=== PATIENT | male | born 1960 | race American Indian/Alaskan Native ===

== ENCOUNTER 2020-09-01 00:47 | Inpatient (IN) | payer SELFPAY ==
[2020-09-01] MEDS ORDERED: SODIUM CHLORIDE 0.9% 1000 ML 1,000 ML IV ONE (01:01)
--- NOTE | 2020-09-01 01:07 | Emergency Department Report ---
ED Altered Mental Status HPI - General Chief Complaint: Altered Mental Status Stated Complaint: BODY PAIN Time Seen by Provider: 09/01/20 01:01 Source: patient, EMS Mode of arrival: Stretcher Limitations: Altered Mental Status - History of Present Illness Initial Comments: Patient is 59 years old male with unknown past medical history. Patient brought to the emergency room via EMS from a local residence. EMS stated that patient is living in a house with approximately 20 other people. EMS stated that patient roommate called EMS stating that he is became more altered recently and confused and he heard him moaning tonight. Patient is alert however he is disoriented in time place and person. Patient stated that he is hurting all over. Patient is shaking. Patient admitted using alcohol daily and stated that the last time he drink yesterday. Unable to obtain more history at this point. MD Complaint: altered mental status, confusion -: unknown Context: alcohol abuse - Related Data Allergies Allergy/AdvReac Type Severity Reaction Status Date / Time lisinopril Allergy Angioedema Verified 09/01/20 02:24 ED Review of Systems ROS: Stated complaint: BODY PAIN Other details as noted in HPI Comment: All other systems reviewed and negative Constitutional: denies: chills, fever Cardiovascular: denies: chest pain Gastrointestinal: nausea Musculoskeletal: denies: back pain Neurological: weakness. denies: headache ED Physical Exam - General Limitations: Altered Mental Status General appearance: alert, in no apparent distress, cachectic - Head Head exam: Present: atraumatic, normocephalic, normal inspection - Eye Eye exam: Present: normal appearance - ENT ENT exam: Present: mucous membranes dry - Neck Neck exam: Present: normal inspection, full ROM. Absent: tenderness, menin gismus - Respiratory Respiratory exam: Present: normal lung sounds bilaterally - Cardiovascular Cardiovascular Exam: Present: regular rate, normal rhythm, normal heart sounds - GI/Abdominal GI/Abdominal exam: Present: soft, normal bowel sounds. Absent: distended, tenderness, guarding, rebound, rigid, organomegaly, mass, bruit, pulsatile mass, hernia - Extremities Exam Extremities exam: Present: normal inspection, full ROM, normal capillary refill - Back Exam Back exam: Present: normal inspection, full ROM. Absent: CVA tenderness (R), CVA tenderness (L) - Neurological Exam Neurological exam: Present: alert, altered, CN II-XII intact, reflexes normal. Absent: motor sensory deficit - Psychiatric Psychiatric exam: Present: flat affect - Skin Skin exam: Present: warm, dry, intact ED Course Vital Signs 09/01/20 09/01/20 09/01/20 01:11 01:12 02:38 Temperature 98.7 F Pulse Rate 84 77 Respiratory 18 18 10 L Rate Blood Pressure Blood Pressure 157/99 [Right] O2 Sat by Pulse 100 100 100 Oximetry 09/01/20 09/01/20 03:01 03:18 Temperature Pulse Rate 68 68 Respiratory 12 Rate Blood Pressure 142/96 Blood Pressure [Right] O2 Sat by Pulse 100 Oximetry - Lab Data Result diagrams: 09/01/20 01:20 09/01/20 01:20 Lab Results 09/01/20 09/01/20 09/01/20 Range/Units 01:20 01:20 01:20 WBC 9.0 (4.5-11.0) K/mm3 RBC 3.73 (3.65-5.03) M/mm3 Hgb 13.5 (11.8-15.2) gm/dl Hct 38.1 (35.5-45.6) % MCV 102 H (84-94) fl MCH 36 H (28-32) pg MCHC 35 H (32-34) % RDW 13.0 L (13.2-15.2) % Plt Count 149 (140-440) K/mm3 Lymph % (Auto) 6.7 L (13.4-35.0) % [place] % (Auto) 4.8 (0.0-7.3) % Eos % (Auto) 0.1 (0.0-4.3) % Baso % (Auto) 0.2 (0.0-1.8) % Lymph # (Auto) 0.6 L (1.2-5.4) K/mm3 [place] # (Auto) 0.4 (0.0-0.8) K/mm3 Eos # (Auto) 0.0 (0.0-0.4) K/mm3 Baso # (Auto) 0.0 (0.0-0.1) K/mm3 Seg Neutrophils % 88.2 H (40.0-70.0) % Seg Neutrophils # 7.9 H (1.8-7.7) K/mm3 PT 13.1 (12.2-14.9) Sec. INR 1.01 (0.87-1.13) APTT 34.5 (24.2-36.6) Sec. Sodium 122 L (137-145) mmol/L Potassium 3.9 (3.6-5.0) mmol/L Chloride 80.5 L (98-107) mmol/L Carbon Dioxide 24 (22-30) mmol/L Anion Gap 21 mmol/L BUN 20 (9-20) mg/dL Creatinine 1.1 (0.8-1.3) mg/dL Estimated GFR > 60 ml/min BUN/Creatinine Ratio 18 % Glucose 113 H (75-100) mg/dL Lactic Acid (0.7-2.0) mmol/L Calcium 8.9 (8.4-10.2) mg/dL Total Bilirubin 1.40 H (0.1-1.2) mg/dL Direct Bilirubin 0.7 H (0-0.2) mg/dL Indirect Bilirubin 0.7 mg/dL AST 263 H (5-40) units/L ALT 156 H (7-56) units/L Alkaline Phosphatase 210 H (35-129) units/L Ammonia (25-60) umol/L Troponin T < 0.010 (0.00-0.029) ng/mL Total Protein 6.6 (6.3-8.2) g/dL Albumin 4.0 (3.9-5) g/dL Albumin/Globulin Ratio 1.5 % TSH (0.270-4.200) mlU/mL Plasma/Serum Alcohol (0-0.07) % 09/01/20 09/01/20 09/01/20 Range/Units 01:20 01:20 01:20 WBC (4.5-11.0) K/mm3 RBC (3.65-5.03) M/mm3 Hgb (11.8-15.2) gm/dl Hct (35.5-45.6) % MCV (84-94) fl MCH (28-32) pg MCHC (32-34) % RDW (13.2-15.2) % Plt Count (140-440) K/mm3 Lymph % (Auto) (13.4-35.0) % [place] % (Auto) (0.0-7.3) % Eos % (Auto) (0.0-4.3) % Baso % (Auto) (0.0-1.8) % Lymph # (Auto) (1.2-5.4) K/mm3 [place] # (Auto) (0.0-0.8) K/mm3 Eos # (Auto) (0.0-0.4) K/mm3 Baso # (Auto) (0.0-0.1) K/mm3 Seg Neutrophils % (40.0-70.0) % Seg Neutrophils # (1.8-7.7) K/mm3 PT (12.2-14.9) Sec. INR (0.87-1.13) APTT (24.2-36.6) Sec. Sodium (137-145) mmol/L Potassium (3.6-5.0) mmol/L Chloride (98-107) mmol/L Carbon Dioxide (22-30) mmol/L Anion Gap mmol/L BUN (9-20) mg/dL Creatinine (0.8-1.3) mg/dL Estimated GFR ml/min BUN/Creatinine Ratio % Glucose (75-100) mg/dL Lactic Acid 5.40 H* (0.7-2.0) mmol/L Calcium (8.4-10.2) mg/dL Total Bilirubin (0.1-1.2) mg/dL Direct Bilirubin (0-0.2) mg/dL Indirect Bilirubin mg/dL AST (5-40) units/L ALT (7-56) units/L Alkaline Phosphatase (35-129) units/L Ammonia 18.0 L (25-60) umol/L Troponin T (0.00-0.029) ng/mL Total Protein (6.3-8.2) g/dL Albumin (3.9-5) g/dL Albumin/Globulin Ratio % TSH 2.620 (0.270-4.200) mlU/mL Plasma/Serum Alcohol (0-0.07) % 09/01/20 Range/Units 01:20 WBC (4.5-11.0) K/mm3 RBC (3.65-5.03) M/mm3 Hgb (11.8-15.2) gm/dl Hct (35.5-45.6) % MCV (84-94) fl MCH (28-32) pg MCHC (32-34) % RDW (13.2-15.2) % Plt Count (140-440) K/mm3 Lymph % (Auto) (13.4-35.0) % [place] % (Auto) (0.0-7.3) % Eos % (Auto) (0.0-4.3) % Baso % (Auto) (0.0-1.8) % Lymph # (Auto) (1.2-5.4) K/mm3 [place] # (Auto) (0.0-0.8) K/mm3 Eos # (Auto) (0.0-0.4) K/mm3 Baso # (Auto) (0.0-0.1) K/mm3 Seg Neutrophils % (40.0-70.0) % Seg Neutrophils # (1.8-7.7) K/mm3 PT (12.2-14.9) Sec. INR (0.87-1.13) APTT (24.2-36.6) Sec. Sodium (137-145) mmol/L Potassium (3.6-5.0) mmol/L Chloride (98-107) mmol/L Carbon Dioxide (22-30) mmol/L Anion Gap mmol/L BUN (9-20) mg/dL Creatinine (0.8-1.3) mg/dL Estimated GFR ml/min BUN/Creatinine Ratio % Glucose (75-100) mg/dL Lactic Acid (0.7-2.0) mmol/L Calcium (8.4-10.2) mg/dL Total Bilirubin (0.1-1.2) mg/dL Direct Bilirubin (0-0.2) mg/dL Indirect Bilirubin mg/dL AST (5-40) units/L ALT (7-56) units/L Alkaline Phosphatase (35-129) units/L Ammonia (25-60) umol/L Troponin T (0.00-0.029) ng/mL Total Protein (6.3-8.2) g/dL Albumin (3.9-5) g/dL Albumin/Globulin Ratio % TSH (0.270-4.200) mlU/mL Plasma/Serum Alcohol 0.02 (0-0.07) % - EKG Data -: EKG Interpreted by Md EKG shows normal: sinus rhythm Rate: normal Interpretation: no acute changes - Radiology Data Radiology results: report reviewed - Medical Decision Making Patient is 59 years old male with unknown past medical history. Patient brought to the emergency room via EMS from a local residence. EMS stated that patient is living in a house with approximately 20 other people. EMS stated that patient roommate called EMS stating that he is became more altered recently and confused and he heard him moaning tonight. Patient is alert however he is disoriented in time place and person. Patient stated that he is hurting all over. Patient is shaking. Patient admitted using alcohol daily and stated that the last time he drink yesterday. Unable to obtain more history at this point. Patient received normal saline and Zofran. Labs reviewed and is unremarkable except for slightly elevated liver enzyme, AST is more than ALT indicating most likely alcoholic cause. CT brain is unremarkable. Chest x-ray is negative for acute finding. Patient mention to the nurse that he is suicidal but he does not have a plan. Patient denied any homicidal ideation. No visual or auditory hallucination. CIWA protocol initiated patient CIWA score is 10. Patient received Ativan and banana bag. Patient lactic acid is 5.4. I discussed the patient with Dr. Jacobs, he agreed to admit the patient to medical service for further management. Critical care attestation.: If time is entered above; I have spent that time in minutes in the direct care of this critically ill patient, excluding procedure time. ED Disposition Clinical Impression: Delirium tremens, Altered mental status, Lactic acidosis, Dehydration Disposition: 09 OP ADMIT IP TO THIS HOSP Is pt being admited?: Yes Condition: Stable Referrals: PRIMARY CARE, [Primary Care Provider] - 3-5 Days
--- NOTE | 2020-09-01 01:44 | XRay Report ---
XR chest 1V ap INDICATION / CLINICAL INFORMATION: Altered Mental Status. COMPARISON: None available. FINDINGS: SUPPORT DEVICES: None. HEART /PULMONARY VASCULATURE: No significant abnormality. LUNGS / PLEURA: No significant pulmonary or pleural abnormality. No pneumothorax. ADDITIONAL FINDINGS: No significant additional findings. IMPRESSION: 1. No acute findings. Signer Name: Bogdan Barrett MD Signed: 09/01/2020 1:40 AM Workstation Name: [id number]
--- NOTE | 2020-09-01 02:07 | Cat Scan Report ---
CT HEAD WITHOUT CONTRAST INDICATION / CLINICAL INFORMATION: Altered Mental Status. TECHNIQUE: All CT scans at this location are performed using CT dose reduction for ALARA by means of automated exposure control. COMPARISON: None available. FINDINGS: BRAIN PARENCHYMA: No acute intracranial hemorrhage. No evidence of recent infarct. No mass effect or midline shift. White matter chronic small vessel ischemic changes. VENTRICULAR SYSTEM/EXTRA-AXIAL SPACES: Age-related cerebral atrophy. No extra-axial fluid collection. ORBITS: Normal as visualized. SKELETAL SYSTEM/SOFT TISSUES: Normal bones and soft tissues. PARANASAL SINUSES/MASTOID AIR CELLS: No significant abnormality. ADDITIONAL FINDINGS: None. IMPRESSION: 1. No acute intracranial abnormality. Signer Name: Bogdan Barrett MD Signed: 09/01/2020 2:02 AM Workstation Name: [id number]
[2020-09-01 02:11] LABS: Basophils % (Auto) 0.2 % (0.0-1.8); Eosinophils % (Auto) 0.1 % (0.0-4.3); Hematocrit 38.1 % (35.5-45.6); Hemoglobin 13.5 gm/dl (11.8-15.2); Lymphocytes # (Auto) 0.6 K/mm3 (1.2-5.4); Lymphocytes % (Auto) 6.7 % (13.4-35.0); Mean Corpuscular HGB Conc 35 % (32-34); Mean Corpuscular Volume 102 fl (84-94); Monocytes # (Auto) 0.4 K/mm3 (0.0-0.8); Monocytes % (Auto) 4.8 % (0.0-7.3); Platelet Count 149 K/mm3 (140-440); Red Blood Count 3.73 M/mm3 (3.65-5.03)
[2020-09-01 02:20] LABS: Alanine Aminotransferase 156 units/L (7-56); BUN/Creatinine Ratio 18; Bilirubin,Direct 0.7 mg/dL (0-0.2); Blood Urea Nitrogen 20 mg/dL (9-20); Calcium 8.9 mg/dL (8.4-10.2); Hemolysis Index 7; INR 1.01 (0.87-1.13)
[2020-09-01 02:21] LABS: Partial Thromboplastin Time 34.5 Sec. (24.2-36.6)
[2020-09-01] MEDS ORDERED: ONDANSETRON 4 MG/2 ML INJ ONE (02:26)
[2020-09-01] MEDS ORDERED: ONDANSETRON 4 MG/2 ML INJ IV ONE (02:26)
[2020-09-01] MEDS ORDERED: LORazepam 2 MG/ML VIAL IV PRN ×2 (03:07)
[2020-09-01] MEDS: LORazepam 2 MG/ML VIAL IV PRN ×2 (03:43→11:55)
[2020-09-01] MEDS ORDERED: THIAMINE 100 MG, FOLIC ACID 1 MG, MULTIPLE VITAMIN INJ, ADULT 10 ML in SODIUM CHLORIDE ... IV ONE (03:48)
--- NOTE | 2020-09-01 08:58 | Consultation ---
History of Present Illness - Reason for Consult Consult date: 09/01/20 Reason for consult: MHE Requesting physician: DESI CAVAZOS - History of Present Psychiatric Illness Per ED Provider: Patient is 59 years old male with unknown past medical history. Patient brought to the emergency room via EMS from a local residence. EMS stated that patient is living in a house with approximately 20 other people. EMS stated that patient roommate called EMS stating that he is became more altered recently and confused and he heard him moaning tonight. Patient is alert however he is disoriented in time place and person. Patient stated that he is hurting all over. Patient is shaking. Patient admitted using alcohol daily and stated that the last time he drink yesterday. Unable to obtain more history at this point. PSYCH HPI Patient is a 59-year-old single, currently unemployed -[place] male who resides in a rented apartment with other people with no past psychiatric history and has past medical history of hypertension diabetes who was brought to the ED by EMS after roommate complaining of patient altered mental status and confusion. Per patient, patient reported he is in the hospital because there is something wrong with him but he does not know, patient states he has been feeling different and ill on the inside lately, endorses sometimes he does hear voices in his head. Patient endorses consuming beer on a daily basis, reported he was working until 2 to 3 weeks ago, denies any past psychiatric history but endorses medical history. PAST PSYCHIATRIC HISTORY Diagnoses: None reported Suicide attempts or Self-harm behavior: None reported Prior psychiatric hospitalizations: None reported Substance Abuse history: Alcohol Previous psychiatric medications tried: None reported Outpatient treatment: None reported PAST MEDICAL HISTORY: Hypertension and type Family Psychiatric History: None reported or documented SOCIAL HISTORY Marital Status: Single Living Arrangements: Rent Employment Status: Unemployed Access to guns/weapons: Education: Some college History of Abuse: None Legal History: None REVIEW OF SYSTEMS Constitutional: Negative for weight loss ENT: Negative for stridor Respiratory: Negative for cough or hemoptysis All other systems reviewed and are negative MENTAL STATUS EXAMINATION General Appearance and Behavior: Age appropriate, good hygiene, wearing appropriate clothes, uncooperative polite with questioning. Cooperation: Withdrawn Psychomotor Behavior: Psychomotor agitation Mood: Affect and affective range: Flat Thought Process: Tangential, loose associattion Thought Content: Paranoid and confused Speech: Normal volume, Regular rate and rhythm, Intellectual Functioning: Poor Suicidal Ideation: N/A Homicidal Ideation: N/A Impulse Control: Unimpaired Insight and Judgment: Impaired Memory: memory impaired Attention:Distractible, Orientation: Alert, oriented and confused Diagnoses: Assessment and Plan - Psychiatric problem (1) Delirium due to another medical condition Current Visit: Yes Status: Acute F05 Treatment Plan Sodium is low at 122 Concern for metabolic encephalopathy, history of daily alcohol consumption concern for withdrawal/delirium tremens. Start on THiamine, and Benzzos. hOld of Deparkote, due to liver toxicity MEDICATIONS: Risks, benefits and alternatives of medications discussed with the patient, questions answered and consent obtained from patient. PSYCHOTHERAPY: Supportive psychotherapy provided MEDICAL: Per primary team DELIRIUM PRECAUTIONS: Please re-orient patient frequently, keep lights on during the day, and minimize benzodiazepines and opiates as these medications could worsen patient's confusion. ORGANIZATIONAL EFFECTIVENESS DIRECTOR: DISPOSITION: Do Not Recommend acute inpatient psychiatric hospitalization at this time. Case discussed with Dr. De León who agrees with current disposition FOLLOW-UP: Will follow for medical manner Thank you for the consult. Please contact with any questions and/or concerns. Medications and Allergies Allergies Allergy/AdvReac Type Severity Reaction Status Date / Time lisinopril Allergy Angioedema Verified 09/01/20 02:24 Home Medications Medication Instructions Recorded Confirmed Last Taken Type Unobtainable 09/01/20 09/01/20 Unknown History Active Meds: Active Medications Lorazepam (Lorazepam 2 Mg/Ml Vial) 2 mg IV Q1H PRN PRN Reason: CIWA-Ar 8-15 Last Admin: 09/01/20 03:43 Dose: 2 mg Documented by: Lorazepam (Lorazepam 2 Mg/Ml Vial) 4 mg IV Q1H PRN PRN Reason: CIWA-Ar 16-25 Lorazepam (Lorazepam 2 Mg/Ml Vial) 4 mg IV Q15MIN PRN PRN Reason: CIWA-Ar >25 Mental Status Exam - Vital signs Last Vital Signs Temp 98.7 F 09/01/20 01:11 Pulse 75 09/01/20 08:00 Resp 10 L 09/01/20 08:00 BP 144/93 09/01/20 08:00 Pulse Ox 98 09/01/20 08:00 Results Result Diagrams: 09/01/20 01:20 09/01/20 01:20 Abnormal lab results 09/01/20 09/01/20 09/01/20 Range/Units 01:20 01:20 01:20 MCV 102 H (84-94) fl MCH 36 H (28-32) pg MCHC 35 H (32-34) % RDW 13.0 L (13.2-15.2) % Lymph % (Auto) 6.7 L (13.4-35.0) % Lymph # (Auto) 0.6 L (1.2-5.4) K/mm3 Seg Neutrophils % 88.2 H (40.0-70.0) % Seg Neutrophils # 7.9 H (1.8-7.7) K/mm3 Sodium 122 L (137-145) mmol/L Chloride 80.5 L (98-107) mmol/L Glucose 113 H (75-100) mg/dL Lactic Acid 5.40 H* (0.7-2.0) mmol/L Total Bilirubin 1.40 H (0.1-1.2) mg/dL Direct Bilirubin 0.7 H (0-0.2) mg/dL AST 263 H (5-40) units/L ALT 156 H (7-56) units/L Alkaline Phosphatase 210 H (35-129) units/L Ammonia (25-60) umol/L Salicylates (2.8-20.0) mg/dL Acetaminophen (10.0-30.0) ug/mL 09/01/20 09/01/20 09/01/20 Range/Units 01:20 02:50 02:50 MCV (84-94) fl MCH (28-32) pg MCHC (32-34) % RDW (13.2-15.2) % Lymph % (Auto) (13.4-35.0) % Lymph # (Auto) (1.2-5.4) K/mm3 Seg Neutrophils % (40.0-70.0) % Seg Neutrophils # (1.8-7.7) K/mm3 Sodium (137-145) mmol/L Chloride (98-107) mmol/L Glucose (75-100) mg/dL Lactic Acid (0.7-2.0) mmol/L Total Bilirubin (0.1-1.2) mg/dL Direct Bilirubin (0-0.2) mg/dL AST (5-40) units/L ALT (7-56) units/L Alkaline Phosphatase (35-129) units/L Ammonia 18.0 L (25-60) umol/L Salicylates < 0.3 L (2.8-20.0) mg/dL Acetaminophen 5.0 L (10.0-30.0) ug/mL All other labs normal. Assessment and Plan - Psychiatric problem (1) Delirium due to another medical condition Current Visit: Yes Status: Acute
[2020-09-01] MEDS ORDERED: ONDANSETRON 4 MG/2 ML INJ IV PRN (13:37)
--- NOTE | 2020-09-01 13:39 | History and Physical Report ---
History of Present Illness Date of examination: 09/01/20 Date of admission: 09/01/20 04:29 History of present illness: 59 years old male with a medical history of hypertension, alcohol abuse and neuropathy brought to the emergency room via EMS from a local residence. EMS stated that patient is living in a house with approximately 20 other people. EMS stated that patient roommate called EMS stating that he is became more altered recently and confused and he heard him moaning at night. In the ER, patient was alert however he is disoriented in time place and person. Patient was complaining of generalized body aches and was tremulous. Uses alcohol daily and last drink was about 24 hours prior. His labs showed sodium 122, elevated liver function tests. Alcohol level was less than 0.02. Now admitted for acute metabolic encephalopathy 2/2 hyponatremia, possible EtoH. Past History Past Medical History: hypertension Social history: smoking, alcohol abuse Medications and Allergies Allergies Allergy/AdvReac Type Severity Reaction Status Date / Time lisinopril Allergy Angioedema Verified 09/01/20 02:24 Home Medications Medication Instructions Recorded Confirmed Last Taken Type Unobtainable 09/01/20 09/01/20 Unknown History Active Meds: Active Medications Acetaminophen (Acetaminophen 325 Mg Tab) 650 mg PO Q4H PRN PRN Reason: Pain MILD(1-3)/Fever >100.5/ALMENDAREZ Enoxaparin Sodium (Enoxaparin 40 Mg/0.4 Ml Inj) 40 mg SUB-Q QDAY@2200 GIULIA; Protocol Thiamine HCl 100 mg/ Sodium (Chloride) 51 mls @ 100 mls/hr IV QDAY GIULIA Lorazepam (Lorazepam 2 Mg/Ml Vial) 2 mg IV Q1H PRN PRN Reason: CIWA-Ar 8-15 Last Admin: 09/01/20 11:55 Dose: 2 mg Documented by: Lorazepam (Lorazepam 2 Mg/Ml Vial) 4 mg IV Q1H PRN PRN Reason: CIWA-Ar 16-25 Lorazepam (Lorazepam 2 Mg/Ml Vial) 4 mg IV Q15MIN PRN PRN Reason: CIWA-Ar >25 Ondansetron HCl (Ondansetron 4 Mg/2 Ml Inj) 4 mg IV Q8H PRN PRN Reason: Nausea And Vomiting Sodium Chloride (Sodium Chloride 0.9% 10 Ml Flush Syringe) 10 ml IV BID GIULIA Sodium Chloride (Sodium Chloride 0.9% 10 Ml Flush Syringe) 10 ml IV PRN PRN PRN Reason: LINE FLUSH Review of Systems All systems: negative (Bilateral leg pain) Exam - Constitutional Vitals: Temp Pulse Resp BP Pulse Ox 98.7 F 74 10 L 140/91 99 09/01/20 01:11 09/01/20 11:16 09/01/20 11:16 09/01/20 11:16 09/01/20 11:16 General appearance: Present: no acute distress, well-nourished, other (Malnourished) - EENT Eyes: Present: PERRL ENT: hearing intact, clear oral mucosa - Neck Neck: Present: supple, normal ROM - Respiratory Respiratory effort: normal Respiratory: bilateral: CTA - Cardiovascular Heart Sounds: Present: S1 & S2. Absent: rub, click - Extremities Extremities: pulses symmetrical, No edema Peripheral Pulses: within normal limits - Abdominal General gastrointestinal: Present: soft, non-tender, non-distended, normal bowel sounds Male genitourinary: Present: normal - Integumentary Integumentary: Present: clear, warm, dry - Musculoskeletal Musculoskeletal: gait normal, strength equal bilaterally - Psychiatric Psychiatric: appropriate mood/affect, intact judgment & insight - Neurologic Neurologic: CNII-XII intact, moves all extremities HEART Score - HEART Score Troponin: Troponin T < 0.010 ng/mL (0.00-0.029) 09/01/20 01:20 Results - Labs CBC & Chem 7: 09/01/20 01:20 09/01/20 01:20 Labs: Laboratory Last Values WBC 9.0 K/mm3 (4.5-11.0) 09/01/20 01:20 RBC 3.73 M/mm3 (3.65-5.03) 09/01/20 01:20 Hgb 13.5 gm/dl (11.8-15.2) 09/01/20 01:20 Hct 38.1 % (35.5-45.6) 09/01/20 01:20 MCV 102 fl (84-94) H 09/01/20 01:20 MCH 36 pg (28-32) H 09/01/20 01:20 MCHC 35 % (32-34) H 09/01/20 01:20 RDW 13.0 % (13.2-15.2) L 09/01/20 01:20 Plt Count 149 K/mm3 (140-440) 09/01/20 01:20 Lymph % (Auto) 6.7 % (13.4-35.0) L 09/01/20 01:20 [place] % (Auto) 4.8 % (0.0-7.3) 09/01/20 01:20 Eos % (Auto) 0.1 % (0.0-4.3) 09/01/20 01:20 Baso % (Auto) 0.2 % (0.0-1.8) 09/01/20 01:20 Lymph # (Auto) 0.6 K/mm3 (1.2-5.4) L 09/01/20 01:20 [place] # (Auto) 0.4 K/mm3 (0.0-0.8) 09/01/20 01:20 Eos # (Auto) 0.0 K/mm3 (0.0-0.4) 09/01/20 01:20 Baso # (Auto) 0.0 K/mm3 (0.0-0.1) 09/01/20 01:20 Seg Neutrophils % 88.2 % (40.0-70.0) H 09/01/20 01:20 Seg Neutrophils # 7.9 K/mm3 (1.8-7.7) H 09/01/20 01:20 PT 13.1 Sec. (12.2-14.9) 09/01/20 01:20 INR 1.01 (0.87-1.13) 09/01/20 01:20 APTT 34.5 Sec. (24.2-36.6) 09/01/20 01:20 Sodium 122 mmol/L (137-145) L 09/01/20 01:20 Potassium 3.9 mmol/L (3.6-5.0) 09/01/20 01:20 Chloride 80.5 mmol/L (98-107) L 09/01/20 01:20 Carbon Dioxide 24 mmol/L (22-30) 09/01/20 01:20 Anion Gap 21 mmol/L 09/01/20 01:20 BUN 20 mg/dL (9-20) 09/01/20 01:20 Creatinine 1.1 mg/dL (0.8-1.3) 09/01/20 01:20 Estimated GFR > 60 ml/min 09/01/20 01:20 BUN/Creatinine Ratio 18 % 09/01/20 01:20 Glucose 113 mg/dL (75-100) H 09/01/20 01:20 POC Glucose 90 mg/dL (70-105) 09/01/20 08:41 Lactic Acid 2.00 mmol/L (0.7-2.0) 09/01/20 03:25 Calcium 8.9 mg/dL (8.4-10.2) 09/01/20 01:20 Total Bilirubin 1.40 mg/dL (0.1-1.2) H 09/01/20 01:20 Direct Bilirubin 0.7 mg/dL (0-0.2) H 09/01/20 01:20 Indirect Bilirubin 0.7 mg/dL 09/01/20 01:20 AST 263 units/L (5-40) H 09/01/20 01:20 ALT 156 units/L (7-56) H 09/01/20 01:20 Alkaline Phosphatase 210 units/L (35-129) H 09/01/20 01:20 Ammonia 18.0 umol/L (25-60) L 09/01/20 01:20 Troponin T < 0.010 ng/mL (0.00-0.029) 09/01/20 01:20 Total Protein 6.6 g/dL (6.3-8.2) 09/01/20 01:20 Albumin 4.0 g/dL (3.9-5) 09/01/20 01:20 Albumin/Globulin Ratio 1.5 % 09/01/20 01:20 TSH 2.620 mlU/mL (0.270-4.200) 09/01/20 01:20 Salicylates < 0.3 mg/dL (2.8-20.0) L 09/01/20 02:50 Acetaminophen 5.0 ug/mL (10.0-30.0) L 09/01/20 02:50 Plasma/Serum Alcohol 0.02 % (0-0.07) 09/01/20 01:20 Microbiology: Microbiology 09/01/20 01:20 Peripheral/Venous Blood Culture - Preliminary Culture in Progress 09/01/20 01:43 Peripheral/Venous Blood Culture - Preliminary Culture in Progress Assessment and Plan Assessment and plan: #Acute metabolic encephalopathy Likely from hyponatremia Alcohol level less than 0.02 so I doubt alcohol intoxication responsible for confusion Check COVID-19 #Hyponatremia Secondary to alcohol abuse Sodium 122 Trend sodium today Urine electrolytes and serum osmolality ordered #Hypertension Patient reportedly takes amlodipine at home Monitor blood pressure for now and initiate BP medications when appropriate #Neuropathy Denies any history of diabetes Check hemoglobin A1c Gabapentin nightly #DVT prophylaxis-Lovenox Full code Disposition-likely back to home [patient stated he lives with friends]. Ordered PT/OT
[2020-09-01] MEDS ORDERED: ACETAMINOPHEN 325 MG TAB PO PRN (14:00)
[2020-09-01 14:43] LABS: BUN/Creatinine Ratio 13; Blood Urea Nitrogen 13 mg/dL (9-20); Calcium 7.8 mg/dL (8.4-10.2); Hemolysis Index 6
[2020-09-01] MEDS ORDERED: SODIUM CHLORIDE 0.9% 500 ML 500 ML IV ONE (16:17)
[2020-09-01] MEDS: SODIUM CHLORIDE 1 GM TAB PO SCH ×2 (16:46→21:46)
[2020-09-01 21:25] LABS: BUN/Creatinine Ratio 13; Blood Urea Nitrogen 16 mg/dL (9-20); Calcium 7.8 mg/dL (8.4-10.2); Hemolysis Index 25
[2020-09-01] MEDS: ENOXAPARIN 40 MG/0.4 ML INJ SUB-Q SCH (21:47)
[2020-09-02 02:42] LABS: Basophils % (Auto) 0.4 % (0.0-1.8); Eosinophils # (Auto) 0.1 K/mm3 (0.0-0.4); Eosinophils % (Auto) 0.8 % (0.0-4.3); Hematocrit 34.3 % (35.5-45.6); Hemoglobin 11.8 gm/dl (11.8-15.2); Lymphocytes % (Auto) 14.4 % (13.4-35.0); Mean Corpuscular HGB Conc 35 % (32-34); Mean Corpuscular Volume 106 fl (84-94); Monocytes # (Auto) 0.5 K/mm3 (0.0-0.8); Monocytes % (Auto) 6.9 % (0.0-7.3); Red Blood Count 3.24 M/mm3 (3.65-5.03); Red Cell Distribution Width 12.7 % (13.2-15.2)
[2020-09-02 02:56] LABS: Alanine Aminotransferase 116 units/L (7-56); Albumin 3.3 g/dL (3.9-5); BUN/Creatinine Ratio 13; Blood Urea Nitrogen 15 mg/dL (9-20); Hemolysis Index 13
[2020-09-02 03:24] LABS: Platelet Count 93 K/mm3 (140-440)
[2020-09-02 05:18] LABS: Chloride, Urine 81.2 mmolL (110-250)
[2020-09-02 05:24] LABS: Bilirubin,Urine NEG (Negative); Blood,Urine NEG (Negative); Color,Urine Yellow (Yellow); Mucus,Urine FEW /HPF; Protein,Urine <15 mg/dL mg/dL (Negative); RBC,Urine < 1.0 /HPF (0.0-6.0); WBC,Urine < 1.0 /HPF (0.0-6.0)
[2020-09-02 05:49] LABS: Amphetamine Screen,Urine PRESUMPTIVE NEGATIVE; Benzodiazepines Screen,Urine PRESUMPTIVE NEGATIVE; Cannabinoid Screen,Urine PRESUMPTIVE NEGATIVE; Cocaine Screen,Urine PRESUMPTIVE NEGATIVE; Methadone Screen,Urine PRESUMPTIVE NEGATIVE; Opiate Screen,Urine PRESUMPTIVE NEGATIVE
[2020-09-02] MEDS ORDERED: SODIUM CHLORIDE 0.9% 1000 ML 500 ML IV ONE (08:00)
[2020-09-02] MEDS ORDERED: POTASSIUM CHLORIDE ER 20 MEQ TAB PO NR ×2 (08:00→10:00)
[2020-09-02] MEDS: SODIUM CHLORIDE 1 GM TAB PO SCH ×2 (09:03→22:06)
[2020-09-02] MEDS: amLODIPine 10 MG TAB PO SCH (09:03)
--- NOTE | 2020-09-02 09:33 | Progress Note ---
Subjective - Reason for Consult Consult date: 09/02/20 Reason for consult: MHE Requesting physician: DESI CAVAZOS - Chief Complaint Chief complaint: Psych Progress REVIEW OF SYSTEMS Constitutional: Negative for weight loss ENT: Negative for stridor Respiratory: Negative for cough or hemoptysis All other systems reviewed and are negative MENTAL STATUS EXAMINATION General Appearance and Behavior: Age appropriate, good hygiene, wearing appropriate clothes, uncooperative polite with questioning. Cooperation: Withdrawn Psychomotor Behavior: Psychomotor agitation Mood: Affect and affective range: Flat Thought Process: Tangential, loose associattion Thought Content: Paranoid and confused Speech: Normal volume, Regular rate and rhythm, Intellectual Functioning: Poor Suicidal Ideation: N/A Homicidal Ideation: N/A Impulse Control: Unimpaired Insight and Judgment: Impaired Memory: memory impaired Attention:Distractible, Orientation: Alert, oriented and confused Diagnoses: Assessment and Plan - Psychiatric problem (1) Delirium due to another medical condition Current Visit: Yes Status: Acute F05 Treatment Plan Sodium is low at 122 Concern for metabolic encephalopathy, history of daily alcohol consumption concern for withdrawal/delirium tremens. Start on THiamine, and Benzzos. hOld of Deparkote, due to liver toxicity MEDICATIONS: Risks, benefits and alternatives of medications discussed with the patient, questions answered and consent obtained from patient. PSYCHOTHERAPY: Supportive psychotherapy provided MEDICAL: Per primary team DELIRIUM PRECAUTIONS: Please re-orient patient frequently, keep lights on during the day, and minimize benzodiazepines and opiates as these medications could worsen patient's confusion. VOCATIONAL TEACHER: DISPOSITION: Do Not Recommend acute inpatient psychiatric hospitalization at this time. Case discussed with Dr. De León who agrees with current disposition FOLLOW-UP: Will follow for medical manner Thank you for the consult. Please contact with any questions and/or concerns. Mental Status Exam - Vital signs Last Vital Signs Temp 98.8 F 09/02/20 06:02 Pulse 58 L 09/02/20 09:03 Resp 20 09/02/20 06:02 BP 143/98 09/02/20 09:03 Pulse Ox 93 09/02/20 06:02 Assessment and Plan - Patient Problems (1) Delirium due to another medical condition Current Visit: Yes Status: Acute
[2020-09-02] MEDS ORDERED: THIAMINE 100 MG in SODIUM CHLORIDE 0.9% 50 ML IV SCH (10:00)
--- NOTE | 2020-09-02 11:01 | Progress Note ---
Assessment and Plan Assessment and plan: #Acute metabolic encephalopathy Resolved Likely from hyponatremia Alcohol level less than 0.02 so I doubt alcohol intoxication responsible for confusion COVID-19 test pending #Hyponatremia Improving Secondary to alcohol abuse #Hypertension Patient reportedly takes amlodipine at home Monitor blood pressure for now and initiate BP medications when appropriate #Neuropathy Denies any history of diabetes Check hemoglobin A1c Gabapentin nightly #Protein calorie malnutrition-moderate Nutrition evaluation #Lactic acidosis Lactic acid 3.5. Bolus NS Trend lactic acid #DVT prophylaxis-Lovenox Full code Disposition-likely back to home [patient stated he lives with friends]. Ordered PT/OT History Interval history: Patient seen and examined at bedside this morning Remains on alcohol withdrawal protocol Lactic acid still elevated. Afebrile CT chest and abdomen/pelvis ordered Hospitalist Physical - Physical exam Narrative exam: VITAL SIGNS: Reviewed. GENERAL: Awake HEAD: No signs of head trauma. EYES: Pupils are equal. Extraocular motions intact. MOUTH: Oropharynx is normal. NECK: No adenopathy, no JVD. CHEST: Chest with diminished breath sounds bilaterally. No wheezes, rales, or rhonchi. CARDIAC: normal S1 and S2, without murmurs, gallops, or rubs. ABDOMEN: Soft, non tender and non distended. No rebound or guarding, and no masses palpated. Bowel Sounds normal. MUSCULOSKELETAL: No edema NEUROLOGIC EXAM: Alert and oriented x3. No focal neurologic deficits SKIN: No obvious lesions - Constitutional Vitals: Temp Pulse Resp BP Pulse Ox 98.8 F 58 L 20 143/98 93 09/02/20 06:02 09/02/20 09:03 09/02/20 06:02 09/02/20 09:03 09/02/20 06:02 HEART Score - HEART Score Troponin: Troponin T < 0.010 ng/mL (0.00-0.029) 09/01/20 01:20 Results - Labs CBC & Chem 7: 09/02/20 02:21 09/02/20 02:21 Labs: Laboratory Last Values WBC 7.0 K/mm3 (4.5-11.0) 09/02/20 02:21 RBC 3.24 M/mm3 (3.65-5.03) L 09/02/20 02:21 Hgb 11.8 gm/dl (11.8-15.2) 09/02/20 02:21 Hct 34.3 % (35.5-45.6) L 09/02/20 02:21 MCV 106 fl (84-94) H 09/02/20 02:21 MCH 37 pg (28-32) H 09/02/20 02:21 MCHC 35 % (32-34) H 09/02/20 02:21 RDW 12.7 % (13.2-15.2) L 09/02/20 02:21 Plt Count 93 K/mm3 (140-440) L 09/02/20 02:21 Lymph % (Auto) 14.4 % (13.4-35.0) 09/02/20 02:21 [place] % (Auto) 6.9 % (0.0-7.3) 09/02/20 02:21 Eos % (Auto) 0.8 % (0.0-4.3) 09/02/20 02:21 Baso % (Auto) 0.4 % (0.0-1.8) 09/02/20 02:21 Lymph # (Auto) 1.0 K/mm3 (1.2-5.4) L 09/02/20 02:21 [place] # (Auto) 0.5 K/mm3 (0.0-0.8) 09/02/20 02:21 Eos # (Auto) 0.1 K/mm3 (0.0-0.4) 09/02/20 02:21 Baso # (Auto) 0.0 K/mm3 (0.0-0.1) 09/02/20 02:21 Seg Neutrophils % 77.5 % (40.0-70.0) H 09/02/20 02:21 Seg Neutrophils # 5.4 K/mm3 (1.8-7.7) 09/02/20 02:21 PT 13.1 Sec. (12.2-14.9) 09/01/20 01:20 INR 1.01 (0.87-1.13) 09/01/20 01:20 APTT 34.5 Sec. (24.2-36.6) 09/01/20 01:20 Sodium 133 mmol/L (137-145) L 09/02/20 02:21 Potassium 3.3 mmol/L (3.6-5.0) L 09/02/20 02:21 Chloride 96.3 mmol/L (98-107) L 09/02/20 02:21 Carbon Dioxide 23 mmol/L (22-30) 09/02/20 02:21 Anion Gap 17 mmol/L 09/02/20 02:21 BUN 15 mg/dL (9-20) 09/02/20 02:21 Creatinine 1.2 mg/dL (0.8-1.3) 09/02/20 02:21 Estimated GFR > 60 ml/min 09/02/20 02:21 BUN/Creatinine Ratio 13 % 09/02/20 02:21 Glucose 116 mg/dL (75-100) H 09/02/20 02:21 POC Glucose 90 mg/dL (70-105) 09/01/20 08:41 Osmolality 275 Mosm/kg 09/01/20 14:05 Lactic Acid 3.50 mmol/L (0.7-2.0) H* 09/02/20 09:31 Calcium 8.0 mg/dL (8.4-10.2) L 09/02/20 02:21 Total Bilirubin 1.00 mg/dL (0.1-1.2) 09/02/20 02:21 Direct Bilirubin 0.7 mg/dL (0-0.2) H 09/01/20 01:20 Indirect Bilirubin 0.7 mg/dL 09/01/20 01:20 AST 194 units/L (5-40) H 09/02/20 02:21 ALT 116 units/L (7-56) H 09/02/20 02:21 Alkaline Phosphatase 208 units/L (35-129) H 09/02/20 02:21 Ammonia 18.0 umol/L (25-60) L 09/01/20 01:20 Total Creatine Kinase 64 units/L (55-170) 09/01/20 14:05 Troponin T < 0.010 ng/mL (0.00-0.029) 09/01/20 01:20 Total Protein 5.3 g/dL (6.3-8.2) L 09/02/20 02:21 Albumin 3.3 g/dL (3.9-5) L 09/02/20 02:21 Albumin/Globulin Ratio 1.7 % 09/02/20 02:21 TSH 2.620 mlU/mL (0.270-4.200) 09/01/20 01:20 Urine Color Yellow (Yellow) 09/01/20 Unknown Urine Turbidity Clear (Clear) 09/01/20 Unknown Urine pH 5.0 (5.0-7.0) 09/01/20 Unknown Ur Specific [place] 1.011 (1.003-1.030) 09/01/20 Unknown Urine Protein <15 mg/dl mg/dL (Negative) 09/01/20 Unknown Urine Glucose (UA) Neg mg/dL (Negative) 09/01/20 Unknown Urine Ketones Neg mg/dL (Negative) 09/01/20 Unknown Urine Blood Neg (Negative) 09/01/20 Unknown Urine Nitrite Neg (Negative) 09/01/20 Unknown Urine Bilirubin Neg (Negative) 09/01/20 Unknown Urine Urobilinogen 4.0 mg/dL (<2.0) 09/01/20 Unknown Ur Leukocyte Esterase Neg (Negative) 09/01/20 Unknown Urine WBC (Auto) < 1.0 /HPF (0.0-6.0) 09/01/20 Unknown Urine RBC (Auto) < 1.0 /HPF (0.0-6.0) 09/01/20 Unknown Urine Mucus Few /HPF 09/01/20 Unknown Urine Osmolality 430 Mosm/kg 09/01/20 Unknown Urine Sodium 67 mmol/L 09/01/20 Unknown Urine Chloride 81.2 mmolL (110-250) L 09/01/20 Unknown Salicylates < 0.3 mg/dL (2.8-20.0) L 09/01/20 02:50 Urine Opiates Screen Presumptive negative 09/01/20 Unknown Urine Methadone Screen Presumptive negative 09/01/20 Unknown Acetaminophen 5.0 ug/mL (10.0-30.0) L 09/01/20 02:50 Ur Barbiturates Screen Presumptive negative 09/01/20 Unknown Ur Phencyclidine Scrn Presumptive negative 09/01/20 Unknown Ur Amphetamines Screen Presumptive negative 09/01/20 Unknown U Benzodiazepines Scrn Presumptive negative 09/01/20 Unknown Urine Cocaine Screen Presumptive negative 09/01/20 Unknown U Marijuana (THC) Screen Presumptive negative 09/01/20 Unknown Drugs of Abuse Note Disclamer 09/01/20 Unknown Plasma/Serum Alcohol 0.02 % (0-0.07) 09/01/20 01:20 Microbiology: Microbiology 09/01/20 01:20 Peripheral/Venous Blood Culture - Preliminary NO GROWTH AFTER 24 HOURS 09/01/20 01:43 Peripheral/Venous Blood Culture - Preliminary NO GROWTH AFTER 24 HOURS [place]/IV: Voiding Method Urinal Active Medications - Current Medications Current Medications: Generic Name Dose Route Start Last Admin Trade Name Freq PRN Reason Stop Dose Admin Acetaminophen 650 mg 09/01/20 14:00 09/01/20 14:24 Acetaminophen 325 Mg Tab PO 650 mg Q4H PRN Administration Pain MILD(1-3)/Fever >100.5/ALMENDAREZ Amlodipine Besylate 10 mg 09/02/20 10:00 09/02/20 09:03 Amlodipine 10 Mg Tab PO 10 mg QDAY GIULIA Administration Enoxaparin Sodium 40 mg 09/01/20 22:00 09/01/20 21:47 Enoxaparin 40 Mg/0.4 Ml Inj SUB-Q 40 mg QDAY@2200 GIULIA Administration Protocol Gabapentin 300 mg 09/02/20 18:00 Gabapentin 300 Mg Cap PO QPM GIULIA Lorazepam 2 mg 09/01/20 03:07 09/01/20 11:55 Lorazepam 2 Mg/Ml Vial IV 2 mg Q1H PRN Administration CIWA-Ar 8-15 Lorazepam 4 mg 09/01/20 03:07 Lorazepam 2 Mg/Ml Vial IV Q1H PRN CIWA-Ar 16-25 Lorazepam 4 mg 09/01/20 03:07 Lorazepam 2 Mg/Ml Vial IV Q15MIN PRN CIWA-Ar >25 Ondansetron HCl 4 mg 09/01/20 13:37 Ondansetron 4 Mg/2 Ml Inj IV Q8H PRN Nausea And Vomiting Potassium Chloride 20 meq 09/02/20 10:00 09/02/20 09:04 Potassium Chloride Er 20 Meq Tab PO 09/02/20 12:00 20 meq ONCE@1000 NR Administration Sodium Chloride 10 ml 09/01/20 22:00 09/02/20 09:26 Sodium Chloride 0.9% 10 Ml Flush Syringe IV 10 ml BID GIULIA Administration Sodium Chloride 10 ml 09/01/20 13:37 Sodium Chloride 0.9% 10 Ml Flush Syringe IV PRN PRN LINE FLUSH Sodium Chloride 1 gm 09/01/20 14:00 09/02/20 09:03 Sodium Chloride 1 Gm Tab PO 1 gm BID GIULIA Administration Thiamine HCl 100 mg 09/02/20 10:00 Thiamine 100 Mg Tab PO QDAY GIULIA
--- NOTE | 2020-09-02 12:30 | Cat Scan Report ---
CT chest wo con, CT abdomen pelvis wo con INDICATION: Rule out lung infection. TECHNIQUE: All CT scans at this location are performed using CT dose reduction for ALARA by means of automated e xposure control. COMPARISON: None available. FINDINGS: CT CHEST: No mediastinal, hilar or axillary adenopathy is apparent on this noncontrast exam. Chronic lung disea se, with fairly large bullae in the upper lungs, but no acute pulmonary or pleural disease. CT ABDOMEN: Liver, spleen, pancreas, kidneys and adrenals are grossly negative on this noncontrast study. Gallbla dder is partially collapsed, with no obvious stones. Abdominal aorta is atherosclerotic but normal in size. No adenopathy. CT PELVIS: Urinary bladder and distal ureters are negative. There is fluid-filled bowel in the inferior pelvis, but I do not see significant free fluid. No acute skeletal lesions. IMPRESSION: 1. COPD. No evidence of pneumonia or other acute abnormality in the lungs. 2. No acute abnormalities are demonstrated in the abdomen or pelvis. Signer Name: Caleb Desouza MD Signed: 09/02/2020 12:26 PM Workstation Name: [id number]
[2020-09-02] MEDS: THIAMINE 100 MG TAB PO SCH (17:24)
[2020-09-02] MEDS: SODIUM CHLORIDE 0.9% 1000 ML 1,000 ML IV SCH (17:24)
[2020-09-02] MEDS ORDERED: GABAPENTIN 300 MG CAP PO SCH (18:00)
[2020-09-02] MEDS: ENOXAPARIN 40 MG/0.4 ML INJ SUB-Q SCH (22:05)
[2020-09-02] MEDS: LORazepam 2 MG/ML VIAL IV PRN (22:06)
[2020-09-03] MEDS: SODIUM CHLORIDE 0.9% 1000 ML 1,000 ML IV SCH (06:07)
[2020-09-03] MEDS: THIAMINE 100 MG TAB PO SCH (09:13)
[2020-09-03] MEDS: amLODIPine 10 MG TAB PO SCH (09:13)
[2020-09-03] MEDS ORDERED: THIAMINE 100 MG TAB PO SCH (10:00)
[2020-09-03] MEDS: SODIUM CHLORIDE 1 GM TAB PO SCH (11:02)
--- NOTE | 2020-09-03 11:15 | Discharge Summary ---
Providers - Providers Date of Admission: 09/01/20 04:29 Date of discharge: 09/03/20 Attending physician: DESI CAVAZOS 09/01/20 08:16 psychiatry consult [Consult to Mental Health] [CONS] Routine Reason For Exam: Alcohol abuse with ?suicidal intention 09/02/20 10:15 Physical Therapy Evaluation and Treat [CONS] Stat Comment: Reason For Exam: pending discharge Primary care physician: [facility] Hospitalization Condition: Stable Hospital course: 59 years old male with a medical history of hypertension, alcohol abuse and neuropathy brought to the emergency room via EMS from a local residence. EMS stated that patient is living in a house with approximately 20 other people. EMS stated that patient roommate called EMS stating that he is became more altered recently and confused and he heard him moaning at night. In the ER, patient was alert however he is disoriented in time place and person. Patient was complaining of generalized body aches and was tremulous. Uses alcohol daily and last drink was about 24 hours prior. His labs showed sodium 122, elevated liver function tests. Alcohol level was less than 0.02. Now admitted for acute metabolic encephalopathy 2/2 hyponatremia, possible EtoH. Patient was started on CIWA protocol and monitored on the floors. She subsequently improved. Sodium level also continue to improve. Patient has significant alcohol use and has been advised to cut down alcohol for now. His lactic acid on admission was 5.4 and he received multiple fluid boluses. CT chest and CT abdomen showed no acute pathology. COVID-19 test is negative. His lactic acid at discharge is 1.9. He is alert and oriented x3. He has been seen by physical therapy recommends home PT. He will be discharged home to follow-up with PCP. He agrees with treatment plan. Disposition: [id number] HOME UNDER HOME [facility] Time spent for discharge: 35 mins - Discharge Diagnoses (1) Acute metabolic encephalopathy Status: Acute (2) Hyponatremia Status: Acute (3) Delirium tremens Status: Acute (4) Lactic acidosis Status: Acute Core Measure Documentation - Palliative Care Palliative Care/ Comfort Measures: Not Applicable - Core Measures Any of the following diagnoses?: none Exam - Physical Exam Narrative exam: VITAL SIGNS: Reviewed. GENERAL: Awake HEAD: No signs of head trauma. EYES: Pupils are equal. Extraocular motions intact. MOUTH: Oropharynx is normal. NECK: No adenopathy, no JVD. CHEST: Chest with diminished breath sounds bilaterally. No wheezes, rales, or rhonchi. CARDIAC: normal S1 and S2, without murmurs, gallops, or rubs. ABDOMEN: Soft, non tender and non distended. No rebound or guarding, and no masses palpated. Bowel Sounds normal. MUSCULOSKELETAL: No edema NEUROLOGIC EXAM: Alert and oriented x3. No focal neurologic deficits SKIN: No obvious lesions - Constitutional Vitals: Temp Pulse Resp BP Pulse Ox 98.6 F 78 18 128/77 99 09/03/20 08:38 09/03/20 09:13 09/03/20 08:38 09/03/20 09:13 09/03/20 08:38 Plan Additional Instructions: Continue medication as prescribed. Stop alcohol abuse. Follow-up with PCP in 1 to 2 weeks Follow up with: PRIMARY CAREMD [Primary Care Provider] - 3-5 Days Prescriptions: amLODIPine 10 mg PO QDAY #30 tablet Gabapentin 300 mg PO QPM #30 capsule Sodium Chloride 1 gm PO BID #14 tablet
[2020-09-03 15:11] VITALS: BP 134/86
== END 2020-09-03 15:13 | disposition home health service (06) | DRG 640 ==
LOC: ED 00:47 → 4A 04:29 → 3A 20:05 → 4A 09-02 16:10
PROVIDERS: ADMIT Internal Medicine; ATTEND Internal Medicine
DX: E87.1 Hypo-osmolality and hyponatremia (principal); G93.41 Metabolic encephalopathy; F10.231 Alcohol dependence with withdrawal delirium; E44.0 Moderate protein-calorie malnutrition; E87.2 Acidosis; I10 Essential (primary) hypertension; Z20.822 Contact with and (suspected) exposure to COVID-19; G62.9 Polyneuropathy, unspecified; E86.0 Dehydration
CPT/HCPCS: 36415; 70450; 71045; 71250; 74176; 80048; 80053; 80076; 80307; 80320; 81001; 82140; 82436; 82550; 82962; 83930; 83935; 84300; 84443; 84484; 85025; 85610; 85730; 87040; 93005; 96365; 96366; 96375; 99406; G0378; G0480; J1650; J2060; J2405; J3411; J7030; J7040; J7050; U0003

== ENCOUNTER 2020-11-11 14:26 | Inpatient (IN) | payer OTHER, SELFPAY ==
[2020-11-11 15:37] LABS: Basophils # (Auto) 0.1 K/mm3 (0.0-0.1); Basophils % (Auto) 0.8 % (0.0-1.8); Eosinophils % (Auto) 0.7 % (0.0-4.3); Hematocrit 30.9 % (35.5-45.6); Lymphocytes # (Auto) 0.7 K/mm3 (1.2-5.4); Lymphocytes % (Auto) 10.3 % (13.4-35.0); Mean Corpuscular HGB Conc 36 % (32-34); Mean Corpuscular Volume 100 fl (84-94); Monocytes # (Auto) 0.5 K/mm3 (0.0-0.8); Monocytes % (Auto) 7.4 % (0.0-7.3); Platelet Count 271 K/mm3 (140-440); Red Blood Count 3.09 M/mm3 (3.65-5.03); Red Cell Distribution Width 13.5 % (13.2-15.2)
[2020-11-11 15:39] LABS: Blood Urea Nitrogen 3 mg/dL (9-20); Calcium 8.6 mg/dL (8.4-10.2); Hemolysis Index 8
[2020-11-11 15:55] LABS: BUN/Creatinine Ratio 5
--- NOTE | 2020-11-11 20:17 | XRay Report ---
CHEST 1 VIEW INDICATION / CLINICAL INFORMATION: Altered Mental Status. COMPARISON: 09/29/2020 FINDINGS: SUPPORT DEVICES: None. HEART / MEDIASTINUM: No significant abnormality. LUNGS / PLEURA: No significant pulmonary or pleural abnormality. No pneumothorax. ADDITIONAL FINDINGS: No significant additional findings. IMPRESSION: No acute disease or interval change from 09/01/2020 Signer Name: Deo Reeves MD FACR Signed: 11/11/2020 8:13 PM Workstation Name: [id number]
--- NOTE | 2020-11-11 20:37 | Emergency Department Report ---
ED General Adult HPI - General Chief complaint: Altered Mental Status Stated complaint: POSSIBLE AMS Time Seen by Provider: 11/11/20 19:34 Source: EMS Mode of arrival: Ambulatory Limitations: No Limitations - History of Present Illness Initial comments: The patient presents to the emergency department with a chief complaint of not feeling well. Patient states that she has a felt strange and states his mind is wondering. He states he is confused. Patient cannot tell me his address but cannot tell me his date of . He does describe a dull headache that is diffuse in nature. He denies any chest pain, shortness of breath, or abdominal pain. Per the records the patient was wandering through the neighborhood knocking on doors. He was dropped off at the police station by helpful neighbor and upon arriving to the police station EMS was called. -: days(s) (1) Location: head Severity scale (0 -10): 2 Quality: other (Throbbing) Consistency: constant Improves with: none Worsens with: none Associated Symptoms: denies other symptoms Treatments Prior to Arrival: none - Related Data Home Medications Medication Instructions Recorded Confirmed Last Taken Catapres 10 mg PO DAILY 09/02/20 09/02/20 Unknown Gabapentin 300 mg PO BID 09/02/20 09/02/20 Unknown Previous Rx's Medication Instructions Recorded Last Taken Type Gabapentin 300 mg PO QPM #30 capsule 09/03/20 Unknown Rx Sodium Chloride 1 gm PO BID #14 tablet 09/03/20 Unknown Rx amLODIPine 10 mg PO QDAY #30 tablet 09/03/20 Unknown Rx Allergies Allergy/AdvReac Type Severity Reaction Status Date / Time lisinopril Allergy Angioedema Verified 09/01/20 02:24 ED Review of Systems ROS: Stated complaint: POSSIBLE AMS Other details as noted in HPI Comment: All other systems reviewed and negative Constitutional: denies: chills, fever Eyes: denies: eye pain, eye discharge, vision change ENT: denies: ear pain, throat pain Respiratory: shortness of breath. denies: cough, wheezing Cardiovascular: denies: chest pain, palpitations Endocrine: no symptoms reported Gastrointestinal: denies: abdominal pain, nausea, diarrhea Genitourinary: denies: urgency, dysuria Musculoskeletal: denies: back pain, joint swelling, arthralgia Skin: denies: rash, lesions Neurological: denies: headache, weakness, paresthesias Psychiatric: denies: anxiety, depression Hematological/Lymphatic: denies: easy bleeding, easy bruising ED Past Medical Hx - Past Medical History Previous Medical History?: Yes Hx Hypertension: Yes Hx Congestive Heart Failure: No Hx Diabetes: No Hx Asthma: No Hx COPD: No Additional medical history: nerve damage, pancreatitis - Social History Smoking Status: Unknown if ever smoked - Medications Home Medications: Home Medications Medication Instructions Recorded Confirmed Last Taken Type Catapres 10 mg PO DAILY 09/02/20 09/02/20 Unknown History Gabapentin 300 mg PO BID 09/02/20 09/02/20 Unknown History Gabapentin 300 mg PO QPM #30 capsule 09/03/20 Unknown Rx Sodium Chloride 1 gm PO BID #14 tablet 09/03/20 Unknown Rx amLODIPine 10 mg PO QDAY #30 tablet 09/03/20 Unknown Rx ED Physical Exam - General Limitations: No Limitations General appearance: alert, in no apparent distress - Head Head exam: Present: atraumatic, normocephalic - Eye Eye exam: Present: normal appearance, PERRL, EOMI - ENT ENT exam: Present: mucous membranes moist - Neck Neck exam: Present: normal inspection - Respiratory Respiratory exam: Present: normal lung sounds bilaterally, wheezes. Absent: respiratory distress - Cardiovascular Cardiovascular Exam: Present: regular rate, normal rhythm. Absent: systolic murmur, diastolic murmur, rubs, gallop - GI/Abdominal GI/Abdominal exam: Present: soft, normal bowel sounds. Absent: distended, tenderness - Rectal Rectal exam: Present: deferred - Extremities Exam Extremities exam: Present: normal inspection - Back Exam Back exam: Present: normal inspection - Neurological Exam Neurological exam: Present: alert, CN II-XII intact, other (Alert but not oriented to place or time). Absent: motor sensory deficit - Psychiatric Psychiatric exam: Present: normal affect, normal mood - Skin Skin exam: Present: warm, dry, intact, normal color. Absent: rash ED Course Vital Signs 11/11/20 11/11/20 11/11/20 14:43 18:02 20:15 Temperature 98.2 F Pulse Rate 79 Respiratory 12 Rate Blood Pressure 178/103 176/106 176/106 Blood Pressure 178/103 [Right] O2 Sat by Pulse 100 100 74 L Oximetry 11/11/20 11/11/20 11/11/20 21:00 21:56 22:00 Temperature Pulse Rate 72 Respiratory 14 18 Rate Blood Pressure 147/95 155/83 Blood Pressure [Right] O2 Sat by Pulse 98 97 Oximetry 11/11/20 23:00 Temperature Pulse Rate Respiratory Rate Blood Pressure 160/76 Blood Pressure [Right] O2 Sat by Pulse 98 Oximetry ED Medical Decision Making - Lab Data Result diagrams: 11/11/20 15:07 11/11/20 20:06 Lab Results 11/11/20 11/11/20 11/11/20 Range/Units 15:07 15:07 20:06 WBC 6.6 (4.5-11.0) K/mm3 RBC 3.09 L (3.65-5.03) M/mm3 Hgb 11.0 L (11.8-15.2) gm/dl Hct 30.9 L (35.5-45.6) % MCV 100 H (84-94) fl MCH 36 H (28-32) pg MCHC 36 H (32-34) % RDW 13.5 (13.2-15.2) % Plt Count 271 (140-440) K/mm3 Lymph % (Auto) 10.3 L (13.4-35.0) % [place] % (Auto) 7.4 H (0.0-7.3) % Eos % (Auto) 0.7 (0.0-4.3) % Baso % (Auto) 0.8 (0.0-1.8) % Lymph # (Auto) 0.7 L (1.2-5.4) K/mm3 [place] # (Auto) 0.5 (0.0-0.8) K/mm3 Eos # (Auto) 0.0 (0.0-0.4) K/mm3 Baso # (Auto) 0.1 (0.0-0.1) K/mm3 Seg Neutrophils % 80.8 H (40.0-70.0) % Seg Neutrophils # 5.3 (1.8-7.7) K/mm3 PT (12.2-14.9) Sec. INR (0.87-1.13) APTT (24.2-36.6) Sec. Sodium 125 L (137-145) mmol/L Potassium 3.9 (3.6-5.0) mmol/L Chloride 92.9 L (98-107) mmol/L Carbon Dioxide 17 L (22-30) mmol/L Anion Gap 19 mmol/L BUN 3 L (9-20) mg/dL Creatinine 0.6 L (0.8-1.3) mg/dL Estimated GFR > 60 ml/min BUN/Creatinine Ratio 5 % Glucose 94 (75-100) mg/dL Lactic Acid 1.00 (0.7-2.0) mmol/L Calcium 8.6 (8.4-10.2) mg/dL Total Bilirubin (0.1-1.2) mg/dL AST (5-40) units/L ALT (7-56) units/L Alkaline Phosphatase (35-129) units/L Ammonia (25-60) umol/L Total Creatine Kinase (55-170) units/L Troponin T (0.00-0.029) ng/mL Total Protein (6.3-8.2) g/dL Albumin (3.9-5) g/dL Albumin/Globulin Ratio % TSH (0.270-4.200) mlU/mL Urine Color (Yellow) Urine Turbidity (Clear) Urine pH (5.0-7.0) Ur Specific [place] (1.003-1.030) Urine Protein (Negative) mg/dL Urine Glucose (UA) (Negative) mg/dL Urine Ketones (Negative) mg/dL Urine Blood (Negative) Urine Nitrite (Negative) Urine Bilirubin (Negative) Urine Urobilinogen (<2.0) mg/dL Ur Leukocyte Esterase (Negative) Urine WBC (Auto) (0.0-6.0) /HPF Urine RBC (Auto) (0.0-6.0) /HPF Urine Mucus /HPF Salicylates (2.8-20.0) mg/dL Acetaminophen (10.0-30.0) ug/mL Plasma/Serum Alcohol (0-0.07) % 11/11/20 11/11/20 11/11/20 Range/Units 20:06 20:06 20:06 WBC (4.5-11.0) K/mm3 RBC (3.65-5.03) M/mm3 Hgb (11.8-15.2) gm/dl Hct (35.5-45.6) % MCV (84-94) fl MCH (28-32) pg MCHC (32-34) % RDW (13.2-15.2) % Plt Count (140-440) K/mm3 Lymph % (Auto) (13.4-35.0) % [place] % (Auto) (0.0-7.3) % Eos % (Auto) (0.0-4.3) % Baso % (Auto) (0.0-1.8) % Lymph # (Auto) (1.2-5.4) K/mm3 [place] # (Auto) (0.0-0.8) K/mm3 Eos # (Auto) (0.0-0.4) K/mm3 Baso # (Auto) (0.0-0.1) K/mm3 Seg Neutrophils % (40.0-70.0) % Seg Neutrophils # (1.8-7.7) K/mm3 PT 12.7 (12.2-14.9) Sec. INR 0.96 (0.87-1.13) APTT 30.5 (24.2-36.6) Sec. Sodium 125 L (137-145) mmol/L Potassium 3.8 (3.6-5.0) mmol/L Chloride 93.9 L (98-107) mmol/L Carbon Dioxide 20 L (22-30) mmol/L Anion Gap 15 mmol/L BUN 4 L (9-20) mg/dL Creatinine 0.6 L (0.8-1.3) mg/dL Estimated GFR > 60 ml/min BUN/Creatinine Ratio 7 % Glucose 102 H (75-100) mg/dL Lactic Acid (0.7-2.0) mmol/L Calcium 8.4 (8.4-10.2) mg/dL Total Bilirubin 0.30 (0.1-1.2) mg/dL AST 29 (5-40) units/L ALT 27 (7-56) units/L Alkaline Phosphatase 85 (35-129) units/L Ammonia 38.0 (25-60) umol/L Total Creatine Kinase 141 (55-170) units/L Troponin T < 0.010 (0.00-0.029) ng/mL Total Protein 6.1 L (6.3-8.2) g/dL Albumin 3.9 (3.9-5) g/dL Albumin/Globulin Ratio 1.8 % TSH (0.270-4.200) mlU/mL Urine Color (Yellow) Urine Turbidity (Clear) Urine pH (5.0-7.0) Ur Specific [place] (1.003-1.030) Urine Protein (Negative) mg/dL Urine Glucose (UA) (Negative) mg/dL Urine Ketones (Negative) mg/dL Urine Blood (Negative) Urine Nitrite (Negative) Urine Bilirubin (Negative) Urine Urobilinogen (<2.0) mg/dL Ur Leukocyte Esterase (Negative) Urine WBC (Auto) (0.0-6.0) /HPF Urine RBC (Auto) (0.0-6.0) /HPF Urine Mucus /HPF Salicylates (2.8-20.0) mg/dL Acetaminophen (10.0-30.0) ug/mL Plasma/Serum Alcohol (0-0.07) % 11/11/20 11/11/20 11/11/20 Range/Units 20:06 20:06 20:06 WBC (4.5-11.0) K/mm3 RBC (3.65-5.03) M/mm3 Hgb (11.8-15.2) gm/dl Hct (35.5-45.6) % MCV (84-94) fl MCH (28-32) pg MCHC (32-34) % RDW (13.2-15.2) % Plt Count (140-440) K/mm3 Lymph % (Auto) (13.4-35.0) % [place] % (Auto) (0.0-7.3) % Eos % (Auto) (0.0-4.3) % Baso % (Auto) (0.0-1.8) % Lymph # (Auto) (1.2-5.4) K/mm3 [place] # (Auto) (0.0-0.8) K/mm3 Eos # (Auto) (0.0-0.4) K/mm3 Baso # (Auto) (0.0-0.1) K/mm3 Seg Neutrophils % (40.0-70.0) % Seg Neutrophils # (1.8-7.7) K/mm3 PT (12.2-14.9) Sec. INR (0.87-1.13) APTT (24.2-36.6) Sec. Sodium (137-145) mmol/L Potassium (3.6-5.0) mmol/L Chloride (98-107) mmol/L Carbon Dioxide (22-30) mmol/L Anion Gap mmol/L BUN (9-20) mg/dL Creatinine (0.8-1.3) mg/dL Estimated GFR ml/min BUN/Creatinine Ratio % Glucose (75-100) mg/dL Lactic Acid (0.7-2.0) mmol/L Calcium (8.4-10.2) mg/dL Total Bilirubin (0.1-1.2) mg/dL AST (5-40) units/L ALT (7-56) units/L Alkaline Phosphatase (35-129) units/L Ammonia (25-60) umol/L Total Creatine Kinase (55-170) units/L Troponin T (0.00-0.029) ng/mL Total Protein (6.3-8.2) g/dL Albumin (3.9-5) g/dL Albumin/Globulin Ratio % TSH 1.670 (0.270-4.200) mlU/mL Urine Color (Yellow) Urine Turbidity (Clear) Urine pH (5.0-7.0) Ur Specific [place] (1.003-1.030) Urine Protein (Negative) mg/dL Urine Glucose (UA) (Negative) mg/dL Urine Ketones (Negative) mg/dL Urine Blood (Negative) Urine Nitrite (Negative) Urine Bilirubin (Negative) Urine Urobilinogen (<2.0) mg/dL Ur Leukocyte Esterase (Negative) Urine WBC (Auto) (0.0-6.0) /HPF Urine RBC (Auto) (0.0-6.0) /HPF Urine Mucus /HPF Salicylates < 0.3 L (2.8-20.0) mg/dL Acetaminophen 5.0 L (10.0-30.0) ug/mL Plasma/Serum Alcohol (0-0.07) % 11/11/20 11/12/20 Range/Units 20:06 01:12 WBC (4.5-11.0) K/mm3 RBC (3.65-5.03) M/mm3 Hgb (11.8-15.2) gm/dl Hct (35.5-45.6) % MCV (84-94) fl MCH (28-32) pg MCHC (32-34) % RDW (13.2-15.2) % Plt Count (140-440) K/mm3 Lymph % (Auto) (13.4-35.0) % [place] % (Auto) (0.0-7.3) % Eos % (Auto) (0.0-4.3) % Baso % (Auto) (0.0-1.8) % Lymph # (Auto) (1.2-5.4) K/mm3 [place] # (Auto) (0.0-0.8) K/mm3 Eos # (Auto) (0.0-0.4) K/mm3 Baso # (Auto) (0.0-0.1) K/mm3 Seg Neutrophils % (40.0-70.0) % Seg Neutrophils # (1.8-7.7) K/mm3 PT (12.2-14.9) Sec. INR (0.87-1.13) APTT (24.2-36.6) Sec. Sodium (137-145) mmol/L Potassium (3.6-5.0) mmol/L Chloride (98-107) mmol/L Carbon Dioxide (22-30) mmol/L Anion Gap mmol/L BUN (9-20) mg/dL Creatinine (0.8-1.3) mg/dL Estimated GFR ml/min BUN/Creatinine Ratio % Glucose (75-100) mg/dL Lactic Acid (0.7-2.0) mmol/L Calcium (8.4-10.2) mg/dL Total Bilirubin (0.1-1.2) mg/dL AST (5-40) units/L ALT (7-56) units/L Alkaline Phosphatase (35-129) units/L Ammonia (25-60) umol/L Total Creatine Kinase (55-170) units/L Troponin T (0.00-0.029) ng/mL Total Protein (6.3-8.2) g/dL Albumin (3.9-5) g/dL Albumin/Globulin Ratio % TSH (0.270-4.200) mlU/mL Urine Color Yellow (Yellow) Urine Turbidity Clear (Clear) Urine pH 5.0 (5.0-7.0) Ur Specific [place] 1.012 (1.003-1.030) Urine Protein <15 mg/dl (Negative) mg/dL Urine Glucose (UA) Neg (Negative) mg/dL Urine Ketones Neg (Negative) mg/dL Urine Blood Neg (Negative) Urine Nitrite Neg (Negative) Urine Bilirubin Neg (Negative) Urine Urobilinogen < 2.0 (<2.0) mg/dL Ur Leukocyte Esterase Neg (Negative) Urine WBC (Auto) 1.0 (0.0-6.0) /HPF Urine RBC (Auto) 1.0 (0.0-6.0) /HPF Urine Mucus Few /HPF Salicylates (2.8-20.0) mg/dL Acetaminophen (10.0-30.0) ug/mL Plasma/Serum Alcohol < 0.01 (0-0.07) % - EKG Data -: EKG Interpreted by Me EKG shows normal: sinus rhythm Rate: normal - Radiology Data Radiology results: report reviewed - Medical Decision Making Laboratory values and imaging reviewed Critical care attestation.: If time is entered above; I have spent that time in minutes in the direct care of this critically ill patient, excluding procedure time. ED Disposition Clinical Impression: Altered mental status, Hyponatremia Disposition: OP ADMIT IP TO THIS HOSP Is pt being admited?: Yes Does the pt Need Aspirin: Yes Condition: Fair Referrals: PRIMARY CARE,MD [Primary Care Provider] - 3-5 Days
[2020-11-11 20:40] LABS: INR 0.96 (0.87-1.13)
[2020-11-11 20:41] LABS: Partial Thromboplastin Time 30.5 Sec. (24.2-36.6)
[2020-11-11 20:48] LABS: Alanine Aminotransferase 27 units/L (7-56); Albumin 3.9 g/dL (3.9-5); Blood Urea Nitrogen 4 mg/dL (9-20); Calcium 8.4 mg/dL (8.4-10.2); Hemolysis Index 8
[2020-11-11 21:21] LABS: BUN/Creatinine Ratio 7
--- NOTE | 2020-11-11 21:27 | Cat Scan Report ---
. CT head/brain wo con INDICATION / CLINICAL INFORMATION: 59 years Male; Altered Mental Status. TECHNIQUE: Routine CT head without contrast. All CT scans at this location are performed using CT dos e reduction for ALARA by means of automated exposure control. COMPARISON: 09/01/2020 FINDINGS: BRAIN / INTRACRANIAL CONTENTS: No acute hemorrhage, mass effect, midline shift, hydrocephalus, or acu te, large territorial infarct. Mild, diffuse cerebral and cerebellar atrophy. There are moderate areas of decreased attenuation in the white matter of the cerebral hemispheres, as well as the gangliocapsular regions. These are nonspecific findings and may be related to microangio cahs (hypertension, diabetes, atherosclerosis), given the patient's age. It might be difficult to ev aluate for small areas of ischemia without diffusion imaging by MRI. CRANIOCERVICAL JUNCTION: No significant abnormality. ORBITS: No significant abnormality of visualized orbits. SINUSES / MASTOIDS: Visualized paranasal sinuses and mastoid air cells are essentially clear. ADDITIONAL FINDINGS: Atherosclerotic disease is seen in the anterior and posterior circulation. IMPRESSION: 1. No focal mass, hemorrhage, hydrocephalus, or acute, large territorial infarct. Signer Name: Jett Najera MD, III Signed: 11/11/2020 9:22 PM Workstation Name: [facility] CENTERPassport SystemsREHABILITATION HOSPITAL OF [id number]
[2020-11-12 02:05] LABS: Bilirubin,Urine NEG (Negative); Blood,Urine NEG (Negative); Color,Urine Yellow (Yellow); Mucus,Urine FEW /HPF; Protein,Urine <15 mg/dL mg/dL (Negative); Urobilinogen,Urine < 2.0 mg/dL (<2.0)
[2020-11-12] MEDS ORDERED: ONDANSETRON 4 MG/2 ML INJ IV PRN (02:41)
[2020-11-12] MEDS ORDERED: ASPIRIN 81 MG TAB CHEW PO ONE (02:43)
[2020-11-12] MEDS ORDERED: D5W/0.9% NACL 1,000 ML IV SCH (03:00)
--- NOTE | 2020-11-12 03:16 | History and Physical Report ---
History of Present Illness Date of examination: 11/12/20 Date of admission: 11/12/2020 Chief complaint: AMS History of present illness: 59-year-old -Nigerian male who is an ongoing smoker, newly diagnosed with depression with with history of EtOH abuse, hypertension, and neuropathy who presents to [facility] ED via EMS with complaints of altered mental status. At the time of examination patient is unable to provide details of transfer or arrival to ED. Patient reports waking up and realizing that he was in the hospital and unsure as to how he got there. Patient states that he "does not feel well " and feels "strange". Endorses mild dull generalized headache. Per EMS report patient was wandering through the neighborhood knocking on doors. He was drop ped off at the local police station by vidya Denise. Upon arriving to the police station EMS was called, and he was transported to our facility for further evaluation and management. Endorses recent unintentional weight loss Denies n/v/d, fever, chills, cough, SOB, CP, palpitations, recent injury/trauma, recent fall, illicit drug use, prescription drug abuse, or recent sick contacts Review of medical record shows patient was admitted in August of this year after roommate called EMS for noted altered mental status. Patient was also found to be hyponatremic and discharged on oral sodium chloride tablets. It is unsure whether or not patient was compliant with medication. Additionally patient states he was diagnosed with depression proximately 1 month ago and was given antidepressant meds. He does not recall the name of the bed nor does he confirm compliance. Past History Past Medical History: hypertension, other (EtOH abuse, current smoker, neuropathy, newly diagnosed with depression) Past Surgical History: Other (Denies surgical history) Social history: single (Lives and boardinghouse with several roommates), smoking (Every day smoker), alcohol abuse (3-4 large cans of beer daily last drink 11/11/2020). denies: prescription drug abuse, IV drug use Family history: no significant family history Medications and Allergies Allergies Allergy/AdvReac Type Severity Reaction Status Date / Time lisinopril Allergy Angioedema Verified 09/01/20 02:24 Home Medications Medication Instructions Recorded Confirmed Last Taken Type Catapres 10 mg PO DAILY 09/02/20 09/02/20 Unknown History Gabapentin 300 mg PO BID 09/02/20 09/02/20 Unknown History Gabapentin 300 mg PO QPM #30 capsule 09/03/20 Unknown Rx Sodium Chloride 1 gm PO BID #14 tablet 09/03/20 Unknown Rx amLODIPine 10 mg PO QDAY #30 tablet 09/03/20 Unknown Rx Active Meds: Active Medications Acetaminophen (Acetaminophen 325 Mg Tab) 650 mg PO Q4H PRN PRN Reason: Pain MILD(1-3)/Fever >100.5/ALMENDAREZ Amlodipine Besylate (Amlodipine 10 Mg Tab) 10 mg PO QDAY GIULIA Docusate Sodium (Docusate Sodium 100 Mg Cap) 100 mg PO BID GIULIA Heparin Sodium (Porcine) (Heparin 5,000 Unit/1 Ml Vial) 5,000 unit SUB-Q Q12HR GIULIA Dextrose/Sodium Chloride (D5ns) 1,000 mls @ 100 mls/hr IV DIRECT GIULIA Stop: 11/12/20 12:00 Lorazepam (Lorazepam 2 Mg/Ml Vial) 2 mg IV Q1H PRN PRN Reason: CIWA-Ar 8-15 Nicotine (Nicotine 14 Mg/24 Hr Patch) 14 mg TD QDAY GIULIA Ondansetron HCl (Ondansetron 4 Mg/2 Ml Inj) 4 mg IV Q8H PRN PRN Reason: Nausea And Vomiting Sodium Chloride (Sodium Chloride 0.9% 10 Ml Flush Syringe) 10 ml IV BID GIULIA Sodium Chloride (Sodium Chloride 0.9% 10 Ml Flush Syringe) 10 ml IV PRN PRN PRN Reason: LINE FLUSH Review of Systems All systems: negative (As noted in HPI) Exam - Physical Exam Narrative exam: Physical exam General appearance: Present: No acute distress, alert and oriented 2, thin, adult -Nigerian male - EENT Eyes: Present: PERRL, EOM intact ENT: hearing intact, normal dentition - Neck Neck: Present: supple, normal ROM - Respiratory Respiratory effort: Non-labored Respiratory: Clear throughout - Cardiovascular Heart rate: 89 (bpm) Rhythm: Sinus Heart Sounds: Present: S1 & S2. Absent: rub, click - Extremities Extremities: no ischemia, pulses intact, - Peripheral Assessment Peripheral Pulses: within normal limits - Abdominal General gastrointestinal: soft, non-tender, normal bowel sounds - Integumentary Integumentary: Present: warm, dry - Musculoskeletal Musculoskeletal: Able to move all extremities -Neurological Neurological: CN II-XII intact - Psychiatric Psychiatric: cooperative - Constitutional Vitals: Temp Pulse Resp BP Pulse Ox 98.2 F 72 18 158/89 100 11/11/20 14:43 11/11/20 21:00 11/11/20 21:56 11/12/20 02:11 11/12/20 02:11 HEART Score - HEART Score Troponin: WBC 6.6 K/mm3 (4.5-11.0) 11/11/20 15:07 RBC 3.09 M/mm3 (3.65-5.03) L 11/11/20 15:07 Hgb 11.0 gm/dl (11.8-15.2) L 11/11/20 15:07 Hct 30.9 % (35.5-45.6) L 11/11/20 15:07 MCV 100 fl (84-94) H 11/11/20 15:07 MCH 36 pg (28-32) H 11/11/20 15:07 MCHC 36 % (32-34) H 11/11/20 15:07 RDW 13.5 % (13.2-15.2) 11/11/20 15:07 Plt Count 271 K/mm3 (140-440) 11/11/20 15:07 Lymph % (Auto) 10.3 % (13.4-35.0) L 11/11/20 15:07 Long % (Auto) 7.4 % (0.0-7.3) H 11/11/20 15:07 Eos % (Auto) 0.7 % (0.0-4.3) 11/11/20 15:07 Baso % (Auto) 0.8 % (0.0-1.8) 11/11/20 15:07 Lymph # (Auto) 0.7 K/mm3 (1.2-5.4) L 11/11/20 15:07 Long # (Auto) 0.5 K/mm3 (0.0-0.8) 11/11/20 15:07 Eos # (Auto) 0.0 K/mm3 (0.0-0.4) 11/11/20 15:07 Baso # (Auto) 0.1 K/mm3 (0.0-0.1) 11/11/20 15:07 Seg Neutrophils % 80.8 % (40.0-70.0) H 11/11/20 15:07 Seg Neutrophils # 5.3 K/mm3 (1.8-7.7) 11/11/20 15:07 PT 12.7 Sec. (12.2-14.9) 11/11/20 20:06 INR 0.96 (0.87-1.13) 11/11/20 20:06 APTT 30.5 Sec. (24.2-36.6) 11/11/20 20:06 Sodium 125 mmol/L (137-145) L 11/11/20 20:06 Potassium 3.8 mmol/L (3.6-5.0) 11/11/20 20:06 Chloride 93.9 mmol/L (98-107) L 11/11/20 20:06 Carbon Dioxide 20 mmol/L (22-30) L 11/11/20 20:06 Anion Gap 15 mmol/L 11/11/20 20:06 BUN 4 mg/dL (9-20) L 11/11/20 20:06 Creatinine 0.6 mg/dL (0.8-1.3) L 11/11/20 20:06 Estimated GFR > 60 ml/min 11/11/20 20:06 BUN/Creatinine Ratio 7 % 11/11/20 20:06 Glucose 102 mg/dL (75-100) H 11/11/20 20:06 Lactic Acid 1.00 mmol/L (0.7-2.0) 11/11/20 20:06 Calcium 8.4 mg/dL (8.4-10.2) 11/11/20 20:06 Total Bilirubin 0.30 mg/dL (0.1-1.2) 11/11/20 20:06 AST 29 units/L (5-40) 11/11/20 20:06 ALT 27 units/L (7-56) 11/11/20 20:06 Alkaline Phosphatase 85 units/L (35-129) 11/11/20 20:06 Ammonia 38.0 umol/L (25-60) 11/11/20 20:06 Total Creatine Kinase 141 units/L (55-170) 11/11/20 20:06 Troponin T < 0.010 ng/mL (0.00-0.029) 11/11/20 20:06 Total Protein 6.1 g/dL (6.3-8.2) L 11/11/20 20:06 Albumin 3.9 g/dL (3.9-5) 11/11/20 20:06 Albumin/Globulin Ratio 1.8 % 11/11/20 20:06 TSH 1.670 mlU/mL (0.270-4.200) 11/11/20 20:06 Urine Color Yellow (Yellow) 11/12/20 01:12 Urine Turbidity Clear (Clear) 11/12/20 01:12 Urine pH 5.0 (5.0-7.0) 11/12/20 01:12 Ur Specific [place] 1.012 (1.003-1.030) 11/12/20 01:12 Urine Protein <15 mg/dl mg/dL (Negative) 11/12/20 01:12 Urine Glucose (UA) Neg mg/dL (Negative) 11/12/20 01:12 Urine Ketones Neg mg/dL (Negative) 11/12/20 01:12 Urine Blood Neg (Negative) 11/12/20 01:12 Urine Nitrite Neg (Negative) 11/12/20 01:12 Urine Bilirubin Neg (Negative) 11/12/20 01:12 Urine Urobilinogen < 2.0 mg/dL (<2.0) 11/12/20 01:12 Ur Leukocyte Esterase Neg (Negative) 11/12/20 01:12 Urine WBC (Auto) 1.0 /HPF (0.0-6.0) 11/12/20 01:12 Urine RBC (Auto) 1.0 /HPF (0.0-6.0) 11/12/20 01:12 Urine Mucus Few /HPF 11/12/20 01:12 Salicylates < 0.3 mg/dL (2.8-20.0) L 11/11/20 20:06 Acetaminophen 5.0 ug/mL (10.0-30.0) L 11/11/20 20:06 Plasma/Serum Alcohol < 0.01 % (0-0.07) 11/11/20 20:06 Results - Labs CBC & Chem 7: 11/11/20 15:07 11/11/20 20:06 Labs: Laboratory Last Values WBC 6.6 K/mm3 (4.5-11.0) 11/11/20 15:07 RBC 3.09 M/mm3 (3.65-5.03) L 11/11/20 15:07 Hgb 11.0 gm/dl (11.8-15.2) L 11/11/20 15:07 Hct 30.9 % (35.5-45.6) L 11/11/20 15:07 MCV 100 fl (84-94) H 11/11/20 15:07 MCH 36 pg (28-32) H 11/11/20 15:07 MCHC 36 % (32-34) H 11/11/20 15:07 RDW 13.5 % (13.2-15.2) 11/11/20 15:07 Plt Count 271 K/mm3 (140-440) 11/11/20 15:07 Lymph % (Auto) 10.3 % (13.4-35.0) L 11/11/20 15:07 Long % (Auto) 7.4 % (0.0-7.3) H 11/11/20 15:07 Eos % (Auto) 0.7 % (0.0-4.3) 11/11/20 15:07 Baso % (Auto) 0.8 % (0.0-1.8) 11/11/20 15:07 Lymph # (Auto) 0.7 K/mm3 (1.2-5.4) L 11/11/20 15:07 Long # (Auto) 0.5 K/mm3 (0.0-0.8) 11/11/20 15:07 Eos # (Auto) 0.0 K/mm3 (0.0-0.4) 11/11/20 15:07 Baso # (Auto) 0.1 K/mm3 (0.0-0.1) 11/11/20 15:07 Seg Neutrophils % 80.8 % (40.0-70.0) H 11/11/20 15:07 Seg Neutrophils # 5.3 K/mm3 (1.8-7.7) 11/11/20 15:07 PT 12.7 Sec. (12.2-14.9) 11/11/20 20:06 INR 0.96 (0.87-1.13) 11/11/20 20:06 APTT 30.5 Sec. (24.2-36.6) 11/11/20 20:06 Sodium 125 mmol/L (137-145) L 11/11/20 20:06 Potassium 3.8 mmol/L (3.6-5.0) 11/11/20 20:06 Chloride 93.9 mmol/L (98-107) L 11/11/20 20:06 Carbon Dioxide 20 mmol/L (22-30) L 11/11/20 20:06 Anion Gap 15 mmol/L 11/11/20 20:06 BUN 4 mg/dL (9-20) L 11/11/20 20:06 Creatinine 0.6 mg/dL (0.8-1.3) L 11/11/20 20:06 Estimated GFR > 60 ml/min 11/11/20 20:06 BUN/Creatinine Ratio 7 % 11/11/20 20:06 Glucose 102 mg/dL (75-100) H 11/11/20 20:06 Lactic Acid 1.00 mmol/L (0.7-2.0) 11/11/20 20:06 Calcium 8.4 mg/dL (8.4-10.2) 11/11/20 20:06 Total Bilirubin 0.30 mg/dL (0.1-1.2) 11/11/20 20:06 AST 29 units/L (5-40) 11/11/20 20:06 ALT 27 units/L (7-56) 11/11/20 20:06 Alkaline Phosphatase 85 units/L (35-129) 11/11/20 20:06 Ammonia 38.0 umol/L (25-60) 11/11/20 20:06 Total Creatine Kinase 141 units/L (55-170) 11/11/20 20:06 Troponin T < 0.010 ng/mL (0.00-0.029) 11/11/20 20:06 Total Protein 6.1 g/dL (6.3-8.2) L 11/11/20 20:06 Albumin 3.9 g/dL (3.9-5) 11/11/20 20:06 Albumin/Globulin Ratio 1.8 % 11/11/20 20:06 TSH 1.670 mlU/mL (0.270-4.200) 11/11/20 20:06 Urine Color Yellow (Yellow) 11/12/20 01:12 Urine Turbidity Clear (Clear) 11/12/20 01:12 Urine pH 5.0 (5.0-7.0) 11/12/20 01:12 Ur Specific [place] 1.012 (1.003-1.030) 11/12/20 01:12 Urine Protein <15 mg/dl mg/dL (Negative) 11/12/20 01:12 Urine Glucose (UA) Neg mg/dL (Negative) 11/12/20 01:12 Urine Ketones Neg mg/dL (Negative) 11/12/20 01:12 Urine Blood Neg (Negative) 11/12/20 01:12 Urine Nitrite Neg (Negative) 11/12/20 01:12 Urine Bilirubin Neg (Negative) 11/12/20 01:12 Urine Urobilinogen < 2.0 mg/dL (<2.0) 11/12/20 01:12 Ur Leukocyte Esterase Neg (Negative) 11/12/20 01:12 Urine WBC (Auto) 1.0 /HPF (0.0-6.0) 11/12/20 01:12 Urine RBC (Auto) 1.0 /HPF (0.0-6.0) 11/12/20 01:12 Urine Mucus Few /HPF 11/12/20 01:12 Salicylates < 0.3 mg/dL (2.8-20.0) L 11/11/20 20:06 Acetaminophen 5.0 ug/mL (10.0-30.0) L 11/11/20 20:06 Plasma/Serum Alcohol < 0.01 % (0-0.07) 11/11/20 20:06 Microbiology: Microbiology 11/11/20 20:06 Peripheral/Venous Blood Culture - Preliminary Culture in Progress 11/11/20 20:13 Peripheral/Venous Blood Culture - Preliminary Culture in Progress - Diagnostic Impressions Diagnostic Impressions: CT Head: INDICATION / CLINICAL INFORMATION: 59 years Male; Altered Mental Status. TECHNIQUE: Routine CT head without contrast. All CT scans at this location are performed using CT dose reduction for ALARA by means of automated exposure control. COMPARISON: 09/01/2020 FINDINGS: BRAIN / INTRACRANIAL CONTENTS: No acute hemorrhage, mass effect, midline shift, hydrocephalus, or acute, large territorial infarct. Mild, diffuse cerebral and cerebellar atrophy. There are moderate areas of decreased attenuation in the white matter of the cerebral hemispheres, as well as the gangliocapsular regions. These are nonspecific findings and may be related to microangiopathy (hypertension, diabetes, atherosclerosis), given the patient's age. It might be difficult to evaluate for small areas of ischemia without diffusion imaging by MRI. CRANIOCERVICAL JUNCTION: No significant abnormality. ORBITS: No significant abnormality of visualized orbits. SINUSES / MASTOIDS: Visualized paranasal sinuses and mastoid air cells are essentially clear. ADDITIONAL FINDINGS: Atherosclerotic disease is seen in the anterior and posterior circulation. IMPRESSION: 1. No focal mass, hemorrhage, hydrocephalus, or acute, large territorial infarct. CXR: FINDINGS: SUPPORT DEVICES: None. HEART / MEDIASTINUM: No significant abnormality. LUNGS / PLEURA: No significant pulmonary or pleural abnormality. No pneumothorax. ADDITIONAL FINDINGS: No significant additional findings. IMPRESSION: No acute disease or interval change from 09/01/2020 Assessment and Plan Assessment and plan: Acute encephalopathy -CT head negative -Afebrile, no leukocytosis -Blood cultures pending -Neuro checks -?? r/t hyponatremia or EtOH abuse -UDS pending -Neuro consult pending -Supportive care Hyponatremia -Na on [id number] -Slowly correct Na with IVF -Continue to monitor replete prn -Serum and urine osmo pending -hx of hyponatremia (previously admitted 08/2020 and d/c on sodium chloride replacement), unsure of patient's compliance Anemia -Hemoglobin on admission 11.0 -Continue to monitor hemoglobin -Ferritin and TIBC pending -Transfuse as needed for hgb<7 -No s/s of active bleeding EtOH Abuse -Last drink 11/11/20 -Initiate CIWA protocol -Start Thiamine and Folic Acid -On D5 NS -Counseled for cessation abuse -Mental health eval pending Tobacco abuse -Current every day smoker -Counseled for cessation -Nicotine patch when necessary HTN -Monitor BP -Resume home hypertensive meds DVT PPX -On Heparin and SCD's Advance Directives: No VTE prophylaxis?: Chemical, Mechanical Plan of care discussed with patient/family: Yes
--- NOTE | 2020-11-12 09:17 | Consultation ---
History of Present Illness - Reason for Consult Consult date: 11/12/20 Reason for consult: MHE Requesting physician: ASHOK PALOMINO - Chief Complaint Chief complaint: AMS - History of Present Psychiatric Illness Per ED Provider: The patient presents to the emergency department with a chief complaint of not feeling well. Patient states that she has a felt strange and states his mind is wondering. He states he is confused. Patient cannot tell me his address but cannot tell me his date of . He does describe a dull headache that is diffuse in nature. He denies any chest pain, shortness of breath, or abdominal pain. Per the records the patient was wandering through the neighborhood knocking on doors. He was dropped off at the police station by helpful neighbor and upon arriving to the police station EMS was called. PSYCH HPI Patient is a 59-year-old -Italian male with unspecified past medical or psychiatric history presented to the ED with chief complaint of confusion, subsequent request for psychiatric evaluation. Patient seen in the room patient acting surprised asking me where he is and why he is here, patient is disoriented to year, does not know is single , , patient does not even know if he is employed unemployed. Patient is disoriented to time person and place at this moment cannot conduct further investigation. PAST PSYCHIATRIC HISTORY na PAST MEDICAL HISTORY: Family Psychiatric History: None reported or documented SOCIAL HISTORY na MENTAL STATUS EXAMINATION General Appearance and Behavior: Age appropriate, good hygiene, wearing appropriate clothes, uncooperative polite with questioning. Cooperation: Withdrawn Psychomotor Behavior: Psychomotor agitation Mood: Affect and affective range: Flat Thought Process: Tangential, loose associattion Thought Content: Paranoid and confused Speech: Normal volume, Regular rate and rhythm, Intellectual Functioning: Poor Suicidal Ideation: N/A Homicidal Ideation: N/A Impulse Control: Unimpaired Insight and Judgment: Impaired Memory: memory impaired Attention:Distractible, Orientation: Alert, but disoriented and confused Assessment and Plan - Psychiatric problem (1) Altered mental status Current Visit: Yes Status: Acute R41.82 Treatment Plan I have seen patient in the past for similar presentation in August, endorses chronic alcohol use, 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 Defer management to primary at this moment. No acute inpatient benefit for psychiatric, concern for MEDICATIONS: Risks, benefits and alternatives of medications discussed with the patient, questions answered and consent obtained from patient. PSYCHOTHERAPY: Supportive psychotherapy provided MEDICAL: Per primary team DELIRIUM PRECAUTIONS: Please re-orient patient frequently, keep lights on during the day, and minimize benzodiazepines and opiates as these medications could worsen patient's confusion. METAL SPINNER: DISPOSITION: Do not Recommend acute inpatient psychiatric hospitalization at t his time. Case discussed with Dr. eD León who agrees with current disposition FOLLOW-UP: Will sign off Thank you for the consult. Please contact with any questions and/or concerns. Medications and Allergies Allergies Allergy/AdvReac Type Severity Reaction Status Date / Time lisinopril Allergy Angioedema Verified 09/01/20 02:24 Home Medications Medication Instructions Recorded Confirmed Last Taken Type Catapres 10 mg PO DAILY 09/02/20 09/02/20 Unknown History Gabapentin 300 mg PO BID 09/02/20 09/02/20 Unknown History Gabapentin 300 mg PO QPM #30 capsule 09/03/20 Unknown Rx Sodium Chloride 1 gm PO BID #14 tablet 09/03/20 Unknown Rx amLODIPine 10 mg PO QDAY #30 tablet 09/03/20 Unknown Rx Active Meds: Active Medications Acetaminophen (Acetaminophen 325 Mg Tab) 650 mg PO Q4H PRN PRN Reason: Pain MILD(1-3)/Fever >100.5/ALMENDAREZ Amlodipine Besylate (Amlodipine 10 Mg Tab) 10 mg PO QDAY [facility] Docusate Sodium (Docusate Sodium 100 Mg Cap) 100 mg PO BID GIULIA Folic Acid (Folic Acid 1 Mg Tab) 1 mg PO QDAY [facility] Heparin Sodium (Porcine) (Heparin 5,000 Unit/1 Ml Vial) 5,000 unit SUB-Q Q12HR [facility] Dextrose/Sodium Chloride (D5ns) 1,000 mls @ 100 mls/hr IV DIRECT GIULIA Stop: 11/12/20 12:00 Last Admin: 11/12/20 05:39 Dose: 100 mls/hr Documented by: Lorazepam (Lorazepam 2 Mg/Ml Vial) 2 mg IV Q1H PRN PRN Reason: CIWA-Ar 8-15 Multivitamins (Multivitamins ,Therapeutic Tab) 1 each PO QDAY [facility] Nicotine (Nicotine 14 Mg/24 Hr Patch) 14 mg TD QDAY [facility] Ondansetron HCl (Ondansetron 4 Mg/2 Ml Inj) 4 mg IV Q8H PRN PRN Reason: Nausea And Vomiting Sodium Chloride (Sodium Chloride 0.9% 10 Ml Flush Syringe) 10 ml IV BID GIULIA Sodium Chloride (Sodium Chloride 0.9% 10 Ml Flush Syringe) 10 ml IV PRN PRN PRN Reason: LINE FLUSH Last Admin: 11/12/20 05:39 Dose: 10 ml Documented by: Thiamine HCl (Thiamine 100 Mg Tab) 100 mg PO QDAY GIULIA Mental Status Exam - Vital signs Last Vital Signs Temp 98.2 F 11/12/20 04:46 Pulse 68 11/12/20 05:02 Resp 18 11/12/20 05:02 BP 158/87 11/12/20 05:02 Pulse Ox 98 11/12/20 05:02 Results Result Diagrams: 11/11/20 15:07 11/12/20 06:42 Abnormal lab results 11/11/20 11/11/20 11/11/20 Range/Units 15:07 15:07 20:06 RBC 3.09 L (3.65-5.03) M/mm3 Hgb 11.0 L (11.8-15.2) gm/dl Hct 30.9 L (35.5-45.6) % MCV 100 H (84-94) fl MCH 36 H (28-32) pg MCHC 36 H (32-34) % Lymph % (Auto) 10.3 L (13.4-35.0) % [place] % (Auto) 7.4 H (0.0-7.3) % Lymph # (Auto) 0.7 L (1.2-5.4) K/mm3 Seg Neutrophils % 80.8 H (40.0-70.0) % Sodium 125 L 125 L (137-145) mmol/L Chloride 92.9 L 93.9 L (98-107) mmol/L Carbon Dioxide 17 L 20 L (22-30) mmol/L BUN 3 L 4 L (9-20) mg/dL Creatinine 0.6 L 0.6 L (0.8-1.3) mg/dL Glucose 102 H (75-100) mg/dL Magnesium (1.7-2.3) mg/dL Total Protein 6.1 L (6.3-8.2) g/dL Salicylates (2.8-20.0) mg/dL Acetaminophen (10.0-30.0) ug/mL 11/11/20 11/11/20 11/12/20 Range/Units 20:06 20:06 02:58 RBC (3.65-5.03) M/mm3 Hgb (11.8-15.2) gm/dl Hct (35.5-45.6) % MCV (84-94) fl MCH (28-32) pg MCHC (32-34) % Lymph % (Auto) (13.4-35.0) % [place] % (Auto) (0.0-7.3) % Lymph # (Auto) (1.2-5.4) K/mm3 Seg Neutrophils % (40.0-70.0) % Sodium (137-145) mmol/L Chloride (98-107) mmol/L Carbon Dioxide (22-30) mmol/L BUN (9-20) mg/dL Creatinine (0.8-1.3) mg/dL Glucose (75-100) mg/dL Magnesium 1.20 L (1.7-2.3) mg/dL Total Protein (6.3-8.2) g/dL Salicylates < 0.3 L (2.8-20.0) mg/dL Acetaminophen 5.0 L (10.0-30.0) ug/mL 11/12/20 Range/Units 06:42 RBC (3.65-5.03) M/mm3 Hgb (11.8-15.2) gm/dl Hct (35.5-45.6) % MCV (84-94) fl MCH (28-32) pg MCHC (32-34) % Lymph % (Auto) (13.4-35.0) % [place] % (Auto) (0.0-7.3) % Lymph # (Auto) (1.2-5.4) K/mm3 Seg Neutrophils % (40.0-70.0) % Sodium 127 L (137-145) mmol/L Chloride (98-107) mmol/L Carbon Dioxide (22-30) mmol/L BUN (9-20) mg/dL Creatinine (0.8-1.3) mg/dL Glucose (75-100) mg/dL Magnesium (1.7-2.3) mg/dL Total Protein (6.3-8.2) g/dL Salicylates (2.8-20.0) mg/dL Acetaminophen (10.0-30.0) ug/mL All other labs normal. Assessment and Plan - Psychiatric problem (1) Altered mental status Current Visit: Yes Status: Acute
[2020-11-12] MEDS: HEPARIN 5,000 UNIT/1 ML VIAL SUB-Q SCH ×2 (09:54→21:19)
[2020-11-12] MEDS: amLODIPine 10 MG TAB PO SCH (09:55)
[2020-11-12] MEDS: LORazepam 2 MG/ML VIAL IV PRN (09:55)
[2020-11-12] MEDS: DOCUSATE SODIUM 100 MG CAP PO SCH ×2 (09:56→21:19)
[2020-11-12] MEDS: NICOTINE 14 MG/24 HR PATCH TD SCH (09:56)
[2020-11-12] MEDS: FOLIC ACID 1 MG TAB PO SCH (09:56)
[2020-11-12] MEDS: THIAMINE 100 MG TAB PO SCH (09:57)
[2020-11-12] MEDS: MULTIVITAMINS ,THERAPEUTIC TAB PO SCH (09:57)
--- NOTE | 2020-11-12 10:39 | Event Note ---
Date: 11/12/20 Patient seen and examined This is the second visit after midnight 59-year-old -Armenian male who is an ongoing smoker, newly diagnosed with depression, history of EtOH abuse, hypertension, and neuropathy who presents to [facility] ED via EMS with complaints of altered mental status. Review of medical record shows patient was admitted in August of this year after roommate called EMS for noted altered mental status. Patient was also found to be hyponatremic and discharged on oral sodium chloride tablets. It is unsure whether or not patient was compliant with medication. In the ER patient noted to have sodium of 125, BP 178/103, confused Patient was admitted for further evaluation and management, psychiatry has been consulted for psych medication adjustment Continue IV fluid hydration replete magnesium for hypomagnesemia, follow psych recommendation, PT eval Continue current management and plan as dictated in the HPI
[2020-11-12] MEDS ORDERED: MAGNESIUM SULFATE 3 GM in SODIUM CHLORIDE 0.9% 100 ML IV ONE (11:00)
[2020-11-12] MEDS: cloNIDine TTS 0.2 MG/24 HR PATCH TD SCH (11:07)
[2020-11-12 13:17] LABS: Amphetamine Screen,Urine Negative; Benzodiazepines Screen,Urine Negative; Cannabinoid Screen,Urine Negative; Cocaine Screen,Urine Negative; Methadone Screen,Urine Negative; Opiate Screen,Urine Negative
[2020-11-12 13:18] LABS: Osmolality,Urine 149 Mosm/kg
--- NOTE | 2020-11-12 14:22 | Consultation ---
History of Present Illness Consult date: 11/12/20 Reason for Consult: AMS Chief complaint: Confused History of present illness: 59 yo male with alcohol abuse, htn, neuropathy, depression (recently diagnosed and started on medication) who presents with noted encephalopathy with noted hyponatremia during this hospital course. Patient had reported to the ED staff that he was not feeling well and the felt strange and was found to be knocking on his neighbors doors. Patient notes significant weight loss, loss of appetite, blurred vision, tingling of feet, and a period of nausea/vomiting for more than a week recently of unknown origin. Notes he drinks regularly. Past History Past Medical History: hypertension, other (EtOH abuse, current smoker, neuropathy, newly diagnosed with depression) Past Surgical History: Other (Denies surgical history) Social history: single (Lives and boardinghouse with several roommates), smoking (Every day smoker), alcohol abuse (3-4 large cans of beer daily last drink 11/11/2020). denies: prescription drug abuse, IV drug use Family history: no significant family history Medications and Allergies Allergies Allergy/AdvReac Type Severity Reaction Status Date / Time lisinopril Allergy Angioedema Verified 09/01/20 02:24 Home Medications Medication Instructions Recorded Confirmed Last Taken Type Catapres 10 mg PO DAILY 09/02/20 09/02/20 Unknown History Gabapentin 300 mg PO BID 09/02/20 09/02/20 Unknown History Gabapentin 300 mg PO QPM #30 capsule 09/03/20 Unknown Rx Sodium Chloride 1 gm PO BID #14 tablet 09/03/20 Unknown Rx amLODIPine 10 mg PO QDAY #30 tablet 09/03/20 Unknown Rx Active Meds: Active Medications Acetaminophen (Acetaminophen 325 Mg Tab) 650 mg PO Q4H PRN PRN Reason: Pain MILD(1-3)/Fever >100.5/ALMENDAREZ Amlodipine Besylate (Amlodipine 10 Mg Tab) 10 mg PO QDAY [facility] Last Admin: 11/12/20 09:55 Dose: 10 mg Documented by: Clonidine HCl (Clonidine Tts 0.2 Mg/24 Hr Patch) 0.2 mg TD Th [facility] Last Admin: 11/12/20 11:07 Dose: 0.2 mg Documented by: Docusate Sodium (Docusate Sodium 100 Mg Cap) 100 mg PO BID [facility] Last Admin: 11/12/20 09:56 Dose: 100 mg Documented by: Folic Acid (Folic Acid 1 Mg Tab) 1 mg PO QDAY [facility] Last Admin: 11/12/20 09:56 Dose: 1 mg Documented by: Heparin Sodium (Porcine) (Heparin 5,000 Unit/1 Ml Vial) 5,000 unit SUB-Q Q12HR [facility] Last Admin: 11/12/20 09:54 Dose: 5,000 unit Documented by: Lorazepam (Lorazepam 2 Mg/Ml Vial) 2 mg IV Q1H PRN PRN Reason: CIWA-Ar 8-15 Last Admin: 11/12/20 09:55 Dose: 2 mg Documented by: Multivitamins (Multivitamins ,Therapeutic Tab) 1 each PO QDAY [facility] Last Admin: 11/12/20 09:57 Dose: 1 each Documented by: Nicotine (Nicotine 14 Mg/24 Hr Patch) 14 mg TD QDAY [facility] Last Admin: 11/12/20 09:56 Dose: 14 mg Documented by: Ondansetron HCl (Ondansetron 4 Mg/2 Ml Inj) 4 mg IV Q8H PRN PRN Reason: Nausea And Vomiting Sodium Chloride (Sodium Chloride 0.9% 10 Ml Flush Syringe) 10 ml IV BID [facility] Last Admin: 11/12/20 09:57 Dose: 10 ml Documented by: Sodium Chloride (Sodium Chloride 0.9% 10 Ml Flush Syringe) 10 ml IV PRN PRN PRN Reason: LINE FLUSH Last Admin: 11/12/20 05:39 Dose: 10 ml Documented by: Thiamine HCl (Thiamine 100 Mg Tab) 100 mg PO QDAY [facility] Last Admin: 11/12/20 09:57 Dose: 100 mg Documented by: Review of Systems All systems: negative (as per HPI;) Physical Examination - Vital Signs Vital Signs: Vital Signs Temp Pulse Resp BP Pulse Ox 98.2 F 79 12 178/103 100 11/11/20 14:43 11/11/20 14:43 11/11/20 14:43 11/11/20 14:43 11/11/20 14:43 - Physical Exam Narrative exam: Gen: nad, thin; Head: normocephalic; Eyes: no gaze deviation; no ptosis; ENT: normal vocalization; CVS: warm and well-perfused; Pulm: no respiratory distress; GI: appears non-distended, protuberant; Ext: no cyanosis at distal extremities; Skin: no acute rash or hives at distal extremities; Heme: no pathologic ecchymosis at distal extremities; Neuro: alert, oriented to name, age, month, year, surroundings, no dysarthria, no aphasia, CN 2 - PERRL, visual fitzgerald decreased at right eye; CN 3, 4, 6 - EOMI, CN 5 - facial sensation symmetric to light touch, CN 7 - facial movement symmetric, CN 8 - hearing grossly intact, CN 9, 10 - uvula midline, CN 11 - shrug symmetric, CN 12 - tongue midline; Motor - at least 4/5 at right exts and at least 4+/5 at left exts; Sensory - light touch symmetric, Cerebellar - fnf slowed/intact but w/ kinetic tremor, Gait - deferred secondary to high fall risk; Results - Laboratory Findings CBC and BMP: 11/11/20 15:07 11/12/20 06:42 Abnormal Lab Findings: Abnormal Labs 11/11/20 11/11/20 11/11/20 15:07 15:07 20:06 RBC 3.09 L Hgb 11.0 L Hct 30.9 L MCV 100 H MCH 36 H MCHC 36 H Lymph % (Auto) 10.3 L Centre % (Auto) 7.4 H Lymph # (Auto) 0.7 L Seg Neutrophils % 80.8 H Sodium 125 L 125 L Chloride 92.9 L 93.9 L Carbon Dioxide 17 L 20 L BUN 3 L 4 L Creatinine 0.6 L 0.6 L Glucose 102 H Magnesium Total Protein 6.1 L Salicylates Acetaminophen 11/11/20 11/11/20 11/12/20 20:06 20:06 02:58 RBC Hgb Hct MCV MCH MCHC Lymph % (Auto) Centre % (Auto) Lymph # (Auto) Seg Neutrophils % Sodium Chloride Carbon Dioxide BUN Creatinine Glucose Magnesium 1.20 L Total Protein Salicylates < 0.3 L Acetaminophen 5.0 L 11/12/20 06:42 RBC Hgb Hct MCV MCH MCHC Lymph % (Auto) Centre % (Auto) Lymph # (Auto) Seg Neutrophils % Sodium 127 L Chloride Carbon Dioxide BUN Creatinine Glucose Magnesium Total Protein Salicylates Acetaminophen Assessment and Plan 59 yo male with alcohol abuse, htn, neuropathy, depression (recently diagnosed and started on medication) who presents with noted encephalopathy with noted hyponatremia during this hospital course. 1. Metabolic Encephalopathy - confirm b12, prealbumin, thiamine; further workup per primary team. 2. Seizure / Postictal - EEG ordered. 3. Frontal Lobe Stroke / Neoplasm - MR Brain w/ wo contrast (if no contraindication) recommended. 4. Hyponatremia - evaluation/management per primary team. 5. Alcohol Abuse / Withdrawal / DTs - high risk of thiamine deficiency; confirm stat thiamine level and then thiamine 400 mg iv tid x 3 days and then 100 mg po qday; management per primary team. 6. Unsteady gait - pt/ot evaluation/monitoring. Olivier Thakur MD Neurology
--- NOTE | 2020-11-12 17:53 | Electrocardiograph Report ---
[facility] Test Date: 2020-11-11 Test Time: 20:19:37 Pat Name: JOSHUA STATON Department: Room: A381 Gender: M [employer]: EMILIE : 1960 Requested By: REBEKAH LEVIN Order Number: [id number] Reading MD: Doroteo Oswald Measurements Intervals [place] Rate: 68 P: 79 VA: 149 QRS: 55 QRSD: 83 T: 69 QT: 405 QTc: 432 Interpretive Statements Sinus rhythm Probable left atrial enlargement Anteroseptal infarct, age indeterminate No previous ECG available for comparison Electronically Signed On 11-12-2020 17:53:04 EDT by Doroteo Oswald
--- NOTE | 2020-11-12 18:25 | Magnetic Resonance Report ---
MR brain wo/w con INDICATION / CLINICAL INFORMATION: metastasis. TECHNIQUE: Multiplanar, multisequence MR images of the brain were obtained. COMPARISON: CT head from 11/11/2020 FINDINGS: INTRACRANIAL: No restricted diffusion. No hemorrhage. Ventricular caliber is normal. No extra-axial c ollection. No mass. No herniation. Major intracranial vascular flow voids are preserved. Periventric ular and centrum semiovale T2 white matter hyperintensities most consistent with sequela of chronic m icrovascular disease. No abnormal enhancement. ORBITS: No significant abnormality of visualized orbits. SINUSES / MASTOIDS: Mild mucosal thickening in the right maxillary sinus and mild mucosal thickening in ethmoid air cells. Left maxillary sinus mucosal retention cyst. Mastoid air cells are essentially clear. ADDITIONAL FINDINGS: None. IMPRESSION: 1. No intracranial metastasis. Signer Name: Jayy Obando MD Signed: 11/12/2020 6:20 PM Workstation Name: [id number]
[2020-11-13] MEDS: LORazepam 2 MG/ML VIAL IV PRN (01:50)
[2020-11-13 07:49] LABS: Basophils % (Auto) 0.4 % (0.0-1.8); Eosinophils # (Auto) 0.1 K/mm3 (0.0-0.4); Eosinophils % (Auto) 1.8 % (0.0-4.3); Hematocrit 31.8 % (35.5-45.6); Hemoglobin 10.8 gm/dl (11.8-15.2); Lymphocytes # (Auto) 0.8 K/mm3 (1.2-5.4); Lymphocytes % (Auto) 10.8 % (13.4-35.0); Mean Corpuscular HGB Conc 34 % (32-34); Mean Corpuscular Volume 102 fl (84-94); Monocytes # (Auto) 0.8 K/mm3 (0.0-0.8); Monocytes % (Auto) 10.9 % (0.0-7.3); Platelet Count 242 K/mm3 (140-440); Red Blood Count 3.11 M/mm3 (3.65-5.03); Red Cell Distribution Width 13.5 % (13.2-15.2)
[2020-11-13 08:16] LABS: Blood Urea Nitrogen 9 mg/dL (9-20); Calcium 8.2 mg/dL (8.4-10.2); Hemolysis Index 8
[2020-11-13 08:20] LABS: BUN/Creatinine Ratio 15
[2020-11-13] MEDS: MULTIVITAMINS ,THERAPEUTIC TAB PO SCH (11:30)
[2020-11-13] MEDS: DOCUSATE SODIUM 100 MG CAP PO SCH ×2 (11:31→21:22)
[2020-11-13] MEDS: THIAMINE 100 MG TAB PO SCH (11:31)
[2020-11-13] MEDS: FOLIC ACID 1 MG TAB PO SCH (11:31)
[2020-11-13] MEDS: amLODIPine 10 MG TAB PO SCH (11:31)
[2020-11-13] MEDS: NICOTINE 14 MG/24 HR PATCH TD SCH (11:31)
[2020-11-13] MEDS: HEPARIN 5,000 UNIT/1 ML VIAL SUB-Q SCH ×2 (11:32→21:22)
--- NOTE | 2020-11-13 12:33 | Consultation ---
History of Present Illness - Reason for Consult Consult date: 11/13/20 syphilis Requesting physician: EDMOND BARNES - History of Present Illness The patient is a 59-year-old male with history of alcohol, tobacco use, hypertension was admitted to the hospital with altered mental status. Apparently, he had bizarre behavior. He was noted to have hyponatremia on admission which apparently was also diagnosed in the past. Additional work-up for encephalopathy was done and revealed a positive syphilis antibody and positive RPR titer of 1:8, hence infectious diseases was consulted Patient is feeling better today, remains afebrile. Denies any known history of syphilis. States almost 20 years ago, he had purulent drainage from his penis following a sexual encounter and was treated with 1 shot, but never diagnosed with syphilis. Review of Systems: General: no fevers,chills or rigors HEENT: no new visual disturbance Respiratory: No cough, sputum, hemoptysis or shortness of breath Cardiovascular: No chest pain, syncope Gastrointestinal: No nausea, vomiting or diarrhea Genitourinary: No dysuria or hematuria Musculoskeletal: No new or worsening neck pain or back pain Neurologic: No headaches, seizures Hematologic: No easy bruising or bleeding Endocrine: No night sweats or acute weight loss Skin: negative for rash, jaundice Psychiatric: No suicidal or homicidal ideation Past History Past Medical History: hypertension, other (EtOH abuse, current smoker, neuropathy, newly diagnosed with depression) Past Surgical History: Other (Denies surgical history) Social history: single (Lives and boardinghouse with several roommates), smoking (Every day smoker), alcohol abuse (3-4 large cans of beer daily last drink 2020). denies: prescription drug abuse, IV drug use Family history: no significant family history Medications and Allergies Allergies Allergy/AdvReac Type Severity Reaction Status Date / Time lisinopril Allergy Angioedema Verified 09/01/20 02:24 Home Medications Medication Instructions Recorded Confirmed Last Taken Type Catapres 10 mg PO DAILY 09/02/20 09/02/20 Unknown History Gabapentin 300 mg PO BID 09/02/20 09/02/20 Unknown History Gabapentin 300 mg PO QPM #30 capsule 09/03/20 Unknown Rx Sodium Chloride 1 gm PO BID #14 tablet 09/03/20 Unknown Rx amLODIPine 10 mg PO QDAY #30 tablet 09/03/20 Unknown Rx Active Meds: Active Medications Acetaminophen (Acetaminophen 325 Mg Tab) 650 mg PO Q4H PRN PRN Reason: Pain MILD(1-3)/Fever >100.5/[place]ENDAREZ Amlodipine Besylate (Amlodipine 10 Mg Tab) 10 mg PO QDAY [facility] Last Admin: 11/13/20 11:31 Dose: 10 mg Documented by: Clonidine HCl (Clonidine Tts 0.2 Mg/24 Hr Patch) 0.2 mg TD Th [facility] Last Admin: 11/12/20 11:07 Dose: 0.2 mg Documented by: Docusate Sodium (Docusate Sodium 100 Mg Cap) 100 mg PO BID [facility] Last Admin: 11/13/20 11:31 Dose: 100 mg Documented by: Folic Acid (Folic Acid 1 Mg Tab) 1 mg PO QDAY [facility] Last Admin: 11/13/20 11:31 Dose: 1 mg Documented by: Heparin Sodium (Porcine) (Heparin 5,000 Unit/1 Ml Vial) 5,000 unit SUB-Q Q12HR [facility] Last Admin: 11/13/20 11:32 Dose: 5,000 unit Documented by: Lorazepam (Lorazepam 2 Mg/Ml Vial) 2 mg IV Q1H PRN PRN Reason: CIWA-Ar 8-15 Last Admin: 11/13/20 01:50 Dose: 2 mg Documented by: Multivitamins (Multivitamins ,Therapeutic Tab) 1 each PO QDAY [facility] Last Admin: 11/13/20 11:30 Dose: 1 each Documented by: Nicotine (Nicotine 14 Mg/24 Hr Patch) 14 mg TD QDAY [facility] Last Admin: 11/13/20 11:31 Dose: Not Given Documented by: Ondansetron HCl (Ondansetron 4 Mg/2 Ml Inj) 4 mg IV Q8H PRN PRN Reason: Nausea And Vomiting Sodium Chloride (Sodium Chloride 0.9% 10 Ml Flush Syringe) 10 ml IV BID [facility] Last Admin: 11/13/20 11:35 Dose: 10 ml Documented by: Sodium Chloride (Sodium Chloride 0.9% 10 Ml Flush Syringe) 10 ml IV PRN PRN PRN Reason: LINE FLUSH Last Admin: 11/12/20 05:39 Dose: 10 ml Documented by: Thiamine HCl (Thiamine 100 Mg Tab) 100 mg PO QDAY [facility] Last Admin: 11/13/20 11:31 Dose: 100 mg Documented by: Physical Examination - Physical Exam Narrative exam: Physical Exam: Constitutional: Alert, cooperative. No acute distress Head, Ears, Nose: Normocephalic, atraumatic. External ears, nose normal Eyes: Conjunctivae/corneas clear. No icterus. No ptosis. Neck: Supple, no meningeal signs Cardiovascular: S1, S2 normal. Respiratory: Good air entry, clear to auscultation bilaterally GI: Soft, non-tender; bowel sounds normal. No peritoneal signs Musculoskeletal: No pedal edema, no cyanosis. Skin: No rash or abscess Hem/Lymphatic: No palpable cervical or supraclavicular nodes. No lymphangitis Psych: Mood ok. Affect normal Neurological: Awake, alert, oriented. No gross abnormality - Constitutional Vitals: Vital Signs Temp Pulse Resp BP Pulse Ox 98.6 F 78 18 146/82 100 11/13/20 05:59 11/13/20 06:50 11/13/20 05:59 11/13/20 06:50 11/13/20 05:59 Temperature -Last 24 Hours Temperature 98.6 F Temperature 98.6 F Results - Labs CBC & Chem 7: 11/13/20 07:18 11/13/20 07:18 Labs: Abnormal lab results 11/12/20 11/13/20 11/13/20 Range/Units 17:54 07:18 07:18 RBC 3.11 L (3.65-5.03) M/mm3 Hgb 10.8 L (11.8-15.2) gm/dl Hct 31.8 L (35.5-45.6) % MCV 102 H (84-94) fl MCH 35 H (28-32) pg Lymph % (Auto) 10.8 L (13.4-35.0) % Holt % (Auto) 10.9 H (0.0-7.3) % Lymph # (Auto) 0.8 L (1.2-5.4) K/mm3 Seg Neutrophils % 76.1 H (40.0-70.0) % Sodium 133 L (137-145) mmol/L Creatinine 0.6 L (0.8-1.3) mg/dL Calcium 8.2 L (8.4-10.2) mg/dL Syphilis IgG Antibody Reactive A (NonReactive) - Imaging and Cardiology MRI - head: report reviewed, image reviewed Assessment and Plan Cultures: Blood culture: No growth Syphilis IgG and RPR positive with titer of 1:8 HIV negative A/P: 59-year-old male with alcohol, tobacco abuse admitted with encephalopathy and bizarre behavior: #Syphilis: Late latent versus neurosyphilis. Patient declines LP. #Acute encephalopathy: Related to syphilis versus hyponatremia Recs: -Declined LP, hence best to treat as neurosyphilis -IV penicillin G 4 million units q4 hrs or 20 million units as continuous infusion daily for 14 days ending 11/28/2020 -midline ordered -CM orders placed, considering his mental issues as well as his living conditions, may be best to get IV penicillin at a rehab facility Monica Osuna MD, FACP [facility] O: [phone] F: [phone]
[2020-11-13] MEDS ORDERED: PENICILLIN G POTASSIUM 5 MIL UNITS INJ IV SCH (13:00)
--- NOTE | 2020-11-13 14:19 | Progress Note ---
Assessment and Plan Assessment and plan: 59-year-old -[place] male who presents with acute encephalopathy Acute encephalopathy, resolved -CT head negative MRI brain completed, but I cannot read the report due to technical errors -Blood cultures no growth to date -Neuro consult, recommendations noted, pending EEG Syphilis infection Infectious disease consulted Patient declines LP to rule out neurosyphilis Start treatment with IV penicillin for 14 days per recommendations of ID Hyponatremia -Na on [id number] -Slowly correct Na with IVF Resolving with fluids Patient needs to take salt tabs at the time of discharge Macrocytic anemia secondary to alcohol use B12 normal EtOH Abuse -Last drink 11/11/20 Currently on CIWA protocol - Thiamine and Folic Acid -D5 normal saline fluids Tobacco abuse -Current every day smoker -Counseled for cessation -Nicotine patch when necessary HTN -Monitor BP -Resume home hypertensive meds Severe protein caloric malnutrition secondary to alcohol use Dietary supplements DVT PPX: Heparin CODE STATUS: Full Disposition: Start treatment for syphilis, continue CIWA protocol, continue physical therapy History Interval history: 11/13 patient with no confusion, states that he has no pain. No fevers or chills. Patient states that he feels weak when he walks. Hospitalist Physical - Physical exam Narrative exam: General appearance no acute distress, well-nourished, cachectic EENT: PERRL, EOM intact, hearing intact, clear oral mucosa, dentition normal Neck: Present: supple, normal ROM Respiratory: bilateral: CTA, negative: rales, rhonchi, wheezing Cardiovascular: Regular rate/rhythm, Normal S1 & S2. No gallop, rub Extremities: no ischemia, No edema, normal temperature, normal color, Full ROM Abdominal: soft, non-tender, non-distended, normal bowel sounds Integumentary: Present: clear, warm, dry Psychiatric: appropriate mood/affect, intact judgment & insight Neurologic: CNII-XII intact, moves all extremities, minor tremors in upper extremities - Constitutional Vitals: Temp Pulse Resp BP Pulse Ox 98.6 F 78 18 146/82 100 11/13/20 05:59 11/13/20 06:50 11/13/20 05:59 11/13/20 06:50 11/13/20 05:59 HEART Score - HEART Score Troponin: Troponin T < 0.010 ng/mL (0.00-0.029) 11/11/20 20:06 Results - Labs CBC & Chem 7: 11/13/20 07:18 11/13/20 07:18 Labs: Laboratory Last Values WBC 7.6 K/mm3 (4.5-11.0) 11/13/20 07:18 RBC 3.11 M/mm3 (3.65-5.03) L 11/13/20 07:18 Hgb 10.8 gm/dl (11.8-15.2) L 11/13/20 07:18 Hct 31.8 % (35.5-45.6) L 11/13/20 07:18 MCV 102 fl (84-94) H 11/13/20 07:18 MCH 35 pg (28-32) H 11/13/20 07:18 MCHC 34 % (32-34) 11/13/20 07:18 RDW 13.5 % (13.2-15.2) 11/13/20 07:18 Plt Count 242 K/mm3 (140-440) 11/13/20 07:18 Lymph % (Auto) 10.8 % (13.4-35.0) L 11/13/20 07:18 [place] % (Auto) 10.9 % (0.0-7.3) H 11/13/20 07:18 Eos % (Auto) 1.8 % (0.0-4.3) 11/13/20 07:18 Baso % (Auto) 0.4 % (0.0-1.8) 11/13/20 07:18 Lymph # (Auto) 0.8 K/mm3 (1.2-5.4) L 11/13/20 07:18 [place] # (Auto) 0.8 K/mm3 (0.0-0.8) 11/13/20 07:18 Eos # (Auto) 0.1 K/mm3 (0.0-0.4) 11/13/20 07:18 Baso # (Auto) 0.0 K/mm3 (0.0-0.1) 11/13/20 07:18 Seg Neutrophils % 76.1 % (40.0-70.0) H 11/13/20 07:18 Seg Neutrophils # 5.8 K/mm3 (1.8-7.7) 11/13/20 07:18 PT 12.7 Sec. (12.2-14.9) 11/11/20 20:06 INR 0.96 (0.87-1.13) 11/11/20 20:06 APTT 30.5 Sec. (24.2-36.6) 11/11/20 20:06 Sodium 133 mmol/L (137-145) L 11/13/20 07:18 Potassium 3.9 mmol/L (3.6-5.0) 11/13/20 07:18 Chloride 99.4 mmol/L (98-107) 11/13/20 07:18 Carbon Dioxide 24 mmol/L (22-30) 11/13/20 07:18 Anion Gap 14 mmol/L 11/13/20 07:18 BUN 9 mg/dL (9-20) 11/13/20 07:18 Creatinine 0.6 mg/dL (0.8-1.3) L 11/13/20 07:18 Estimated GFR > 60 ml/min 11/13/20 07:18 BUN/Creatinine Ratio 15 % 11/13/20 07:18 Glucose 84 mg/dL (75-100) 11/13/20 07:18 Hemoglobin A1c 4.7 % (4-6) 11/12/20 02:58 Osmolality 268 Mosm/kg 11/12/20 02:58 Lactic Acid 1.00 mmol/L (0.7-2.0) 11/11/20 20:06 Calcium 8.2 mg/dL (8.4-10.2) L 11/13/20 07:18 Phosphorus 3.30 mg/dL (2.5-4.5) 11/12/20 02:58 Magnesium 1.20 mg/dL (1.7-2.3) L 11/12/20 02:58 Ferritin 272.0 ng/mL (30.0-300.0) 11/12/20 06:42 Total Bilirubin 0.30 mg/dL (0.1-1.2) 11/11/20 20:06 AST 29 units/L (5-40) 11/11/20 20:06 ALT 27 units/L (7-56) 11/11/20 20:06 Alkaline Phosphatase 85 units/L (35-129) 11/11/20 20:06 Ammonia 38.0 umol/L (25-60) 11/11/20 20:06 Total Creatine Kinase 141 units/L (55-170) 11/11/20 20:06 Troponin T < 0.010 ng/mL (0.00-0.029) 11/11/20 20:06 Total Protein 6.1 g/dL (6.3-8.2) L 11/11/20 20:06 Albumin 3.9 g/dL (3.9-5) 11/11/20 20:06 Albumin/Globulin Ratio 1.8 % 11/11/20 20:06 Vitamin B12 505.1 pg/mL (211-911) 11/12/20 17:54 TSH 1.280 mlU/mL (0.270-4.200) 11/12/20 17:54 Urine Color Yellow (Yellow) 11/12/20 01:12 Urine Turbidity Clear (Clear) 11/12/20 01:12 Urine pH 5.0 (5.0-7.0) 11/12/20 01:12 Ur Specific [place] 1.012 (1.003-1.030) 11/12/20 01:12 Urine Protein <15 mg/dl mg/dL (Negative) 11/12/20 01:12 Urine Glucose (UA) Neg mg/dL (Negative) 11/12/20 01:12 Urine Ketones Neg mg/dL (Negative) 11/12/20 01:12 Urine Blood Neg (Negative) 11/12/20 01:12 Urine Nitrite Neg (Negative) 11/12/20 01:12 Urine Bilirubin Neg (Negative) 11/12/20 01:12 Urine Urobilinogen < 2.0 mg/dL (<2.0) 11/12/20 01:12 Ur Leukocyte Esterase Neg (Negative) 11/12/20 01:12 Urine WBC (Auto) 1.0 /HPF (0.0-6.0) 11/12/20 01:12 Urine RBC (Auto) 1.0 /HPF (0.0-6.0) 11/12/20 01:12 Urine Mucus Few /HPF 11/12/20 01:12 Urine Osmolality 149 Mosm/kg 11/12/20 12:19 Salicylates < 0.3 mg/dL (2.8-20.0) L 11/11/20 20:06 Urine Opiates Screen Negative 11/12/20 12:19 Urine Methadone Screen Negative 11/12/20 12:19 Acetaminophen 5.0 ug/mL (10.0-30.0) L 11/11/20 20:06 Ur Barbiturates Screen Negative 11/12/20 12:19 Ur Phencyclidine Scrn Negative 11/12/20 12:19 Ur Amphetamines Screen Negative 11/12/20 12:19 U Benzodiazepines Scrn Negative 11/12/20 12:19 Urine Cocaine Screen Negative 11/12/20 12:19 U Marijuana (THC) Screen Negative 11/12/20 12:19 Drugs of Abuse Note Disclamer 11/12/20 12:19 Plasma/Serum Alcohol < 0.01 % (0-0.07) 11/11/20 20:06 Syphilis IgG Antibody Reactive (NonReactive) A 11/12/20 17:54 RPR Titer 1:8 11/12/20 17:54 HIV 1&2 Antibody Rapid Non react (Non React) 11/12/20 17:54 HIV P24 Antigen Non react (Non React) 11/12/20 17:54 Microbiology: Microbiology 11/11/20 01:12 Urine,Clean Catch Urine Culture - Preliminary NO GROWTH AFTER 24 HOURS 11/11/20 20:06 Peripheral/Venous Blood Culture - Preliminary NO GROWTH AFTER 24 HOURS 11/11/20 20:13 Peripheral/Venous Blood Culture - Preliminary NO GROWTH AFTER 24 HOURS [place]/IV: Voiding Method Urinal Active Medications - Current Medications Current Medications: Generic Name Dose Route Start Last Admin Trade Name Freq PRN Reason Stop Dose Admin Acetaminophen 650 mg 11/12/20 02:41 Acetaminophen 325 Mg Tab PO Q4H PRN Pain MILD(1-3)/Fever >100.5/ALMENDAREZ Amlodipine Besylate 10 mg 11/12/20 10:00 11/13/20 11:31 Amlodipine 10 Mg Tab PO 10 mg QDAY GIULIA Administration Clonidine HCl 0.2 mg 11/12/20 11:00 11/12/20 11:07 Clonidine Tts 0.2 Mg/24 Hr Patch TD 0.2 mg Th GIULIA Administration Docusate Sodium 100 mg 11/12/20 10:00 11/13/20 11:31 Docusate Sodium 100 Mg Cap PO 100 mg BID GIULIA Administration Folic Acid 1 mg 11/12/20 10:00 11/13/20 11:31 Folic Acid 1 Mg Tab PO 1 mg QDAY GIULIA Administration Heparin Sodium (Porcine) 5,000 unit 11/12/20 10:00 11/13/20 11:32 Heparin 5,000 Unit/1 Ml Vial SUB-Q 5,000 unit Q12HR GIULIA Administration Penicillin G Potassium 4 mil. 50 mls @ 100 mls/hr 11/13/20 14:00 units/ Sodium Chloride IV 11/28/20 06:59 Q4HR GIULIA Lorazepam 2 mg 11/12/20 02:43 11/13/20 01:50 Lorazepam 2 Mg/Ml Vial IV 2 mg Q1H PRN Administration [place] 8-15 Multivitamins 1 each 11/12/20 10:00 11/13/20 11:30 Multivitamins ,Therapeutic Tab PO 1 each QDAY GIULIA Administration Nicotine 14 mg 11/12/20 10:00 11/13/20 11:31 Nicotine 14 Mg/24 Hr Patch TD Not Given QDAY GIULIA Ondansetron HCl 4 mg 11/12/20 02:41 Ondansetron 4 Mg/2 Ml Inj IV Q8H PRN Nausea And Vomiting Sodium Chloride 10 ml 11/12/20 10:00 11/13/20 11:35 Sodium Chloride 0.9% 10 Ml Flush Syringe IV 10 ml BID GIULIA Administration Sodium Chloride 10 ml 11/12/20 02:41 11/12/20 05:39 Sodium Chloride 0.9% 10 Ml Flush Syringe IV 10 ml PRN PRN Administration LINE FLUSH Thiamine HCl 100 mg 11/12/20 10:00 11/13/20 11:31 Thiamine 100 Mg Tab PO 100 mg QDAY GIULIA Administration Nutrition/Malnutrition Assess - Dietary Evaluation Nutrition/Malnutrition Findings: Nutrition Notes Start: 11/12/20 09:53 Freq: Status: Active Protocol: Document 11/12/20 09:53 AT (Rec: 11/12/20 09:56 AT [id number]) Co-Sign 11/12/20 09:53 CW Nutrition Notes Need for Assessment generated from: MD Order Initial or Follow up Assessment Current Diagnosis Hypertension Other Pertinent Diagnosis AMS, Neuropathy, Depression, hx EtOH abuse, Metabolic Encephalopathy Current Diet Cardiac Diet Labs/Tests Na 127 Mg 1.2 Pertinent Medications D5NS at 100 mL/hr Thiamine HCl MVI Folic Acid Colace Height 5 ft 10 in Weight 74.843 kg [place] Body Weight (kg) 75.45 BMI 23.6 Weight Status Appropriate Subjective/Other Information Consult for ONS. Per RN, pt consumed 30% of breakfast. RN also reports pt appears "very thin" and is confused. Pt may be at nutritional risk given hx of EtOH abuse and poor consumptions currently. Newcomer Hostess did not enter contact room and was unable to ascertain whether pt has visible signs of malnutrition. Burn Absent Trauma Absent Current % PO Poor (25-49%) Minimum of two criteria No physical signs of malnutrition #1 Nutrition Diagnosis Inadequate oral intake Etiology AMS As Evidenced by Signs and Symptoms pt consuming 30% of breakfast Is patient on ventilator? No Is Patient Ambulatory and/or Out of Bed No REE-([place] [facility]-confined to bed) [phone] Calculation Used for Recommendations [place] Additional Notes PRO needs: 60-75g (0.8-1g/kg) Fluid needs: 1mL/kcal or per MD Nutrition Intervention Change Diet Order: Continue diet as ordered Add Supplement/Snack (indicate name/kcal Ensure Enlive BID /protein ) Provides kCal: 700 Provides Protein (gm) 40 Goal #1 Meet at least 75% of EER and protein needs via diet and ONS Anticipated Discharge Needs: Cardiac diet with ONS PRN Follow-Up By: 11/16/20 Additional Comments F/U for stable intakes and ONS tolerance
[2020-11-13] MEDS: PENICILLIN G POTASSIUM 4 MIL.UNITS in SODIUM CHLORIDE 0.9% 50 ML IV SCH ×3 (16:40→21:22)
[2020-11-14] MEDS: PENICILLIN G POTASSIUM 4 MIL.UNITS in SODIUM CHLORIDE 0.9% 50 ML IV SCH ×6 (01:11→22:30)
[2020-11-14 07:08] LABS: Blood Urea Nitrogen 13 mg/dL (9-20); Calcium 8.5 mg/dL (8.4-10.2); Hemolysis Index 6
[2020-11-14 07:11] LABS: BUN/Creatinine Ratio 19
[2020-11-14] MEDS: THIAMINE 100 MG TAB PO SCH (10:12)
[2020-11-14] MEDS: DOCUSATE SODIUM 100 MG CAP PO SCH ×2 (10:12→22:27)
[2020-11-14] MEDS: NICOTINE 14 MG/24 HR PATCH TD SCH (10:12)
[2020-11-14] MEDS: MULTIVITAMINS ,THERAPEUTIC TAB PO SCH (10:13)
[2020-11-14] MEDS: amLODIPine 10 MG TAB PO SCH (10:13)
[2020-11-14] MEDS: FOLIC ACID 1 MG TAB PO SCH (10:13)
[2020-11-14] MEDS: HEPARIN 5,000 UNIT/1 ML VIAL SUB-Q SCH ×2 (10:14→22:27)
--- NOTE | 2020-11-14 13:10 | Progress Note ---
Assessment and Plan Assessment and plan: 59-year-old -[place] male who presents with acute encephalopathy Acute encephalopathy, resolved -CT head negative MRI brain completed, but I cannot read the report due to technical errors -Blood cultures no growth to date -Neuro consult, recommendations noted, pending EEG Syphilis infection Infectious disease consulted Patient declines LP to rule out neurosyphilis Continue treatment with IV penicillin for 14 days per recommendations of ID Hyponatremia -Na on [id number] -Slowly correct Na with IVF Resolving with fluids Patient needs to take salt tabs at the time of discharge Macrocytic anemia secondary to alcohol use B12 normal EtOH Abuse -Last drink 11/11/20 Currently on CIWA protocol - Thiamine and Folic Acid -D5 normal saline fluids Tobacco abuse -Current every day smoker -Counseled for cessation -Nicotine patch when necessary HTN -Monitor BP -Resume home hypertensive meds Severe protein caloric malnutrition secondary to alcohol use Dietary supplements DVT PPX: Heparin CODE STATUS: Full Disposition: Continue treatment for syphilis, continue CIWA protocol, continue physical therapy History Interval history: 11/13 patient with no confusion, states that he has no pain. No fevers or chills. Patient states that he feels weak when he walks. 11/14: Patient without any complaints, lying in bed, ate breakfast. No fevers or chills. Hospitalist Physical - Physical exam Narrative exam: General appearance no acute distress, well-nourished, cachectic EENT: PERRL, EOM intact, hearing intact, clear oral mucosa, dentition normal Neck: Present: supple, normal ROM Respiratory: bilateral: CTA, negative: rales, rhonchi, wheezing Cardiovascular: Regular rate/rhythm, Normal S1 & S2. No gallop, rub Extremities: no ischemia, No edema, normal temperature, normal color, Full ROM Abdominal: soft, non-tender, non-distended, normal bowel sounds Integumentary: Present: clear, warm, dry Psychiatric: appropriate mood/affect, intact judgment & insight Neurologic: CNII-XII intact, moves all extremities, minor tremors in upper extremities - Constitutional Vitals: Temp Pulse Resp BP Pulse Ox 98.3 F 81 20 130/82 100 11/14/20 05:37 11/14/20 11:11 11/14/20 05:37 11/14/20 11:11 11/14/20 11:11 HEART Score - HEART Score Troponin: Troponin T < 0.010 ng/mL (0.00-0.029) 11/11/20 20:06 Results - Labs CBC & Chem 7: 11/13/20 07:18 11/14/20 06:30 Labs: Laboratory Last Values WBC 7.6 K/mm3 (4.5-11.0) 11/13/20 07:18 RBC 3.11 M/mm3 (3.65-5.03) L 11/13/20 07:18 Hgb 10.8 gm/dl (11.8-15.2) L 11/13/20 07:18 Hct 31.8 % (35.5-45.6) L 11/13/20 07:18 MCV 102 fl (84-94) H 11/13/20 07:18 MCH 35 pg (28-32) H 11/13/20 07:18 MCHC 34 % (32-34) 11/13/20 07:18 RDW 13.5 % (13.2-15.2) 11/13/20 07:18 Plt Count 242 K/mm3 (140-440) 11/13/20 07:18 Lymph % (Auto) 10.8 % (13.4-35.0) L 11/13/20 07:18 [place] % (Auto) 10.9 % (0.0-7.3) H 11/13/20 07:18 Eos % (Auto) 1.8 % (0.0-4.3) 11/13/20 07:18 Baso % (Auto) 0.4 % (0.0-1.8) 11/13/20 07:18 Lymph # (Auto) 0.8 K/mm3 (1.2-5.4) L 11/13/20 07:18 [place] # (Auto) 0.8 K/mm3 (0.0-0.8) 11/13/20 07:18 Eos # (Auto) 0.1 K/mm3 (0.0-0.4) 11/13/20 07:18 Baso # (Auto) 0.0 K/mm3 (0.0-0.1) 11/13/20 07:18 Seg Neutrophils % 76.1 % (40.0-70.0) H 11/13/20 07:18 Seg Neutrophils # 5.8 K/mm3 (1.8-7.7) 11/13/20 07:18 PT 12.7 Sec. (12.2-14.9) 11/11/20 20:06 INR 0.96 (0.87-1.13) 11/11/20 20:06 APTT 30.5 Sec. (24.2-36.6) 11/11/20 20:06 Sodium 135 mmol/L (137-145) L 11/14/20 06:30 Potassium 3.9 mmol/L (3.6-5.0) 11/14/20 06:30 Chloride 99.0 mmol/L (98-107) 11/14/20 06:30 Carbon Dioxide 26 mmol/L (22-30) 11/14/20 06:30 Anion Gap 14 mmol/L 11/14/20 06:30 BUN 13 mg/dL (9-20) 11/14/20 06:30 Creatinine 0.7 mg/dL (0.8-1.3) L 11/14/20 06:30 Estimated GFR > 60 ml/min 11/14/20 06:30 BUN/Creatinine Ratio 19 % 11/14/20 06:30 Glucose 97 mg/dL (75-100) 11/14/20 06:30 Hemoglobin A1c 4.7 % (4-6) 11/12/20 02:58 Osmolality 268 Mosm/kg 11/12/20 02:58 Lactic Acid 1.00 mmol/L (0.7-2.0) 11/11/20 20:06 Calcium 8.5 mg/dL (8.4-10.2) 11/14/20 06:30 Phosphorus 3.30 mg/dL (2.5-4.5) 11/12/20 02:58 Magnesium 1.20 mg/dL (1.7-2.3) L 11/12/20 02:58 Ferritin 272.0 ng/mL (30.0-300.0) 11/12/20 06:42 Total Bilirubin 0.30 mg/dL (0.1-1.2) 11/11/20 20:06 AST 29 units/L (5-40) 11/11/20 20:06 ALT 27 units/L (7-56) 11/11/20 20:06 Alkaline Phosphatase 85 units/L (35-129) 11/11/20 20:06 Ammonia 38.0 umol/L (25-60) 11/11/20 20:06 Total Creatine Kinase 141 units/L (55-170) 11/11/20 20:06 Troponin T < 0.010 ng/mL (0.00-0.029) 11/11/20 20:06 Total Protein 6.1 g/dL (6.3-8.2) L 11/11/20 20:06 Albumin 3.9 g/dL (3.9-5) 11/11/20 20:06 Albumin/Globulin Ratio 1.8 % 11/11/20 20:06 Vitamin B12 505.1 pg/mL (211-911) 11/12/20 17:54 TSH 1.280 mlU/mL (0.270-4.200) 11/12/20 17:54 Urine Color Yellow (Yellow) 11/12/20 01:12 Urine Turbidity Clear (Clear) 11/12/20 01:12 Urine pH 5.0 (5.0-7.0) 11/12/20 01:12 Ur Specific [place] 1.012 (1.003-1.030) 11/12/20 01:12 Urine Protein <15 mg/dl mg/dL (Negative) 11/12/20 01:12 Urine Glucose (UA) Neg mg/dL (Negative) 11/12/20 01:12 Urine Ketones Neg mg/dL (Negative) 11/12/20 01:12 Urine Blood Neg (Negative) 11/12/20 01:12 Urine Nitrite Neg (Negative) 11/12/20 01:12 Urine Bilirubin Neg (Negative) 11/12/20 01:12 Urine Urobilinogen < 2.0 mg/dL (<2.0) 11/12/20 01:12 Ur Leukocyte Esterase Neg (Negative) 11/12/20 01:12 Urine WBC (Auto) 1.0 /HPF (0.0-6.0) 11/12/20 01:12 Urine RBC (Auto) 1.0 /HPF (0.0-6.0) 11/12/20 01:12 Urine Mucus Few /HPF 11/12/20 01:12 Urine Osmolality 149 Mosm/kg 11/12/20 12:19 Salicylates < 0.3 mg/dL (2.8-20.0) L 11/11/20 20:06 Urine Opiates Screen Negative 11/12/20 12:19 Urine Methadone Screen Negative 11/12/20 12:19 Acetaminophen 5.0 ug/mL (10.0-30.0) L 11/11/20 20:06 Ur Barbiturates Screen Negative 11/12/20 12:19 Ur Phencyclidine Scrn Negative 11/12/20 12:19 Ur Amphetamines Screen Negative 11/12/20 12:19 U Benzodiazepines Scrn Negative 11/12/20 12:19 Urine Cocaine Screen Negative 11/12/20 12:19 U Marijuana (THC) Screen Negative 11/12/20 12:19 Drugs of Abuse Note Disclamer 11/12/20 12:19 Plasma/Serum Alcohol < 0.01 % (0-0.07) 11/11/20 20:06 Syphilis IgG Antibody Reactive (NonReactive) A 11/12/20 17:54 RPR Titer 1:8 11/12/20 17:54 HIV 1&2 Antibody Rapid Non react (Non React) 11/12/20 17:54 HIV P24 Antigen Non react (Non React) 11/12/20 17:54 Microbiology: Microbiology 11/11/20 01:12 Urine,Clean Catch Urine Culture - Final NO GROWTH AFTER 48 HOURS 11/11/20 20:06 Peripheral/Venous Blood Culture - Preliminary NO GROWTH AFTER 48 HOURS 11/11/20 20:13 Peripheral/Venous Blood Culture - Preliminary NO GROWTH AFTER 48 HOURS [place]/IV: Voiding Method Toilet Active Medications - Current Medications Current Medications: Generic Name Dose Route Start Last Admin Trade Name Freq PRN Reason Stop Dose Admin Acetaminophen 650 mg 11/12/20 02:41 Acetaminophen 325 Mg Tab PO Q4H PRN Pain MILD(1-3)/Fever >100.5/ALMENDAREZ Amlodipine Besylate 10 mg 11/12/20 10:00 11/14/20 10:13 Amlodipine 10 Mg Tab PO 10 mg QDAY GIULIA Administration Clonidine HCl 0.2 mg 11/12/20 11:00 11/12/20 11:07 Clonidine Tts 0.2 Mg/24 Hr Patch TD 0.2 mg Th GIULIA Administration Docusate Sodium 100 mg 11/12/20 10:00 11/14/20 10:12 Docusate Sodium 100 Mg Cap PO 100 mg BID GIULIA Administration Folic Acid 1 mg 11/12/20 10:00 11/14/20 10:13 Folic Acid 1 Mg Tab PO 1 mg QDAY GIULIA Administration Heparin Sodium (Porcine) 5,000 unit 11/12/20 10:00 11/14/20 10:14 Heparin 5,000 Unit/1 Ml Vial SUB-Q 5,000 unit Q12HR GIULIA Administration Penicillin G Potassium 4 mil. 50 mls @ 100 mls/hr 11/14/20 14:00 units/ Sodium Chloride IV 11/28/20 10:29 Q4HR GIULIA Lorazepam 2 mg 11/12/20 02:43 11/13/20 01:50 Lorazepam 2 Mg/Ml Vial IV 2 mg Q1H PRN Administration [facility] 8-15 Multivitamins 1 each 11/12/20 10:00 11/14/20 10:13 Multivitamins ,Therapeutic Tab PO 1 each QDAY GIULIA Administration Nicotine 14 mg 11/12/20 10:00 11/14/20 10:12 Nicotine 14 Mg/24 Hr Patch TD 14 mg QDAY GIULIA Administration Ondansetron HCl 4 mg 11/12/20 02:41 Ondansetron 4 Mg/2 Ml Inj IV Q8H PRN Nausea And Vomiting Sodium Chloride 10 ml 11/12/20 10:00 11/14/20 10:14 Sodium Chloride 0.9% 10 Ml Flush Syringe IV 10 ml BID GIULIA Administration Sodium Chloride 10 ml 11/12/20 02:41 11/12/20 05:39 Sodium Chloride 0.9% 10 Ml Flush Syringe IV 10 ml PRN PRN Administration LINE FLUSH Thiamine HCl 100 mg 11/12/20 10:00 11/14/20 10:12 Thiamine 100 Mg Tab PO 100 mg QDAY GIULIA Administration Nutrition/Malnutrition Assess - Dietary Evaluation Nutrition/Malnutrition Findings: Nutrition Notes Start: 11/12/20 09:53 Freq: Status: Active Protocol: Document 11/12/20 09:53 AT (Rec: 11/12/20 09:56 AT [id number]) Co-Sign 11/12/20 09:53 CW Nutrition Notes Need for Assessment generated from: MD Order Initial or Follow up Assessment Current Diagnosis Hypertension Other Pertinent Diagnosis AMS, Neuropathy, Depression, hx EtOH abuse, Metabolic Encephalopathy Current Diet Cardiac Diet Labs/Tests Na 127 Mg 1.2 Pertinent Medications D5NS at 100 mL/hr Thiamine HCl MVI Folic Acid Colace Height 5 ft 10 in Weight 74.843 kg [place] Body Weight (kg) 75.45 BMI 23.6 Weight Status Appropriate Subjective/Other Information Consult for ONS. Per RN, pt consumed 30% of breakfast. RN also reports pt appears "very thin" and is confused. Pt may be at nutritional risk given hx of EtOH abuse and poor consumptions currently. Economic Historian did not enter contact room and was unable to ascertain whether pt has visible signs of malnutrition. Burn Absent Trauma Absent Current % PO Poor (25-49%) Minimum of two criteria No physical signs of malnutrition #1 Nutrition Diagnosis Inadequate oral intake Etiology AMS As Evidenced by Signs and Symptoms pt consuming 30% of breakfast Is patient on ventilator? No Is Patient Ambulatory and/or Out of Bed No REE-([facility]-confined to bed) [phone] Calculation [facility] Additional Notes PRO needs: 60-75g (0.8-1g/kg) Fluid needs: 1mL/kcal or per MD Nutrition Intervention Change Diet Order: Continue diet as ordered Add Supplement/Snack (indicate name/kcal Ensure Enlive BID /protein ) Provides kCal: 700 Provides Protein (gm) 40 Goal #1 Meet at least 75% of EER and protein needs via diet and ONS Anticipated Discharge Needs: Cardiac diet with ONS PRN Follow-Up By: 11/16/20 Additional Comments F/U for stable intakes and ONS tolerance
[2020-11-15] MEDS: PENICILLIN G POTASSIUM 4 MIL.UNITS in SODIUM CHLORIDE 0.9% 50 ML IV SCH ×6 (02:59→21:17)
[2020-11-15] MEDS: LORazepam 2 MG/ML VIAL IV PRN ×2 (02:59→21:17)
--- NOTE | 2020-11-15 08:35 | Progress Note ---
Assessment and Plan Assessment and plan: 59-year-old -[place] male who presents with acute encephalopathy Acute encephalopathy, resolved -CT head negative MRI of the brain normal -Blood cultures no growth to date -Neuro consult, recommendations noted, pending EEG Syphilis infection Infectious disease consulted Patient declines LP to rule out neurosyphilis Continue treatment with IV penicillin for 14 days per recommendations of ID Patient is self-pay, most likely will not be able to go to rehab to continue p enicillin infusions due to lack of insurance Hyponatremia -Na on [id number] -Slowly correct Na with IVF Resolved with fluids Continue to monitor patient's sodium to determine if he needs salt tabs. Patient seems to be eating at this time Macrocytic anemia secondary to alcohol use B12 normal EtOH Abuse -Last drink 11/11/20 [facility] protocol - Thiamine and Folic Acid No signs of alcohol withdrawal Tobacco abuse -Current every day smoker -Counseled for cessation -Nicotine patch when necessary HTN -Monitor BP -Resume home hypertensive meds Severe protein caloric malnutrition secondary to alcohol use Dietary supplements DVT PPX: Heparin CODE STATUS: Full Disposition: Continue treatment for syphilis, patient will need continued treatment for syphilis, however patient is not able to go to rehab due to self- pay status. History Interval history: 11/13 patient with no confusion, states that he has no pain. No fevers or chills. Patient states that he feels weak when he walks. 11/14: Patient without any complaints, lying in bed, ate breakfast. No fevers or chills. 11/15: Patient was confused last night but seems to be at his baseline mentation this morning. Patient without any fevers or chills. No complaints. Hospitalist Physical - Physical exam Narrative exam: General appearance no acute distress, cachectic EENT: PERRL, EOM intact, hearing intact, clear oral mucosa, dentition normal Neck: Present: supple, normal ROM Respiratory: bilateral: CTA, negative: rales, rhonchi, wheezing Cardiovascular: Regular rate/rhythm, Normal S1 & S2. No gallop, rub Extremities: no ischemia, No edema, normal temperature, normal color, Full ROM Abdominal: soft, non-tender, non-distended, normal bowel sounds Integumentary: Present: clear, warm, dry Psychiatric: appropriate mood/affect, intact judgment & insight Neurologic: CNII-XII intact, moves all extremities, no tremors in upper extremities - Constitutional Vitals: Temp Pulse Resp BP Pulse Ox 97.3 F L 70 18 140/98 98 11/15/20 06:49 11/15/20 06:49 11/15/20 06:49 11/15/20 06:49 11/15/20 06:49 HEART Score - HEART Score Troponin: Troponin T < 0.010 ng/mL (0.00-0.029) 11/11/20 20:06 Results - Labs CBC & Chem 7: 11/13/20 07:18 11/14/20 06:30 Labs: Laboratory Last Values WBC 7.6 K/mm3 (4.5-11.0) 11/13/20 07:18 RBC 3.11 M/mm3 (3.65-5.03) L 11/13/20 07:18 Hgb 10.8 gm/dl (11.8-15.2) L 11/13/20 07:18 Hct 31.8 % (35.5-45.6) L 11/13/20 07:18 MCV 102 fl (84-94) H 11/13/20 07:18 MCH 35 pg (28-32) H 11/13/20 07:18 MCHC 34 % (32-34) 11/13/20 07:18 RDW 13.5 % (13.2-15.2) 11/13/20 07:18 Plt Count 242 K/mm3 (140-440) 11/13/20 07:18 Lymph % (Auto) 10.8 % (13.4-35.0) L 11/13/20 07:18 [place] % (Auto) 10.9 % (0.0-7.3) H 11/13/20 07:18 Eos % (Auto) 1.8 % (0.0-4.3) 11/13/20 07:18 Baso % (Auto) 0.4 % (0.0-1.8) 11/13/20 07:18 Lymph # (Auto) 0.8 K/mm3 (1.2-5.4) L 11/13/20 07:18 [place] # (Auto) 0.8 K/mm3 (0.0-0.8) 11/13/20 07:18 Eos # (Auto) 0.1 K/mm3 (0.0-0.4) 11/13/20 07:18 Baso # (Auto) 0.0 K/mm3 (0.0-0.1) 11/13/20 07:18 Seg Neutrophils % 76.1 % (40.0-70.0) H 11/13/20 07:18 Seg Neutrophils # 5.8 K/mm3 (1.8-7.7) 11/13/20 07:18 PT 12.7 Sec. (12.2-14.9) 11/11/20 20:06 INR 0.96 (0.87-1.13) 11/11/20 20:06 APTT 30.5 Sec. (24.2-36.6) 11/11/20 20:06 Sodium 135 mmol/L (137-145) L 11/14/20 06:30 Potassium 3.9 mmol/L (3.6-5.0) 11/14/20 06:30 Chloride 99.0 mmol/L (98-107) 11/14/20 06:30 Carbon Dioxide 26 mmol/L (22-30) 11/14/20 06:30 Anion Gap 14 mmol/L 11/14/20 06:30 BUN 13 mg/dL (9-20) 11/14/20 06:30 Creatinine 0.7 mg/dL (0.8-1.3) L 11/14/20 06:30 Estimated GFR > 60 ml/min 11/14/20 06:30 BUN/Creatinine Ratio 19 % 11/14/20 06:30 Glucose 97 mg/dL (75-100) 11/14/20 06:30 Hemoglobin A1c 4.7 % (4-6) 11/12/20 02:58 Osmolality 268 Mosm/kg 11/12/20 02:58 Lactic Acid 1.00 mmol/L (0.7-2.0) 11/11/20 20:06 Calcium 8.5 mg/dL (8.4-10.2) 11/14/20 06:30 Phosphorus 3.30 mg/dL (2.5-4.5) 11/12/20 02:58 Magnesium 1.20 mg/dL (1.7-2.3) L 11/12/20 02:58 Ferritin 272.0 ng/mL (30.0-300.0) 11/12/20 06:42 Total Bilirubin 0.30 mg/dL (0.1-1.2) 11/11/20 20:06 AST 29 units/L (5-40) 11/11/20 20:06 ALT 27 units/L (7-56) 11/11/20 20:06 Alkaline Phosphatase 85 units/L (35-129) 11/11/20 20:06 Ammonia 38.0 umol/L (25-60) 11/11/20 20:06 Total Creatine Kinase 141 units/L (55-170) 11/11/20 20:06 Troponin T < 0.010 ng/mL (0.00-0.029) 11/11/20 20:06 Total Protein 6.1 g/dL (6.3-8.2) L 11/11/20 20:06 Albumin 3.9 g/dL (3.9-5) 11/11/20 20:06 Albumin/Globulin Ratio 1.8 % 11/11/20 20:06 Vitamin B12 505.1 pg/mL (211-911) 11/12/20 17:54 TSH 1.280 mlU/mL (0.270-4.200) 11/12/20 17:54 Urine Color Yellow (Yellow) 11/12/20 01:12 Urine Turbidity Clear (Clear) 11/12/20 01:12 Urine pH 5.0 (5.0-7.0) 11/12/20 01:12 Ur Specific [place] 1.012 (1.003-1.030) 11/12/20 01:12 Urine Protein <15 mg/dl mg/dL (Negative) 11/12/20 01:12 Urine Glucose (UA) Neg mg/dL (Negative) 11/12/20 01:12 Urine Ketones Neg mg/dL (Negative) 11/12/20 01:12 Urine Blood Neg (Negative) 11/12/20 01:12 Urine Nitrite Neg (Negative) 11/12/20 01:12 Urine Bilirubin Neg (Negative) 11/12/20 01:12 Urine Urobilinogen < 2.0 mg/dL (<2.0) 11/12/20 01:12 Ur Leukocyte Esterase Neg (Negative) 11/12/20 01:12 Urine WBC (Auto) 1.0 /HPF (0.0-6.0) 11/12/20 01:12 Urine RBC (Auto) 1.0 /HPF (0.0-6.0) 11/12/20 01:12 Urine Mucus Few /HPF 11/12/20 01:12 Urine Osmolality 149 Mosm/kg 11/12/20 12:19 Salicylates < 0.3 mg/dL (2.8-20.0) L 11/11/20 20:06 Urine Opiates Screen Negative 11/12/20 12:19 Urine Methadone Screen Negative 11/12/20 12:19 Acetaminophen 5.0 ug/mL (10.0-30.0) L 11/11/20 20:06 Ur Barbiturates Screen Negative 11/12/20 12:19 Ur Phencyclidine Scrn Negative 11/12/20 12:19 Ur Amphetamines Screen Negative 11/12/20 12:19 U Benzodiazepines Scrn Negative 11/12/20 12:19 Urine Cocaine Screen Negative 11/12/20 12:19 U Marijuana (THC) Screen Negative 11/12/20 12:19 Drugs of Abuse Note Disclamer 11/12/20 12:19 Plasma/Serum Alcohol < 0.01 % (0-0.07) 11/11/20 20:06 Syphilis IgG Antibody Reactive (NonReactive) A 11/12/20 17:54 RPR Titer 1:8 11/12/20 17:54 Coronavirus (PCR) Negative (Negative) 11/14/20 Unknown HIV 1&2 Antibody Rapid Non react (Non React) 11/12/20 17:54 HIV P24 Antigen Non react (Non React) 11/12/20 17:54 Microbiology: Microbiology 11/11/20 20:06 Peripheral/Venous Blood Culture - Preliminary NO GROWTH AFTER 72 HOURS 11/11/20 20:13 Peripheral/Venous Blood Culture - Preliminary NO GROWTH AFTER 72 HOURS 11/11/20 01:12 Urine,Clean Catch Urine Culture - Final NO GROWTH AFTER 48 HOURS [place]/IV: Voiding Method Toilet Active Medications - Current Medications Current Medications: Generic Name Dose Route Start Last Admin Trade Name Freq PRN Reason Stop Dose Admin Acetaminophen 650 mg 11/12/20 02:41 Acetaminophen 325 Mg Tab PO Q4H PRN Pain MILD(1-3)/Fever >100.5/ALMENDAREZ Amlodipine Besylate 10 mg 11/12/20 10:00 11/14/20 10:13 Amlodipine 10 Mg Tab PO 10 mg QDAY GIULIA Administration Clonidine HCl 0.2 mg 11/12/20 11:00 11/12/20 11:07 Clonidine Tts 0.2 Mg/24 Hr Patch TD 0.2 mg Th GIULIA Administration Docusate Sodium 100 mg 11/12/20 10:00 11/14/20 22:27 Docusate Sodium 100 Mg Cap PO 100 mg BID GIULIA Administration Folic Acid 1 mg 11/12/20 10:00 11/14/20 10:13 Folic Acid 1 Mg Tab PO 1 mg QDAY GIULIA Administration Heparin Sodium (Porcine) 5,000 unit 11/12/20 10:00 11/14/20 22:27 Heparin 5,000 Unit/1 Ml Vial SUB-Q 5,000 unit Q12HR GIULIA Administration Penicillin G Potassium 4 mil. 50 mls @ 100 mls/hr 11/14/20 14:00 11/15/20 05:11 units/ Sodium Chloride IV 11/28/20 10:29 100 mls/hr Q4HR GIULIA Administration Lorazepam 2 mg 11/12/20 02:43 11/15/20 02:59 Lorazepam 2 Mg/Ml Vial IV 2 mg Q1H PRN [facility] Multivitamins 1 each 11/12/20 10:00 11/14/20 10:13 Multivitamins ,Therapeutic Tab PO 1 each QDAY GIULIA Administration Nicotine 14 mg 11/12/20 10:00 11/14/20 10:12 Nicotine 14 Mg/24 Hr Patch TD 14 mg QDAY GIULIA Administration Ondansetron HCl 4 mg 11/12/20 02:41 Ondansetron 4 Mg/2 Ml Inj IV Q8H PRN Nausea And Vomiting Sodium Chloride 10 ml 11/12/20 10:00 11/14/20 22:28 Sodium Chloride 0.9% 10 Ml Flush Syringe IV 10 ml BID GIULIA Administration Sodium Chloride 10 ml 11/12/20 02:41 11/12/20 05:39 Sodium Chloride 0.9% 10 Ml Flush Syringe IV 10 ml PRN PRN Administration LINE FLUSH Thiamine HCl 100 mg 11/12/20 10:00 11/14/20 10:12 Thiamine 100 Mg Tab PO 100 mg QDAY GIULIA Administration Nutrition/Malnutrition Assess - Dietary Evaluation Nutrition/Malnutrition Findings: Nutrition Notes Start: 11/12/20 09:53 Freq: Status: Active Protocol: Document 11/12/20 09:53 AT (Rec: 11/12/20 09:56 AT [id number]) Co-Sign 11/12/20 09:53 CW Nutrition Notes Need for Assessment generated from: MD Order Initial or Follow up Assessment Current Diagnosis Hypertension Other Pertinent Diagnosis AMS, Neuropathy, Depression, hx EtOH abuse, Metabolic Encephalopathy Current Diet Cardiac Diet Labs/Tests Na 127 Mg 1.2 Pertinent Medications D5NS at 100 mL/hr Thiamine HCl MVI Folic Acid Colace Height 5 ft 10 in Weight 74.843 kg [place] Body Weight (kg) 75.45 BMI 23.6 Weight Status Appropriate Subjective/Other Information Consult for ONS. Per RN, pt consumed 30% of breakfast. RN also reports pt appears "very thin" and is confused. Pt may be at nutritional risk given hx of EtOH abuse and poor consumptions currently. [employer] did not enter contact room and was unable to ascertain whether pt has visible signs of malnutrition. Burn Absent Trauma Absent Current % PO Poor (25-49%) Minimum of two criteria No physical signs of malnutrition #1 Nutrition Diagnosis Inadequate oral intake Etiology AMS As Evidenced by Signs and Symptoms pt consuming 30% of breakfast Is patient on ventilator? No Is Patient Ambulatory and/or Out of Bed No REE-([place]-confined to bed) 1826.572 Calculation Used for Recommendations [place] Additional Notes PRO needs: 60-75g (0.8-1g/kg) Fluid needs: 1mL/kcal or per MD Nutrition Intervention Change Diet Order: Continue diet as ordered Add Supplement/Snack (indicate name/kcal Ensure Enlive BID /protein ) Provides kCal: 700 Provides Protein (gm) 40 Goal #1 Meet at least 75% of EER and protein needs via diet and ONS Anticipated Discharge Needs: Cardiac diet with ONS PRN Follow-Up By: 11/16/20 Additional Comments F/U for stable intakes and ONS tolerance
[2020-11-15] MEDS: FOLIC ACID 1 MG TAB PO SCH (09:06)
[2020-11-15] MEDS: HEPARIN 5,000 UNIT/1 ML VIAL SUB-Q SCH ×2 (09:06→21:17)
[2020-11-15] MEDS: DOCUSATE SODIUM 100 MG CAP PO SCH ×2 (09:06→21:17)
[2020-11-15] MEDS: MULTIVITAMINS ,THERAPEUTIC TAB PO SCH (09:06)
[2020-11-15] MEDS: amLODIPine 10 MG TAB PO SCH (09:06)
[2020-11-15] MEDS: NICOTINE 14 MG/24 HR PATCH TD SCH (09:07)
[2020-11-15] MEDS: THIAMINE 100 MG TAB PO SCH (09:23)
--- NOTE | 2020-11-15 10:08 | Event Note ---
Date: 11/15/[address] Gonzáles, limited options for patient's treatment of possible neurosyphilis. Ideally, need to continue IV penicillin for 14 days as continuous infusion. That is new literature with high-dose p.o. doxycycline 200 mg twice daily for 4 weeks for the treatment of early neurosyphilis, however, probably not an ideal option in this patient with compliance issues.
[2020-11-16] MEDS: PENICILLIN G POTASSIUM 4 MIL.UNITS in SODIUM CHLORIDE 0.9% 50 ML IV SCH ×6 (01:26→21:49)
[2020-11-16 06:46] LABS: Hemoglobin 10.1 gm/dl (11.8-15.2); Mean Corpuscular HGB Conc 34 % (32-34); Mean Corpuscular Volume 102 fl (84-94); Platelet Count 216 K/mm3 (140-440); Red Blood Count 2.94 M/mm3 (3.65-5.03)
[2020-11-16 08:27] LABS: Blood Urea Nitrogen 12 mg/dL (9-20); Calcium 8.9 mg/dL (8.4-10.2); Hemolysis Index 2
[2020-11-16 08:34] LABS: BUN/Creatinine Ratio 17
[2020-11-16] MEDS: DOCUSATE SODIUM 100 MG CAP PO SCH ×2 (10:04→21:49)
[2020-11-16] MEDS: MULTIVITAMINS ,THERAPEUTIC TAB PO SCH (10:04)
[2020-11-16] MEDS: HEPARIN 5,000 UNIT/1 ML VIAL SUB-Q SCH ×2 (10:05→21:49)
[2020-11-16] MEDS: THIAMINE 100 MG TAB PO SCH (10:05)
[2020-11-16] MEDS: amLODIPine 10 MG TAB PO SCH (10:05)
[2020-11-16] MEDS: FOLIC ACID 1 MG TAB PO SCH (10:05)
[2020-11-16] MEDS: NICOTINE 14 MG/24 HR PATCH TD SCH (10:11)
--- NOTE | 2020-11-16 13:45 | Progress Note ---
Assessment and Plan Assessment and plan: 59-year-old -[place]ic male who presents with acute encephalopathy Acute encephalopathy, resolved -CT head negative MRI of the brain normal -Blood cultures no growth to date -Neuro consult, recommendations noted, pending EEG Syphilis infection Infectious disease consulted Patient declines LP to rule out neurosyphilis Continue treatment with IV penicillin for 14 days per recommendations of ID Hyponatremia -Na on [id number] -Slowly correct Na with IVF Resolved with fluids Continue to monitor patient's sodium to determine if he needs salt tabs. Patient seems to be eating at this time Macrocytic anemia secondary to alcohol use B12 normal EtOH Abuse -Last drink 11/11/20 [facility] protocol - Thiamine and Folic Acid No signs of alcohol withdrawal Tobacco abuse -Current every day smoker -Counseled for cessation -Nicotine patch when necessary HTN -Monitor BP -Resume home hypertensive meds Severe protein caloric malnutrition secondary to alcohol use Dietary supplements DVT PPX: Heparin CODE STATUS: Full Disposition: Continue treatment for syphilis, continuous infusion of penicillin per ID recommendations. History Interval history: 11/13 patient with no confusion, states that he has no pain. No fevers or chills. Patient states that he feels weak when he walks. 11/14: Patient without any complaints, lying in bed, ate breakfast. No fevers or chills. 11/15: Patient was confused last night but seems to be at his baseline mentation this morning. Patient without any fevers or chills. No complaints. 11/16: Patient doing well, no complaints. Continue syphilis treatment. Spoke with case management pertaining to long-term IV antibiotics continues infusion per ID recommendations. Hospitalist Physical - Physical exam Narrative exam: General appearance no acute distress, cachectic EENT: PERRL, EOM intact, hearing intact, clear oral mucosa, dentition normal Neck: Present: supple, normal ROM Respiratory: bilateral: CTA, negative: rales, rhonchi, wheezing Cardiovascular: Regular rate/rhythm, Normal S1 & S2. No gallop, rub Extremities: no ischemia, No edema, normal temperature, normal color, Full ROM Abdominal: soft, non-tender, non-distended, normal bowel sounds Integumentary: Present: clear, warm, dry Psychiatric: appropriate mood/affect, intact judgment & insight Neurologic: CNII-XII intact, moves all extremities, no tremors in upper ext remities - Constitutional Vitals: Temp Pulse Resp BP Pulse Ox 98.3 F 94 H 16 131/91 100 11/16/20 10:04 11/16/20 10:05 11/16/20 10:04 11/16/20 10:05 11/16/20 10:04 HEART Score - HEART Score Troponin: Troponin T < 0.010 ng/mL (0.00-0.029) 11/11/20 20:06 Results - Labs CBC & Chem 7: 11/16/20 06:15 11/16/20 06:15 Labs: Laboratory Last Values WBC 5.6 K/mm3 (4.5-11.0) 11/16/20 06:15 RBC 2.94 M/mm3 (3.65-5.03) L 11/16/20 06:15 Hgb 10.1 gm/dl (11.8-15.2) L 11/16/20 06:15 Hct 30.0 % (35.5-45.6) L 11/16/20 06:15 MCV 102 fl (84-94) H 11/16/20 06:15 MCH 35 pg (28-32) H 11/16/20 06:15 MCHC 34 % (32-34) 11/16/20 06:15 RDW 14.0 % (13.2-15.2) 11/16/20 06:15 Plt Count 216 K/mm3 (140-440) 11/16/20 06:15 Lymph % (Auto) 10.8 % (13.4-35.0) L 11/13/20 07:18 [place] % (Auto) 10.9 % (0.0-7.3) H 11/13/20 07:18 Eos % (Auto) 1.8 % (0.0-4.3) 11/13/20 07:18 Baso % (Auto) 0.4 % (0.0-1.8) 11/13/20 07:18 Lymph # (Auto) 0.8 K/mm3 (1.2-5.4) L 11/13/20 07:18 [place] # (Auto) 0.8 K/mm3 (0.0-0.8) 11/13/20 07:18 Eos # (Auto) 0.1 K/mm3 (0.0-0.4) 11/13/20 07:18 Baso # (Auto) 0.0 K/mm3 (0.0-0.1) 11/13/20 07:18 Seg Neutrophils % 76.1 % (40.0-70.0) H 11/13/20 07:18 Seg Neutrophils # 5.8 K/mm3 (1.8-7.7) 11/13/20 07:18 PT 12.7 Sec. (12.2-14.9) 11/11/20 20:06 INR 0.96 (0.87-1.13) 11/11/20 20:06 APTT 30.5 Sec. (24.2-36.6) 11/11/20 20:06 Sodium 133 mmol/L (137-145) L 11/16/20 06:15 Potassium 4.4 mmol/L (3.6-5.0) 11/16/20 06:15 Chloride 95.7 mmol/L (98-107) L 11/16/20 06:15 Carbon Dioxide 29 mmol/L (22-30) 11/16/20 06:15 Anion Gap 13 mmol/L 11/16/20 06:15 BUN 12 mg/dL (9-20) 11/16/20 06:15 Creatinine 0.7 mg/dL (0.8-1.3) L 11/16/20 06:15 Estimated GFR > 60 ml/min 11/16/20 06:15 BUN/Creatinine Ratio 17 % 11/16/20 06:15 Glucose 97 mg/dL (75-100) 11/16/20 06:15 Hemoglobin A1c 4.7 % (4-6) 11/12/20 02:58 Osmolality 268 Mosm/kg 11/12/20 02:58 Lactic Acid 1.00 mmol/L (0.7-2.0) 11/11/20 20:06 Calcium 8.9 mg/dL (8.4-10.2) 11/16/20 06:15 Phosphorus 3.30 mg/dL (2.5-4.5) 11/12/20 02:58 Magnesium 1.20 mg/dL (1.7-2.3) L 11/12/20 02:58 Ferritin 272.0 ng/mL (30.0-300.0) 11/12/20 06:42 Total Bilirubin 0.30 mg/dL (0.1-1.2) 11/11/20 20:06 AST 29 units/L (5-40) 11/11/20 20:06 ALT 27 units/L (7-56) 11/11/20 20:06 Alkaline Phosphatase 85 units/L (35-129) 11/11/20 20:06 Ammonia 38.0 umol/L (25-60) 11/11/20 20:06 Total Creatine Kinase 141 units/L (55-170) 11/11/20 20:06 Troponin T < 0.010 ng/mL (0.00-0.029) 11/11/20 20:06 Total Protein 6.1 g/dL (6.3-8.2) L 11/11/20 20:06 Albumin 3.9 g/dL (3.9-5) 11/11/20 20:06 Albumin/Globulin Ratio 1.8 % 11/11/20 20:06 Vitamin B12 505.1 pg/mL (211-911) 11/12/20 17:54 TSH 1.280 mlU/mL (0.270-4.200) 11/12/20 17:54 Urine Color Yellow (Yellow) 11/12/20 01:12 Urine Turbidity Clear (Clear) 11/12/20 01:12 Urine pH 5.0 (5.0-7.0) 11/12/20 01:12 Ur Specific [place] 1.012 (1.003-1.030) 11/12/20 01:12 Urine Protein <15 mg/dl mg/dL (Negative) 11/12/20 01:12 Urine Glucose (UA) Neg mg/dL (Negative) 11/12/20 01:12 Urine Ketones Neg mg/dL (Negative) 11/12/20 01:12 Urine Blood Neg (Negative) 11/12/20 01:12 Urine Nitrite Neg (Negative) 11/12/20 01:12 Urine Bilirubin Neg (Negative) 11/12/20 01:12 Urine Urobilinogen < 2.0 mg/dL (<2.0) 11/12/20 01:12 Ur Leukocyte Esterase Neg (Negative) 11/12/20 01:12 Urine WBC (Auto) 1.0 /HPF (0.0-6.0) 11/12/20 01:12 Urine RBC (Auto) 1.0 /HPF (0.0-6.0) 11/12/20 01:12 Urine Mucus Few /HPF 11/12/20 01:12 Urine Osmolality 149 Mosm/kg 11/12/20 12:19 Salicylates < 0.3 mg/dL (2.8-20.0) L 11/11/20 20:06 Urine Opiates Screen Negative 11/12/20 12:19 Urine Methadone Screen Negative 11/12/20 12:19 Acetaminophen 5.0 ug/mL (10.0-30.0) L 11/11/20 20:06 Ur Barbiturates Screen Negative 11/12/20 12:19 Ur Phencyclidine Scrn Negative 11/12/20 12:19 Ur Amphetamines Screen Negative 11/12/20 12:19 U Benzodiazepines Scrn Negative 11/12/20 12:19 Urine Cocaine Screen Negative 11/12/20 12:19 U Marijuana (THC) Screen Negative 11/12/20 12:19 Drugs of Abuse Note Disclamer 11/12/20 12:19 Plasma/Serum Alcohol < 0.01 % (0-0.07) 11/11/20 20:06 Syphilis IgG Antibody Reactive (NonReactive) A 11/12/20 17:54 RPR Titer 1:8 11/12/20 17:54 Coronavirus (PCR) Negative (Negative) 11/14/20 Unknown HIV 1&2 Antibody Rapid Non react (Non React) 11/12/20 17:54 HIV P24 Antigen Non react (Non React) 11/12/20 17:54 Microbiology: Microbiology 11/11/20 20:06 Peripheral/Venous Blood Culture - Preliminary NO GROWTH AFTER 4 DAYS 11/11/20 20:13 Peripheral/Venous Blood Culture - Preliminary NO GROWTH AFTER 4 DAYS [place]/IV: Voiding Method Toilet Active Medications - Current Medications Current Medications: Generic Name Dose Route Start Last Admin Trade Name Freq PRN Reason Stop Dose Admin Acetaminophen 650 mg 11/12/20 02:41 Acetaminophen 325 Mg Tab PO Q4H PRN Pain MILD(1-3)/Fever >100.5/ALMENDAREZ Amlodipine Besylate 10 mg 11/12/20 10:00 11/16/20 10:05 Amlodipine 10 Mg Tab PO 10 mg QDAY GIULIA Administration Clonidine HCl 0.2 mg 11/12/20 11:00 11/12/20 11:07 Clonidine Tts 0.2 Mg/24 Hr Patch TD 0.2 mg Th GIULIA Administration Docusate Sodium 100 mg 11/12/20 10:00 11/16/20 10:04 Docusate Sodium 100 Mg Cap PO 100 mg BID GIULIA Administration Folic Acid 1 mg 11/12/20 10:00 11/16/20 10:05 Folic Acid 1 Mg Tab PO 1 mg QDAY GIULIA Administration Heparin Sodium (Porcine) 5,000 unit 11/12/20 10:00 11/16/20 10:05 Heparin 5,000 Unit/1 Ml Vial SUB-Q 5,000 unit Q12HR GIULIA Administration Penicillin G Potassium 4 mil. 50 mls @ 100 mls/hr 11/14/20 14:00 11/16/20 10:00 units/ Sodium Chloride IV 11/28/20 10:29 100 mls/hr Q4HR GIULIA Administration Lorazepam 2 mg 11/12/20 02:43 11/15/20 21:17 Lorazepam 2 Mg/Ml Vial IV 2 mg Q1H PRN Administration [facility] 8-15 Multivitamins 1 each 11/12/20 10:00 11/16/20 10:04 Multivitamins ,Therapeutic Tab PO 1 each QDAY GIULIA Administration Nicotine 14 mg 11/12/20 10:00 11/16/20 10:11 Nicotine 14 Mg/24 Hr Patch TD 14 mg QDAY GIULIA Administration Ondansetron HCl 4 mg 11/12/20 02:41 Ondansetron 4 Mg/2 Ml Inj IV Q8H PRN Nausea And Vomiting Sodium Chloride 10 ml 11/12/20 10:00 11/16/20 10:14 Sodium Chloride 0.9% 10 Ml Flush Syringe IV 10 ml BID GIULIA Administration Sodium Chloride 10 ml 11/12/20 02:41 11/12/20 05:39 Sodium Chloride 0.9% 10 Ml Flush Syringe IV 10 ml PRN PRN Administration LINE FLUSH Thiamine HCl 100 mg 11/12/20 10:00 11/16/20 10:05 Thiamine 100 Mg Tab PO 100 mg QDAY GIULIA Administration Nutrition/Malnutrition Assess - Dietary Evaluation Nutrition/Malnutrition Findings: Nutrition Notes Start: 11/12/20 09:53 Freq: Status: Active Protocol: Document 11/16/20 09:12 EVAN (Rec: 11/16/20 09:15 EVAN [id number]) Nutrition Notes Initial or Follow up Reassessment Current Diagnosis Hypertension Other Pertinent Diagnosis AMS, Neuropathy, Depression, hx EtOH abuse, Metabolic Encephalopathy Current Diet Cardiac Diet Labs/Tests Na 133 Pertinent Medications Reviewed Height 5 ft 10 in Weight 78.84 kg [place] Body Weight (kg) 75.45 BMI 24.9 Weight Status Appropriate Subjective/Other Information FU for intakes. Pt reports enjoying the ONS and would like to continue both of them. Pt eating 100% of meals. Percent of energy/protein needs met: 100%/100% Burn Absent Trauma Absent Current % PO Good (75-100%) Minimum of two criteria No physical signs of malnutrition #1 Nutrition Diagnosis Inadequate oral intake As Evidenced by Signs and Symptoms pt eating 100% of meals Diagnosis Progress(for reassessment Resolved documentation) Is patient on ventilator? No Is Patient Ambulatory and/or Out of Bed No REE-([place]-[facility]-confined to bed) 7426.556 Calculation [facility] Additional Notes PRO needs: 60-75g (0.8-1g/kg) Fluid needs: 1mL/kcal or per MD Nutrition Intervention Change Diet Order: Continue Add Supplement/Snack (indicate name/kcal Ensure Enlive BID /protein ) Provides kCal: 700 Provides Protein (gm) 40 Goal #1 Meet at least 75% of EER and protein needs via diet and ONS Anticipated Discharge Needs: Cardiac diet Follow-Up By: 11/20/20 Additional Comments FU for stable intakes and ONS tolerance
--- NOTE | 2020-11-16 17:08 | Progress Note ---
Assessment and Plan Cultures: Blood culture: No growth Syphilis IgG and RPR positive with titer of 1:8 HIV negative A/P: 59-year-old male with alcohol, tobacco abuse admitted with encephalopathy and bizarre behavior: #Syphilis: Late latent versus neurosyphilis. Patient declines LP. HIV negative. #Acute encephalopathy: Related to syphilis versus hyponatremia, improving Recs: -Declined LP, hence best to treat as neurosyphilis -IV penicillin G 4 million units q4 hrs or 20 million units as continuous i nfusion daily for 14 days ending 11/28/2020 -midline ordered -CM orders placed, considering his mental issues as well as his living conditions, may be best to get IV penicillin at a rehab facility -Ideally, need to continue IV penicillin for 14 days as continuous infusion Carissa Palencia MD [facility] ([facility]) Office [phone] Subjective Date of service: 11/16/20 Principal diagnosis: Syphilis Interval history: Patient feels better. Alert, following commands, had lots of questions. Objective - Exam Narrative Exam: General appearance: Alert in NAD pleasant Eyes: anicteric sclerae, moist conjunctivae; no lid-lag; PERRLA HENT: Normocephalic, Atraumatic; normal external ears, nares open, oropharynx clear Neck: supple, tracheal midline, no JVD Lungs: CTA, with normal respiratory effort and no intercostal retractions CV: RRR no murmur Abdomen: Soft, non-tender; no masses or hepatosplenomegaly Extremities: no edema, no cyanosis Skin: No rash. Psych: no agitated Neuro: alert and oriented x 3. Moving all extermities - Constitutional Vitals: Vital Signs Temp Pulse Resp BP Pulse Ox 98.3 F 94 H 16 131/91 100 11/16/20 10:04 11/16/20 10:05 11/16/20 10:04 11/16/20 10:05 11/16/20 10:04 Temperature -Last 24 Hours Temperature 98.3 F Temperature 98.1 F Temperature 97.9 F Temperature 98.2 F - Labs CBC & Chem 7: 11/16/20 06:15 11/16/20 06:15 Labs: Abnormal lab results 11/16/20 11/16/20 Range/Units 06:15 06:15 RBC 2.94 L (3.65-5.03) M/mm3 Hgb 10.1 L (11.8-15.2) gm/dl Hct 30.0 L (35.5-45.6) % MCV 102 H (84-94) fl MCH 35 H (28-32) pg Sodium 133 L (137-145) mmol/L Chloride 95.7 L (98-107) mmol/L Creatinine 0.7 L (0.8-1.3) mg/dL
[2020-11-17] MEDS: PENICILLIN G POTASSIUM 4 MIL.UNITS in SODIUM CHLORIDE 0.9% 50 ML IV SCH ×6 (01:42→21:46)
[2020-11-17] MEDS: ACETAMINOPHEN 325 MG TAB PO PRN (01:45)
[2020-11-17 07:55] LABS: Hematocrit 30.9 % (35.5-45.6); Hemoglobin 10.8 gm/dl (11.8-15.2); Mean Corpuscular HGB Conc 35 % (32-34); Mean Corpuscular Volume 100 fl (84-94); Platelet Count 239 K/mm3 (140-440); Red Blood Count 3.08 M/mm3 (3.65-5.03); Red Cell Distribution Width 13.8 % (13.2-15.2)
[2020-11-17 08:08] LABS: Blood Urea Nitrogen 13 mg/dL (9-20); Calcium 8.6 mg/dL (8.4-10.2); Hemolysis Index 37
[2020-11-17 08:25] LABS: BUN/Creatinine Ratio 22
--- NOTE | 2020-11-17 09:35 | Progress Note ---
Assessment and Plan Assessment and plan: Syphilis. Late latent versus neurosyphilis. Toxic metabolic encephalopathy. Etiology secondary to sepsis versus hyponatremia. 11/17/2020. Patient reportedly declined LP. ID started penicillin G 4,000,000 units every 4 hours or 20,000,000 units as continuous infusion daily for 14 days ending on 11/28. Midline ordered. Will discuss with case management possibility of patient receiving IV penicillin in a rehab facility versus LTAC. However, patient unfunded. History Interval history: Patient confused. No new issues overnight. Hospitalist Physical - Constitutional Vitals: Temp Pulse Resp BP Pulse Ox 97.3 F L 76 20 144/90 99 11/17/20 05:52 11/17/20 05:52 11/17/20 05:52 11/17/20 05:52 11/17/20 05:52 General appearance: Present: no acute distress, well-nourished - EENT Eyes: Present: PERRL, EOM intact ENT: hearing intact, clear oral mucosa, dentition normal - Neck Neck: Present: supple, normal ROM - Respiratory Respiratory effort: normal Respiratory: bilateral: CTA - Cardiovascular Rhythm: regular Heart Sounds: Present: S1 & S2. Absent: gallop, rub - Extremities Extremities: no ischemia, No edema, Full ROM - Abdominal General gastrointestinal: soft, non-tender, non-distended, normal bowel sounds - Integumentary Integumentary: Present: clear, warm, dry - Neurologic Neurologic: CNII-XII intact, moves all extremities HEART Score - HEART Score Troponin: Troponin T < 0.010 ng/mL (0.00-0.029) 11/11/20 20:06 Results - Labs CBC & Chem 7: 11/17/20 07:28 11/17/20 07:28 Labs: Laboratory Last Values WBC 5.4 K/mm3 (4.5-11.0) 11/17/20 07:28 RBC 3.08 M/mm3 (3.65-5.03) L 11/17/20 07:28 Hgb 10.8 gm/dl (11.8-15.2) L 11/17/20 07:28 Hct 30.9 % (35.5-45.6) L 11/17/20 07:28 MCV 100 fl (84-94) H 11/17/20 07:28 MCH 35 pg (28-32) H 11/17/20 07:28 MCHC 35 % (32-34) H 11/17/20 07:28 RDW 13.8 % (13.2-15.2) 11/17/20 07:28 Plt Count 239 K/mm3 (140-440) 11/17/20 07:28 Lymph % (Auto) 10.8 % (13.4-35.0) L 11/13/20 07:18 [place] % (Auto) 10.9 % (0.0-7.3) H 11/13/20 07:18 Eos % (Auto) 1.8 % (0.0-4.3) 11/13/20 07:18 Baso % (Auto) 0.4 % (0.0-1.8) 11/13/20 07:18 Lymph # (Auto) 0.8 K/mm3 (1.2-5.4) L 11/13/20 07:18 [place] # (Auto) 0.8 K/mm3 (0.0-0.8) 11/13/20 07:18 Eos # (Auto) 0.1 K/mm3 (0.0-0.4) 11/13/20 07:18 Baso # (Auto) 0.0 K/mm3 (0.0-0.1) 11/13/20 07:18 Seg Neutrophils % 76.1 % (40.0-70.0) H 11/13/20 07:18 Seg Neutrophils # 5.8 K/mm3 (1.8-7.7) 11/13/20 07:18 PT 12.7 Sec. (12.2-14.9) 11/11/20 20:06 INR 0.96 (0.87-1.13) 11/11/20 20:06 APTT 30.5 Sec. (24.2-36.6) 11/11/20 20:06 Sodium 130 mmol/L (137-145) L 11/17/20 07:28 Potassium 4.7 mmol/L (3.6-5.0) 11/17/20 07:28 Chloride 95.9 mmol/L (98-107) L 11/17/20 07:28 Carbon Dioxide 26 mmol/L (22-30) 11/17/20 07:28 Anion Gap 13 mmol/L 11/17/20 07:28 BUN 13 mg/dL (9-20) 11/17/20 07:28 Creatinine 0.6 mg/dL (0.8-1.3) L 11/17/20 07:28 Estimated GFR > 60 ml/min 11/17/20 07:28 BUN/Creatinine Ratio 22 % 11/17/20 07:28 Glucose 88 mg/dL (75-100) 11/17/20 07:28 Hemoglobin A1c 4.7 % (4-6) 11/12/20 02:58 Osmolality 268 Mosm/kg 11/12/20 02:58 Lactic Acid 1.00 mmol/L (0.7-2.0) 11/11/20 20:06 Calcium 8.6 mg/dL (8.4-10.2) 11/17/20 07:28 Phosphorus 3.30 mg/dL (2.5-4.5) 11/12/20 02:58 Magnesium 1.20 mg/dL (1.7-2.3) L 11/12/20 02:58 Ferritin 272.0 ng/mL (30.0-300.0) 11/12/20 06:42 Total Bilirubin 0.30 mg/dL (0.1-1.2) 11/11/20 20:06 AST 29 units/L (5-40) 11/11/20 20:06 ALT 27 units/L (7-56) 11/11/20 20:06 Alkaline Phosphatase 85 units/L (35-129) 11/11/20 20:06 Ammonia 38.0 umol/L (25-60) 11/11/20 20:06 Total Creatine Kinase 141 units/L (55-170) 11/11/20 20:06 Troponin T < 0.010 ng/mL (0.00-0.029) 11/11/20 20:06 Total Protein 6.1 g/dL (6.3-8.2) L 11/11/20 20:06 Albumin 3.9 g/dL (3.9-5) 11/11/20 20:06 Albumin/Globulin Ratio 1.8 % 11/11/20 20:06 Vitamin B12 505.1 pg/mL (211-911) 11/12/20 17:54 TSH 1.280 mlU/mL (0.270-4.200) 11/12/20 17:54 Urine Color Yellow (Yellow) 11/12/20 01:12 Urine Turbidity Clear (Clear) 11/12/20 01:12 Urine pH 5.0 (5.0-7.0) 11/12/20 01:12 Ur Specific [place] 1.012 (1.003-1.030) 11/12/20 01:12 Urine Protein <15 mg/dl mg/dL (Negative) 11/12/20 01:12 Urine Glucose (UA) Neg mg/dL (Negative) 11/12/20 01:12 Urine Ketones Neg mg/dL (Negative) 11/12/20 01:12 Urine Blood Neg (Negative) 11/12/20 01:12 Urine Nitrite Neg (Negative) 11/12/20 01:12 Urine Bilirubin Neg (Negative) 11/12/20 01:12 Urine Urobilinogen < 2.0 mg/dL (<2.0) 11/12/20 01:12 Ur Leukocyte Esterase Neg (Negative) 11/12/20 01:12 Urine WBC (Auto) 1.0 /HPF (0.0-6.0) 11/12/20 01:12 Urine RBC (Auto) 1.0 /HPF (0.0-6.0) 11/12/20 01:12 Urine Mucus Few /HPF 11/12/20 01:12 Urine Osmolality 149 Mosm/kg 11/12/20 12:19 Salicylates < 0.3 mg/dL (2.8-20.0) L 11/11/20 20:06 Urine Opiates Screen Negative 11/12/20 12:19 Urine Methadone Screen Negative 11/12/20 12:19 Acetaminophen 5.0 ug/mL (10.0-30.0) L 11/11/20 20:06 Ur Barbiturates Screen Negative 11/12/20 12:19 Ur Phencyclidine Scrn Negative 11/12/20 12:19 Ur Amphetamines Screen Negative 11/12/20 12:19 U Benzodiazepines Scrn Negative 11/12/20 12:19 Urine Cocaine Screen Negative 11/12/20 12:19 U Marijuana (THC) Screen Negative 11/12/20 12:19 Drugs of Abuse Note Disclamer 11/12/20 12:19 Plasma/Serum Alcohol < 0.01 % (0-0.07) 11/11/20 20:06 Syphilis IgG Antibody Reactive (NonReactive) A 11/12/20 17:54 RPR Titer 1:8 11/12/20 17:54 T.pallidum Ab (FTA-ABS) Reactive (Nonreactive) H 11/12/20 17:54 Coronavirus (PCR) Negative (Negative) 11/14/20 Unknown HIV 1&2 Antibody Rapid Non react (Non React) 11/12/20 17:54 HIV P24 Antigen Non react (Non React) 11/12/20 17:54 Microbiology: Microbiology 11/11/20 20:06 Peripheral/Venous Blood Culture - Final NO GROWTH AFTER 5 DAYS 11/11/20 20:13 Peripheral/Venous Blood Culture - Final NO GROWTH AFTER 5 DAYS [place]/IV: Voiding Method Urinal Active Medications - Current Medications Current Medications: Generic Name Dose Route Start Last Admin Trade Name Freq PRN Reason Stop Dose Admin Acetaminophen 650 mg 11/12/20 02:41 11/17/20 01:45 Acetaminophen 325 Mg Tab PO 650 mg Q4H PRN Administration Pain MILD(1-3)/Fever >100.5/ALMENDAREZ Amlodipine Besylate 10 mg 11/12/20 10:00 11/16/20 10:05 Amlodipine 10 Mg Tab PO 10 mg QDAY GIULIA Administration Clonidine HCl 0.2 mg 11/12/20 11:00 11/12/20 11:07 Clonidine Tts 0.2 Mg/24 Hr Patch TD 0.2 mg Th GIULIA Administration Docusate Sodium 100 mg 11/12/20 10:00 11/16/20 21:49 Docusate Sodium 100 Mg Cap PO 100 mg BID GIULIA Administration Folic Acid 1 mg 11/12/20 10:00 11/16/20 10:05 Folic Acid 1 Mg Tab PO 1 mg QDAY GIULIA Administration Heparin Sodium (Porcine) 5,000 unit 11/12/20 10:00 11/16/20 21:49 Heparin 5,000 Unit/1 Ml Vial SUB-Q 5,000 unit Q12HR GIULIA Administration Penicillin G Potassium 4 mil. 50 mls @ 100 mls/hr 11/14/20 14:00 11/17/20 07:10 units/ Sodium Chloride IV 11/28/20 10:29 Not Given Q4HR GIULIA Lorazepam 2 mg 11/12/20 02:43 05/09/21 21:17 Lorazepam 2 Mg/Ml Vial IV 2 mg Q1H PRN Administration [facility] 8-15 Multivitamins 1 each 11/12/20 10:00 11/16/20 10:04 Multivitamins ,Therapeutic Tab PO 1 each QDAY GIULIA Administration Nicotine 14 mg 11/12/20 10:00 11/16/20 10:11 Nicotine 14 Mg/24 Hr Patch TD 14 mg QDAY GIULIA Administration Ondansetron HCl 4 mg 11/12/20 02:41 Ondansetron 4 Mg/2 Ml Inj IV Q8H PRN Nausea And Vomiting Sodium Chloride 10 ml 11/12/20 10:00 11/16/20 21:49 Sodium Chloride 0.9% 10 Ml Flush Syringe IV 10 ml BID GIULIA Administration Sodium Chloride 10 ml 11/12/20 02:41 11/12/20 05:39 Sodium Chloride 0.9% 10 Ml Flush Syringe IV 10 ml PRN PRN Administration LINE FLUSH Thiamine HCl 100 mg 11/12/20 10:00 11/16/20 10:05 Thiamine 100 Mg Tab PO 100 mg QDAY GIULIA Administration Nutrition/Malnutrition Assess - Dietary Evaluation Nutrition/Malnutrition Findings: Nutrition Notes Start: 11/12/20 09:53 Freq: Status: Active Protocol: Document 11/16/20 09:12 (Rec: 11/16/20 09:15 [id number]) Nutrition Notes Initial or Follow up Reassessment Current Diagnosis Hypertension Other Pertinent Diagnosis AMS, Neuropathy, Depression, hx EtOH abuse, Metabolic Encephalopathy Current Diet Cardiac Diet Labs/Tests Na 133 Pertinent Medications Reviewed Height 5 ft 10 in Weight 78.84 kg [place] Body Weight (kg) 75.45 BMI 24.9 Weight Status Appropriate Subjective/Other Information FU for intakes. Pt reports enjoying the ONS and would like to continue both of them. Pt eating 100% of meals. Percent of energy/protein needs met: 100%/100% Burn Absent Trauma Absent Current % PO Good (75-100%) Minimum of two criteria No physical signs of malnutrition #1 Nutrition Diagnosis Inadequate oral intake As Evidenced by Signs and Symptoms pt eating 100% of meals Diagnosis Progress(for reassessment Resolved documentation) Is patient on ventilator? No Is Patient Ambulatory and/or Out of Bed No REE-([facility]-confined to bed) [phone] Calculation Used for Recommendations [facility] Additional Notes PRO needs: 60-75g (0.8-1g/kg) Fluid needs: 1mL/kcal or per MD Nutrition Intervention Change Diet Order: Continue Add Supplement/Snack (indicate name/kcal Ensure Enlive BID /protein ) Provides kCal: 700 Provides Protein (gm) 40 Goal #1 Meet at least 75% of EER and protein needs via diet and ONS Anticipated Discharge Needs: Cardiac diet Follow-Up By: 11/20/20 Additional Comments FU for stable intakes and ONS tolerance
[2020-11-17] MEDS: THIAMINE 100 MG TAB PO SCH (10:00)
[2020-11-17] MEDS: HEPARIN 5,000 UNIT/1 ML VIAL SUB-Q SCH ×2 (10:00→21:45)
[2020-11-17] MEDS: NICOTINE 14 MG/24 HR PATCH TD SCH (10:00)
[2020-11-17] MEDS: DOCUSATE SODIUM 100 MG CAP PO SCH ×2 (10:00→21:45)
[2020-11-17] MEDS: amLODIPine 10 MG TAB PO SCH (10:00)
[2020-11-17] MEDS: MULTIVITAMINS ,THERAPEUTIC TAB PO SCH (10:00)
[2020-11-17] MEDS: FOLIC ACID 1 MG TAB PO SCH (10:00)
--- NOTE | 2020-11-17 15:15 | Progress Note ---
Assessment and Plan Cultures: Blood culture: No growth Syphilis IgG and RPR positive with titer of 1:8 HIV negative A/P: 59-year-old male with alcohol, tobacco abuse admitted with encephalopathy and bizarre behavior: #Syphilis: Late latent versus neurosyphilis. Patient declines LP. HIV negative. #Acute encephalopathy: Related to syphilis versus hyponatremia, improving Recs: -Declined LP, hence best to treat as neurosyphilis -IV penicillin G 4 million units q4 hrs or 20 million units as continuous infusion daily for 14 days ending 11/28/2020 -midline ordered -CM orders placed, considering his mental issues as well as his living conditions, may be best to get IV penicillin at a rehab facility Carissa Palencia MD [facility] ([facility]) Office [phone] Subjective Date of service: 11/17/20 Principal diagnosis: Syphilis Interval history: Patient feels okay, remains confused. No fever. Objective - Exam Narrative Exam: General appearance: Alert in NAD confused Eyes: anicteric sclerae, moist conjunctivae; no lid-lag; PERRLA HENT: Normocephalic, Atraumatic; normal external ears, nares open, oropharynx clear Neck: supple, tracheal midline, no JVD Lungs: CTA, with normal respiratory effort and no intercostal retractions CV: RRR no murmur Abdomen: Soft, non-tender; no masses or hepatosplenomegaly Extremities: no edema, no cyanosis Skin: No rash. Psych: no agitated Neuro: Alert, confused - Constitutional Vitals: Vital Signs Temp Pulse Resp BP Pulse Ox 98.8 F 88 20 136/82 98 11/17/20 11:46 11/17/20 11:46 11/17/20 11:46 11/17/20 11:46 11/17/20 11:46 Temperature -Last 24 Hours Temperature 98.8 F Temperature 97.3 F Temperature 98.2 F Temperature 97.6 F - Labs CBC & Chem 7: 11/17/20 07:28 11/17/20 07:28 Labs: Abnormal lab results 11/12/20 11/17/20 11/17/20 Range/Units 17:54 07:28 07:28 RBC 3.08 L (3.65-5.03) M/mm3 Hgb 10.8 L (11.8-15.2) gm/dl Hct 30.9 L (35.5-45.6) % MCV 100 H (84-94) fl MCH 35 H (28-32) pg MCHC 35 H (32-34) % Sodium 130 L (137-145) mmol/L Chloride 95.9 L (98-107) mmol/L Creatinine 0.6 L (0.8-1.3) mg/dL T.pallidum Ab (FTA-ABS) Reactive H (Nonreactive)
[2020-11-18] MEDS: PENICILLIN G POTASSIUM 4 MIL.UNITS in SODIUM CHLORIDE 0.9% 50 ML IV SCH ×6 (02:23→21:20)
[2020-11-18] MEDS: LORazepam 2 MG/ML VIAL IV PRN (02:25)
[2020-11-18] MEDS: amLODIPine 10 MG TAB PO SCH (09:23)
[2020-11-18] MEDS: DOCUSATE SODIUM 100 MG CAP PO SCH ×2 (09:23→21:20)
[2020-11-18] MEDS: NICOTINE 14 MG/24 HR PATCH TD SCH (09:23)
[2020-11-18] MEDS: THIAMINE 100 MG TAB PO SCH (09:23)
[2020-11-18] MEDS: FOLIC ACID 1 MG TAB PO SCH (09:24)
[2020-11-18] MEDS: MULTIVITAMINS ,THERAPEUTIC TAB PO SCH (09:24)
[2020-11-18] MEDS: HEPARIN 5,000 UNIT/1 ML VIAL SUB-Q SCH ×2 (09:24→21:20)
--- NOTE | 2020-11-18 11:38 | Progress Note ---
Assessment and Plan Assessment and plan: Syphilis. Late latent versus neurosyphilis. Toxic metabolic encephalopathy. Etiology secondary to sepsis versus hyponatremia. 11/17/2020. Patient reportedly declined LP. ID started penicillin G 4,000,000 units every 4 hours or 20,000,000 units as continuous infusion daily for 14 days ending on 11/28. Midline ordered. Will discuss with case management possibility of patient receiving IV penicillin in a rehab facility versus LTAC. However, patient unfunded. 11/18/2020. Cont. penicillin G 4,000,000 units every 4 hours or 20,000,000 units as continuous infusion daily for 14 days ending on 11/28. Midline ordered. Will discuss with case management possibility of patient receiving IV penicillin in a rehab facility versus LTAC. However, patient unfunded. History Interval history: Patient confused. No new issues overnight. Hospitalist Physical - Constitutional Vitals: Temp Pulse Resp BP Pulse Ox 98.2 F 98 H 20 156/69 98 11/18/20 05:17 11/18/20 09:23 11/18/20 05:17 11/18/20 09:23 11/18/20 05:17 General appearance: Present: no acute distress, well-nourished - EENT Eyes: Present: PERRL, EOM intact ENT: hearing intact, clear oral mucosa, dentition normal - Neck Neck: Present: supple, normal ROM - Respiratory Respiratory effort: normal Respiratory: bilateral: CTA - Cardiovascular Rhythm: regular Heart Sounds: Present: S1 & S2. Absent: gallop, rub - Extremities Extremities: no ischemia, No edema, Full ROM - Abdominal General gastrointestinal: soft, non-tender, non-distended, normal bowel sounds - Integumentary Integumentary: Present: clear, warm, dry - Neurologic Neurologic: CNII-XII intact, moves all extremities HEART Score - HEART Score Troponin: Troponin T < 0.010 ng/mL (0.00-0.029) 11/11/20 20:06 Results - Labs CBC & Chem 7: 11/17/20 07:28 11/17/20 07:28 Labs: Laboratory Last Values WBC 5.4 K/mm3 (4.5-11.0) 11/17/20 07:28 RBC 3.08 M/mm3 (3.65-5.03) L 11/17/20 07:28 Hgb 10.8 gm/dl (11.8-15.2) L 11/17/20 07:28 Hct 30.9 % (35.5-45.6) L 11/17/20 07:28 MCV 100 fl (84-94) H 11/17/20 07:28 MCH 35 pg (28-32) H 11/17/20 07:28 MCHC 35 % (32-34) H 11/17/20 07:28 RDW 13.8 % (13.2-15.2) 11/17/20 07:28 Plt Count 239 K/mm3 (140-440) 11/17/20 07:28 Lymph % (Auto) 10.8 % (13.4-35.0) L 11/13/20 07:18 [place] % (Auto) 10.9 % (0.0-7.3) H 11/13/20 07:18 Eos % (Auto) 1.8 % (0.0-4.3) 11/13/20 07:18 Baso % (Auto) 0.4 % (0.0-1.8) 11/13/20 07:18 Lymph # (Auto) 0.8 K/mm3 (1.2-5.4) L 11/13/20 07:18 [place] # (Auto) 0.8 K/mm3 (0.0-0.8) 11/13/20 07:18 Eos # (Auto) 0.1 K/mm3 (0.0-0.4) 11/13/20 07:18 Baso # (Auto) 0.0 K/mm3 (0.0-0.1) 11/13/20 07:18 Seg Neutrophils % 76.1 % (40.0-70.0) H 11/13/20 07:18 Seg Neutrophils # 5.8 K/mm3 (1.8-7.7) 11/13/20 07:18 PT 12.7 Sec. (12.2-14.9) 11/11/20 20:06 INR 0.96 (0.87-1.13) 11/11/20 20:06 APTT 30.5 Sec. (24.2-36.6) 11/11/20 20:06 Sodium 130 mmol/L (137-145) L 11/17/20 07:28 Potassium 4.7 mmol/L (3.6-5.0) 11/17/20 07:28 Chloride 95.9 mmol/L (98-107) L 11/17/20 07:28 Carbon Dioxide 26 mmol/L (22-30) 11/17/20 07:28 Anion Gap 13 mmol/L 11/17/20 07:28 BUN 13 mg/dL (9-20) 11/17/20 07:28 Creatinine 0.6 mg/dL (0.8-1.3) L 11/17/20 07:28 Estimated GFR > 60 ml/min 11/17/20 07:28 BUN/Creatinine Ratio 22 % 11/17/20 07:28 Glucose 88 mg/dL (75-100) 11/17/20 07:28 Hemoglobin A1c 4.7 % (4-6) 11/12/20 02:58 Osmolality 268 Mosm/kg 11/12/20 02:58 Lactic Acid 1.00 mmol/L (0.7-2.0) 11/11/20 20:06 Calcium 8.6 mg/dL (8.4-10.2) 11/17/20 07:28 Phosphorus 3.30 mg/dL (2.5-4.5) 11/12/20 02:58 Magnesium 1.20 mg/dL (1.7-2.3) L 11/12/20 02:58 Ferritin 272.0 ng/mL (30.0-300.0) 11/12/20 06:42 Total Bilirubin 0.30 mg/dL (0.1-1.2) 11/11/20 20:06 AST 29 units/L (5-40) 11/11/20 20:06 ALT 27 units/L (7-56) 11/11/20 20:06 Alkaline Phosphatase 85 units/L (35-129) 11/11/20 20:06 Ammonia 38.0 umol/L (25-60) 11/11/20 20:06 Total Creatine Kinase 141 units/L (55-170) 11/11/20 20:06 Troponin T < 0.010 ng/mL (0.00-0.029) 11/11/20 20:06 Total Protein 6.1 g/dL (6.3-8.2) L 11/11/20 20:06 Albumin 3.9 g/dL (3.9-5) 11/11/20 20:06 Albumin/Globulin Ratio 1.8 % 11/11/20 20:06 Vitamin B12 505.1 pg/mL (211-911) 11/12/20 17:54 TSH 1.280 mlU/mL (0.270-4.200) 11/12/20 17:54 Urine Color Yellow (Yellow) 11/12/20 01:12 Urine Turbidity Clear (Clear) 11/12/20 01:12 Urine pH 5.0 (5.0-7.0) 11/12/20 01:12 Ur Specific [place] 1.012 (1.003-1.030) 11/12/20 01:12 Urine Protein <15 mg/dl mg/dL (Negative) 11/12/20 01:12 Urine Glucose (UA) Neg mg/dL (Negative) 11/12/20 01:12 Urine Ketones Neg mg/dL (Negative) 11/12/20 01:12 Urine Blood Neg (Negative) 11/12/20 01:12 Urine Nitrite Neg (Negative) 11/12/20 01:12 Urine Bilirubin Neg (Negative) 11/12/20 01:12 Urine Urobilinogen < 2.0 mg/dL (<2.0) 11/12/20 01:12 Ur Leukocyte Esterase Neg (Negative) 11/12/20 01:12 Urine WBC (Auto) 1.0 /HPF (0.0-6.0) 11/12/20 01:12 Urine RBC (Auto) 1.0 /HPF (0.0-6.0) 11/12/20 01:12 Urine Mucus Few /HPF 11/12/20 01:12 Urine Osmolality 149 Mosm/kg 11/12/20 12:19 Salicylates < 0.3 mg/dL (2.8-20.0) L 11/11/20 20:06 Urine Opiates Screen Negative 11/12/20 12:19 Urine Methadone Screen Negative 11/12/20 12:19 Acetaminophen 5.0 ug/mL (10.0-30.0) L 11/11/20 20:06 Ur Barbiturates Screen Negative 11/12/20 12:19 Ur Phencyclidine Scrn Negative 11/12/20 12:19 Ur Amphetamines Screen Negative 11/12/20 12:19 U Benzodiazepines Scrn Negative 11/12/20 12:19 Urine Cocaine Screen Negative 11/12/20 12:19 U Marijuana (THC) Screen Negative 11/12/20 12:19 Drugs of Abuse Note Disclamer 11/12/20 12:19 Plasma/Serum Alcohol < 0.01 % (0-0.07) 11/11/20 20:06 Syphilis IgG Antibody Reactive (NonReactive) A 11/12/20 17:54 RPR Titer 1:8 11/12/20 17:54 T.pallidum Ab (FTA-ABS) Reactive (Nonreactive) H 11/12/20 17:54 Coronavirus (PCR) Negative (Negative) 11/14/20 Unknown HIV 1&2 Antibody Rapid Non react (Non React) 11/12/20 17:54 HIV P24 Antigen Non react (Non React) 11/12/20 17:54 [place]/IV: Voiding Method Toilet Active Medications - Current Medications Current Medications: Generic Name Dose Route Start Last Admin Trade Name Freq PRN Reason Stop Dose Admin Acetaminophen 650 mg 11/12/20 02:41 11/17/20 01:45 Acetaminophen 325 Mg Tab PO 650 mg Q4H PRN Administration Pain MILD(1-3)/Fever >100.5/ALMENDAREZ Amlodipine Besylate 10 mg 11/12/20 10:00 11/18/20 09:23 Amlodipine 10 Mg Tab PO 10 mg QDAY GIULIA Administration Clonidine HCl 0.2 mg 11/12/20 11:00 11/12/20 11:07 Clonidine Tts 0.2 Mg/24 Hr Patch TD 0.2 mg Th GIULIA Administration Docusate Sodium 100 mg 11/12/20 10:00 11/18/20 09:23 Docusate Sodium 100 Mg Cap PO 100 mg BID GIULIA Administration Folic Acid 1 mg 11/12/20 10:00 11/18/20 09:24 Folic Acid 1 Mg Tab PO 1 mg QDAY GIULIA Administration Heparin Sodium (Porcine) 5,000 unit 11/12/20 10:00 11/18/20 09:24 Heparin 5,000 Unit/1 Ml Vial SUB-Q 5,000 unit Q12HR GIULIA Administration Penicillin G Potassium 4 mil. 50 mls @ 100 mls/hr 11/14/20 14:00 11/18/20 10:36 units/ Sodium Chloride IV 11/28/20 10:29 100 mls/hr Q4HR GIULIA Administration Lorazepam 2 mg 11/12/20 02:43 11/18/20 02:25 Lorazepam 2 Mg/Ml Vial IV 2 mg Q1H PRN Administration [place] 8-15 Multivitamins 1 each 11/12/20 10:00 11/18/20 09:24 Multivitamins ,Therapeutic Tab PO 1 each QDAY GIULIA Administration Nicotine 14 mg 11/12/20 10:00 11/18/20 09:23 Nicotine 14 Mg/24 Hr Patch TD 14 mg QDAY GIULIA Administration Ondansetron HCl 4 mg 11/12/20 02:41 Ondansetron 4 Mg/2 Ml Inj IV Q8H PRN Nausea And Vomiting Sodium Chloride 10 ml 11/12/20 10:00 11/18/20 09:24 Sodium Chloride 0.9% 10 Ml Flush Syringe IV 10 ml BID GIULIA Administration Sodium Chloride 10 ml 11/12/20 02:41 11/12/20 05:39 Sodium Chloride 0.9% 10 Ml Flush Syringe IV 10 ml PRN PRN Administration LINE FLUSH Thiamine HCl 100 mg 11/12/20 10:00 11/18/20 09:23 Thiamine 100 Mg Tab PO 100 mg QDAY GIULIA Administration Nutrition/Malnutrition Assess - Dietary Evaluation Nutrition/Malnutrition Findings: Nutrition Notes Start: 11/12/20 09:53 Freq: Status: Active Protocol: Document 11/16/20 09:12 (Rec: 11/16/20 09:15 [id number]) Nutrition Notes Initial or Follow up Reassessment Current Diagnosis Hypertension Other Pertinent Diagnosis AMS, Neuropathy, Depression, hx EtOH abuse, Metabolic Encephalopathy Current Diet Cardiac Diet Labs/Tests Na 133 Pertinent Medications Reviewed Height 5 ft 10 in Weight 78.84 kg [place] Body Weight (kg) 75.45 BMI 24.9 Weight Status Appropriate Subjective/Other Information FU for intakes. Pt reports enjoying the ONS and would like to continue both of them. Pt eating 100% of meals. Percent of energy/protein needs met: 100%/100% Burn Absent Trauma Absent Current % PO Good (75-100%) Minimum of two criteria No physical signs of malnutrition #1 Nutrition Diagnosis Inadequate oral intake As Evidenced by Signs and Symptoms pt eating 100% of meals Diagnosis Progress(for reassessment Resolved documentation) Is patient on ventilator? No Is Patient Ambulatory and/or Out of Bed No REE-([place] [facility]-confined to bed) 2184.488 Calculation Used for Recommendations [place] Additional Notes PRO needs: 60-75g (0.8-1g/kg) Fluid needs: 1mL/kcal or per MD Nutrition Intervention Change Diet Order: Continue Add Supplement/Snack (indicate name/kcal Ensure Enlive BID /protein ) Provides kCal: 700 Provides Protein (gm) 40 Goal #1 Meet at least 75% of EER and protein needs via diet and ONS Anticipated Discharge Needs: Cardiac diet Follow-Up By: 11/20/20 Additional Comments FU for stable intakes and ONS tolerance
--- NOTE | 2020-11-18 14:14 | Progress Note ---
Assessment and Plan Cultures: Blood culture: No growth Syphilis IgG and RPR positive with titer of 1:8 HIV negative A/P: 59-year-old male with alcohol, tobacco abuse admitted with encephalopathy and bizarre behavior: #Syphilis: Late latent versus neurosyphilis. Patient declines LP. HIV negative. #Acute encephalopathy: Resolved. Related to syphilis versus hyponatremia +/- alcohol dependence. #Alcohol dependence: per sistent he drinks alcohol heavily. Recs: -Declined LP, hence best to treat as neurosyphilis -Continue IV penicillin G 4 million units q4 hrs or 20 million units as continuous infusion daily for 14 days ending 11/28/2020 -midline ordered -CM orders placed -Ophthalmology evaluation as an outpatient, worsening eyesight Plan discussed with sister will sign off please call if any question Carissa Palencia MD [facility] ([facility]) Office [phone] Subjective Date of service: 11/18/20 Principal diagnosis: Syphilis Interval history: Patient feels better, alert, answering all questions, following all commands. Objective - Exam Narrative Exam: General appearance: Alert in NAD confused Eyes: anicteric sclerae, moist conjunctivae; no lid-lag; PERRLA HENT: Normocephalic, Atraumatic; normal external ears, nares open, oropharynx clear Neck: supple, tracheal midline, no JVD Lungs: CTA, with normal respiratory effort and no intercostal retractions CV: RRR no murmur Abdomen: Soft, non-tender; no masses or hepatosplenomegaly Extremities: no edema, no cyanosis Skin: No rash. Psych: no agitated Neuro: Alert, confused - Constitutional Vitals: Vital Signs Temp Pulse Resp BP Pulse Ox 98.2 F 98 H 20 156/69 98 11/18/20 05:17 11/18/20 09:23 11/18/20 05:17 11/18/20 09:23 11/18/20 05:17 Temperature -Last 24 Hours Temperature 98.2 F Temperature 98.5 F Temperature 98.3 F - Labs CBC & Chem 7: 11/17/20 07:28 11/17/20 07:28
[2020-11-19] MEDS: PENICILLIN G POTASSIUM 4 MIL.UNITS in SODIUM CHLORIDE 0.9% 50 ML IV SCH ×6 (04:21→21:35)
--- NOTE | 2020-11-19 08:25 | Progress Note ---
Assessment and Plan Assessment and plan: Syphilis. Late latent versus neurosyphilis. Toxic metabolic encephalopathy. Etiology secondary to sepsis versus hyponatremia. 11/17/2020. Patient reportedly declined LP. ID started penicillin G 4,000,000 units every 4 hours or 20,000,000 units as continuous infusion daily for 14 days ending on 11/28. Midline ordered. Will discuss with case management possibility of patient receiving IV penicillin in a rehab facility versus LTAC. However, patient unfunded. 11/18/2020. Cont. penicillin G 4,000,000 units every 4 hours or 20,000,000 units as continuous infusion daily for 14 days ending on 11/28. Midline ordered. Will discuss with case management possibility of patient receiving IV penicillin in a rehab facility versus LTAC. However, patient unfunded. 11/19/2020. Continue IV penicillin G 4,000,000 units every 4 hours as continuous infusion daily for 14 days ending 11/28/2020. Midline ordered. Plan discussed with the sister. Patient is unfunded. History Interval history: Confusion has improved. No new issues overnight. Hospitalist Physical - Constitutional Vitals: Temp Pulse Resp BP Pulse Ox 98.3 F 72 20 135/81 99 11/19/20 05:28 11/19/20 05:28 11/19/20 05:28 11/19/20 05:28 11/19/20 05:28 General appearance: Present: no acute distress, well-nourished - EENT Eyes: Present: PERRL, EOM intact ENT: hearing intact, clear oral mucosa, dentition normal - Neck Neck: Present: supple, normal ROM - Respiratory Respiratory effort: normal Respiratory: bilateral: CTA - Cardiovascular Rhythm: regular Heart Sounds: Present: S1 & S2. Absent: gallop, rub - Extremities Extremities: no ischemia, No edema, Full ROM - Abdominal General gastrointestinal: soft, non-tender, non-distended, normal bowel sounds - Integumentary Integumentary: Present: clear, warm, dry - Neurologic Neurologic: CNII-XII intact, moves all extremities HEART Score - HEART Score Troponin: Troponin T < 0.010 ng/mL (0.00-0.029) 11/11/20 20:06 Results - Labs CBC & Chem 7: 11/17/20 07:28 11/17/20 07:28 Labs: Laboratory Last Values WBC 5.4 K/mm3 (4.5-11.0) 11/17/20 07:28 RBC 3.08 M/mm3 (3.65-5.03) L 11/17/20 07:28 Hgb 10.8 gm/dl (11.8-15.2) L 11/17/20 07:28 Hct 30.9 % (35.5-45.6) L 11/17/20 07:28 MCV 100 fl (84-94) H 11/17/20 07:28 MCH 35 pg (28-32) H 11/17/20 07:28 MCHC 35 % (32-34) H 11/17/20 07:28 RDW 13.8 % (13.2-15.2) 11/17/20 07:28 Plt Count 239 K/mm3 (140-440) 11/17/20 07:28 Lymph % (Auto) 10.8 % (13.4-35.0) L 11/13/20 07:18 [place] % (Auto) 10.9 % (0.0-7.3) H 11/13/20 07:18 Eos % (Auto) 1.8 % (0.0-4.3) 11/13/20 07:18 Baso % (Auto) 0.4 % (0.0-1.8) 11/13/20 07:18 Lymph # (Auto) 0.8 K/mm3 (1.2-5.4) L 11/13/20 07:18 [place] # (Auto) 0.8 K/mm3 (0.0-0.8) 11/13/20 07:18 Eos # (Auto) 0.1 K/mm3 (0.0-0.4) 11/13/20 07:18 Baso # (Auto) 0.0 K/mm3 (0.0-0.1) 11/13/20 07:18 Seg Neutrophils % 76.1 % (40.0-70.0) H 11/13/20 07:18 Seg Neutrophils # 5.8 K/mm3 (1.8-7.7) 11/13/20 07:18 PT 12.7 Sec. (12.2-14.9) 11/11/20 20:06 INR 0.96 (0.87-1.13) 11/11/20 20:06 APTT 30.5 Sec. (24.2-36.6) 11/11/20 20:06 Sodium 130 mmol/L (137-145) L 11/17/20 07:28 Potassium 4.7 mmol/L (3.6-5.0) 11/17/20 07:28 Chloride 95.9 mmol/L (98-107) L 11/17/20 07:28 Carbon Dioxide 26 mmol/L (22-30) 11/17/20 07:28 Anion Gap 13 mmol/L 11/17/20 07:28 BUN 13 mg/dL (9-20) 11/17/20 07:28 Creatinine 0.6 mg/dL (0.8-1.3) L 11/17/20 07:28 Estimated GFR > 60 ml/min 11/17/20 07:28 BUN/Creatinine Ratio 22 % 11/17/20 07:28 Glucose 88 mg/dL (75-100) 11/17/20 07:28 Hemoglobin A1c 4.7 % (4-6) 11/12/20 02:58 Osmolality 268 Mosm/kg 11/12/20 02:58 Lactic Acid 1.00 mmol/L (0.7-2.0) 11/11/20 20:06 Calcium 8.6 mg/dL (8.4-10.2) 11/17/20 07:28 Phosphorus 3.30 mg/dL (2.5-4.5) 11/12/20 02:58 Magnesium 1.20 mg/dL (1.7-2.3) L 11/12/20 02:58 Ferritin 272.0 ng/mL (30.0-300.0) 11/12/20 06:42 Total Bilirubin 0.30 mg/dL (0.1-1.2) 11/11/20 20:06 AST 29 units/L (5-40) 11/11/20 20:06 ALT 27 units/L (7-56) 11/11/20 20:06 Alkaline Phosphatase 85 units/L (35-129) 11/11/20 20:06 Ammonia 38.0 umol/L (25-60) 11/11/20 20:06 Total Creatine Kinase 141 units/L (55-170) 11/11/20 20:06 Troponin T < 0.010 ng/mL (0.00-0.029) 11/11/20 20:06 Total Protein 6.1 g/dL (6.3-8.2) L 11/11/20 20:06 Albumin 3.9 g/dL (3.9-5) 11/11/20 20:06 Albumin/Globulin Ratio 1.8 % 11/11/20 20:06 Vitamin B1 24 nmol/L (8-30) 11/12/20 17:54 Vitamin B12 505.1 pg/mL (211-911) 11/12/20 17:54 TSH 1.280 mlU/mL (0.270-4.200) 11/12/20 17:54 Urine Color Yellow (Yellow) 11/12/20 01:12 Urine Turbidity Clear (Clear) 11/12/20 01:12 Urine pH 5.0 (5.0-7.0) 11/12/20 01:12 Ur Specific [place] 1.012 (1.003-1.030) 11/12/20 01:12 Urine Protein <15 mg/dl mg/dL (Negative) 11/12/20 01:12 Urine Glucose (UA) Neg mg/dL (Negative) 11/12/20 01:12 Urine Ketones Neg mg/dL (Negative) 11/12/20 01:12 Urine Blood Neg (Negative) 11/12/20 01:12 Urine Nitrite Neg (Negative) 11/12/20 01:12 Urine Bilirubin Neg (Negative) 11/12/20 01:12 Urine Urobilinogen < 2.0 mg/dL (<2.0) 11/12/20 01:12 Ur Leukocyte Esterase Neg (Negative) 11/12/20 01:12 Urine WBC (Auto) 1.0 /HPF (0.0-6.0) 11/12/20 01:12 Urine RBC (Auto) 1.0 /HPF (0.0-6.0) 11/12/20 01:12 Urine Mucus Few /HPF 11/12/20 01:12 Urine Osmolality 149 Mosm/kg 11/12/20 12:19 Salicylates < 0.3 mg/dL (2.8-20.0) L 11/11/20 20:06 Urine Opiates Screen Negative 11/12/20 12:19 Urine Methadone Screen Negative 11/12/20 12:19 Acetaminophen 5.0 ug/mL (10.0-30.0) L 11/11/20 20:06 Ur Barbiturates Screen Negative 11/12/20 12:19 Ur Phencyclidine Scrn Negative 11/12/20 12:19 Ur Amphetamines Screen Negative 11/12/20 12:19 U Benzodiazepines Scrn Negative 11/12/20 12:19 Urine Cocaine Screen Negative 11/12/20 12:19 U Marijuana (THC) Screen Negative 11/12/20 12:19 Drugs of Abuse Note Disclamer 11/12/20 12:19 Plasma/Serum Alcohol < 0.01 % (0-0.07) 11/11/20 20:06 Syphilis IgG Antibody Reactive (NonReactive) A 11/12/20 17:54 RPR Titer 1:8 11/12/20 17:54 T.pallidum Ab (FTA-ABS) Reactive (Nonreactive) H 11/12/20 17:54 Coronavirus (PCR) Negative (Negative) 11/14/20 Unknown HIV 1&2 Antibody Rapid Non react (Non React) 11/12/20 17:54 HIV P24 Antigen Non react (Non React) 11/12/20 17:54 [place]/IV: Voiding Method Urinal Active Medications - Current Medications Current Medications: Generic Name Dose Route Start Last Admin Trade Name Freq PRN Reason Stop Dose Admin Acetaminophen 650 mg 11/12/20 02:41 11/17/20 01:45 Acetaminophen 325 Mg Tab PO 650 mg Q4H PRN Administration Pain MILD(1-3)/Fever >100.5/ALMENDAREZ Amlodipine Besylate 10 mg 11/12/20 10:00 11/18/20 09:23 Amlodipine 10 Mg Tab PO 10 mg QDAY GIULIA Administration Clonidine HCl 0.2 mg 11/12/20 11:00 11/12/20 11:07 Clonidine Tts 0.2 Mg/24 Hr Patch TD 0.2 mg Th GIULIA Administration Docusate Sodium 100 mg 11/12/20 10:00 11/18/20 21:20 Docusate Sodium 100 Mg Cap PO 100 mg BID GIULIA Administration Folic Acid 1 mg 11/12/20 10:00 11/18/20 09:24 Folic Acid 1 Mg Tab PO 1 mg QDAY GIULIA Administration Heparin Sodium (Porcine) 5,000 unit 11/12/20 10:00 11/18/20 21:20 Heparin 5,000 Unit/1 Ml Vial SUB-Q 5,000 unit Q12HR GIULIA Administration Penicillin G Potassium 4 mil. 50 mls @ 100 mls/hr 11/14/20 14:00 11/19/20 07:23 units/ Sodium Chloride IV 11/28/20 10:29 100 mls/hr Q4HR GIULIA Administration Lorazepam 2 mg 11/12/20 02:43 11/18/20 02:25 Lorazepam 2 Mg/Ml Vial IV 2 mg Q1H PRN Administration [place] 8-15 Multivitamins 1 each 11/12/20 10:00 11/18/20 09:24 Multivitamins ,Therapeutic Tab PO 1 each QDAY GIULIA Administration Nicotine 14 mg 11/12/20 10:00 11/18/20 09:23 Nicotine 14 Mg/24 Hr Patch TD 14 mg QDAY GIULIA Administration Ondansetron HCl 4 mg 11/12/20 02:41 Ondansetron 4 Mg/2 Ml Inj IV Q8H PRN Nausea And Vomiting Sodium Chloride 10 ml 11/12/20 10:00 11/18/20 21:20 Sodium Chloride 0.9% 10 Ml Flush Syringe IV 10 ml BID GIULIA Administration Sodium Chloride 10 ml 11/12/20 02:41 11/12/20 05:39 Sodium Chloride 0.9% 10 Ml Flush Syringe IV 10 ml PRN PRN Administration LINE FLUSH Thiamine HCl 100 mg 11/12/20 10:00 11/18/20 09:23 Thiamine 100 Mg Tab PO 100 mg QDAY GIULIA Administration Nutrition/Malnutrition Assess - Dietary Evaluation Nutrition/Malnutrition Findings: Nutrition Notes Start: 11/12/20 09:53 Freq: Status: Active Protocol: Document 11/16/20 09:12 (Rec: 11/16/20 09:15 [id number]) Nutrition Notes Initial or Follow up Reassessment Current Diagnosis Hypertension Other Pertinent Diagnosis AMS, Neuropathy, Depression, hx EtOH abuse, Metabolic Encephalopathy Current Diet Cardiac Diet Labs/Tests Na 133 Pertinent Medications Reviewed Height 5 ft 10 in Weight 78.84 kg [place] Body Weight (kg) 75.45 BMI 24.9 Weight Status Appropriate Subjective/Other Information FU for intakes. Pt reports enjoying the ONS and would like to continue both of them. Pt eating 100% of meals. Percent of energy/protein needs met: 100%/100% Burn Absent Trauma Absent Current % PO Good (75-100%) Minimum of two criteria No physical signs of malnutrition #1 Nutrition Diagnosis Inadequate oral intake As Evidenced by Signs and Symptoms pt eating 100% of meals Diagnosis Progress(for reassessment Resolved documentation) Is patient on ventilator? No Is Patient Ambulatory and/or Out of Bed No REE-([facility]-confined to bed) [phone] Calculation Used for Recommendations [facility] Additional Notes PRO needs: 60-75g (0.8-1g/kg) Fluid needs: 1mL/kcal or per MD Nutrition Intervention Change Diet Order: Continue Add Supplement/Snack (indicate name/kcal Ensure Enlive BID /protein ) Provides kCal: 700 Provides Protein (gm) 40 Goal #1 Meet at least 75% of EER and protein needs via diet and ONS Anticipated Discharge Needs: Cardiac diet Follow-Up By: 11/20/20 Additional Comments FU for stable intakes and ONS tolerance
[2020-11-19] MEDS: amLODIPine 10 MG TAB PO SCH (08:59)
[2020-11-19] MEDS: FOLIC ACID 1 MG TAB PO SCH (08:59)
[2020-11-19] MEDS: DOCUSATE SODIUM 100 MG CAP PO SCH ×2 (08:59→21:35)
[2020-11-19] MEDS: THIAMINE 100 MG TAB PO SCH (08:59)
[2020-11-19] MEDS: HEPARIN 5,000 UNIT/1 ML VIAL SUB-Q SCH ×2 (09:00→21:35)
[2020-11-19] MEDS: NICOTINE 14 MG/24 HR PATCH TD SCH (09:00)
[2020-11-19] MEDS: MULTIVITAMINS ,THERAPEUTIC TAB PO SCH (09:00)
[2020-11-19] MEDS: cloNIDine TTS 0.2 MG/24 HR PATCH TD SCH (11:00)
[2020-11-19] MEDS: LORazepam 2 MG/ML VIAL IV PRN (11:31)
[2020-11-20] MEDS: PENICILLIN G POTASSIUM 4 MIL.UNITS in SODIUM CHLORIDE 0.9% 50 ML IV SCH ×6 (01:39→21:48)
--- NOTE | 2020-11-20 08:29 | Progress Note ---
Assessment and Plan Assessment and plan: Syphilis. Late latent versus neurosyphilis. Toxic metabolic encephalopathy. Etiology secondary to sepsis versus hyponatremia. 11/17/2020. Patient reportedly declined LP. ID started penicillin G 4,000,000 units every 4 hours or 20,000,000 units as continuous infusion daily for 14 days ending on 11/28. Midline ordered. Will discuss with case management possibility of patient receiving IV penicillin in a rehab facility versus LTAC. However, patient unfunded. 11/18/2020. Cont. penicillin G 4,000,000 units every 4 hours or 20,000,000 units as continuous infusion daily for 14 days ending on 11/28. Midline ordered. Will discuss with case management possibility of patient receiving IV penicillin in a rehab facility versus LTAC. However, patient unfunded. 11/19/2020. Continue IV penicillin G 4,000,000 units every 4 hours as continuous infusion daily for 14 days ending 11/28/2020. Midline ordered. Plan discussed with the sister. Patient is unfunded. 11/20/2020. Continue IV penicillin per ID recommendations. History Interval history: Confusion has improved. No new issues overnight. Hospitalist Physical - Constitutional Vitals: Temp Pulse Resp BP Pulse Ox 97.8 F 73 20 143/84 100 11/20/20 04:42 11/20/20 04:42 11/20/20 04:42 11/20/20 04:42 11/20/20 04:42 General appearance: Present: no acute distress, well-nourished - EENT Eyes: Present: PERRL, EOM intact ENT: hearing intact, clear oral mucosa, dentition normal - Neck Neck: Present: supple, normal ROM - Respiratory Respiratory effort: normal Respiratory: bilateral: CTA - Cardiovascular Rhythm: regular Heart Sounds: Present: S1 & S2. Absent: gallop, rub - Extremities Extremities: no ischemia, No edema, Full ROM - Abdominal General gastrointestinal: soft, non-tender, non-distended, normal bowel sounds - Integumentary Integumentary: Present: clear, warm, dry - Neurologic Neurologic: CNII-XII intact, moves all extremities HEART Score - HEART Score Troponin: Troponin T < 0.010 ng/mL (0.00-0.029) 11/11/20 20:06 Results - Labs CBC & Chem 7: 11/17/20 07:28 11/17/20 07:28 Labs: Laboratory Last Values WBC 5.4 K/mm3 (4.5-11.0) 11/17/20 07:28 RBC 3.08 M/mm3 (3.65-5.03) L 11/17/20 07:28 Hgb 10.8 gm/dl (11.8-15.2) L 11/17/20 07:28 Hct 30.9 % (35.5-45.6) L 11/17/20 07:28 MCV 100 fl (84-94) H 11/17/20 07:28 MCH 35 pg (28-32) H 11/17/20 07:28 MCHC 35 % (32-34) H 11/17/20 07:28 RDW 13.8 % (13.2-15.2) 11/17/20 07:28 Plt Count 239 K/mm3 (140-440) 11/17/20 07:28 Lymph % (Auto) 10.8 % (13.4-35.0) L 11/13/20 07:18 [place] % (Auto) 10.9 % (0.0-7.3) H 11/13/20 07:18 Eos % (Auto) 1.8 % (0.0-4.3) 11/13/20 07:18 Baso % (Auto) 0.4 % (0.0-1.8) 11/13/20 07:18 Lymph # (Auto) 0.8 K/mm3 (1.2-5.4) L 11/13/20 07:18 [place] # (Auto) 0.8 K/mm3 (0.0-0.8) 11/13/20 07:18 Eos # (Auto) 0.1 K/mm3 (0.0-0.4) 11/13/20 07:18 Baso # (Auto) 0.0 K/mm3 (0.0-0.1) 11/13/20 07:18 Seg Neutrophils % 76.1 % (40.0-70.0) H 11/13/20 07:18 Seg Neutrophils # 5.8 K/mm3 (1.8-7.7) 11/13/20 07:18 PT 12.7 Sec. (12.2-14.9) 11/11/20 20:06 INR 0.96 (0.87-1.13) 11/11/20 20:06 APTT 30.5 Sec. (24.2-36.6) 11/11/20 20:06 Sodium 130 mmol/L (137-145) L 11/17/20 07:28 Potassium 4.7 mmol/L (3.6-5.0) 11/17/20 07:28 Chloride 95.9 mmol/L (98-107) L 11/17/20 07:28 Carbon Dioxide 26 mmol/L (22-30) 11/17/20 07:28 Anion Gap 13 mmol/L 11/17/20 07:28 BUN 13 mg/dL (9-20) 11/17/20 07:28 Creatinine 0.6 mg/dL (0.8-1.3) L 11/17/20 07:28 Estimated GFR > 60 ml/min 11/17/20 07:28 BUN/Creatinine Ratio 22 % 11/17/20 07:28 Glucose 88 mg/dL (75-100) 11/17/20 07:28 Hemoglobin A1c 4.7 % (4-6) 11/12/20 02:58 Osmolality 268 Mosm/kg 11/12/20 02:58 Lactic Acid 1.00 mmol/L (0.7-2.0) 11/11/20 20:06 Calcium 8.6 mg/dL (8.4-10.2) 11/17/20 07:28 Phosphorus 3.30 mg/dL (2.5-4.5) 11/12/20 02:58 Magnesium 1.20 mg/dL (1.7-2.3) L 11/12/20 02:58 Ferritin 272.0 ng/mL (30.0-300.0) 11/12/20 06:42 Total Bilirubin 0.30 mg/dL (0.1-1.2) 11/11/20 20:06 AST 29 units/L (5-40) 11/11/20 20:06 ALT 27 units/L (7-56) 11/11/20 20:06 Alkaline Phosphatase 85 units/L (35-129) 11/11/20 20:06 Ammonia 38.0 umol/L (25-60) 11/11/20 20:06 Total Creatine Kinase 141 units/L (55-170) 11/11/20 20:06 Troponin T < 0.010 ng/mL (0.00-0.029) 11/11/20 20:06 Total Protein 6.1 g/dL (6.3-8.2) L 11/11/20 20:06 Albumin 3.9 g/dL (3.9-5) 11/11/20 20:06 Albumin/Globulin Ratio 1.8 % 11/11/20 20:06 Vitamin B1 24 nmol/L (8-30) 11/12/20 17:54 Vitamin B12 505.1 pg/mL (211-911) 11/12/20 17:54 TSH 1.280 mlU/mL (0.270-4.200) 11/12/20 17:54 Urine Color Yellow (Yellow) 11/12/20 01:12 Urine Turbidity Clear (Clear) 11/12/20 01:12 Urine pH 5.0 (5.0-7.0) 11/12/20 01:12 Ur Specific [place] 1.012 (1.003-1.030) 11/12/20 01:12 Urine Protein <15 mg/dl mg/dL (Negative) 11/12/20 01:12 Urine Glucose (UA) Neg mg/dL (Negative) 11/12/20 01:12 Urine Ketones Neg mg/dL (Negative) 11/12/20 01:12 Urine Blood Neg (Negative) 11/12/20 01:12 Urine Nitrite Neg (Negative) 11/12/20 01:12 Urine Bilirubin Neg (Negative) 11/12/20 01:12 Urine Urobilinogen < 2.0 mg/dL (<2.0) 11/12/20 01:12 Ur Leukocyte Esterase Neg (Negative) 11/12/20 01:12 Urine WBC (Auto) 1.0 /HPF (0.0-6.0) 11/12/20 01:12 Urine RBC (Auto) 1.0 /HPF (0.0-6.0) 11/12/20 01:12 Urine Mucus Few /HPF 11/12/20 01:12 Urine Osmolality 149 Mosm/kg 11/12/20 12:19 Salicylates < 0.3 mg/dL (2.8-20.0) L 11/11/20 20:06 Urine Opiates Screen Negative 11/12/20 12:19 Urine Methadone Screen Negative 11/12/20 12:19 Acetaminophen 5.0 ug/mL (10.0-30.0) L 11/11/20 20:06 Ur Barbiturates Screen Negative 11/12/20 12:19 Ur Phencyclidine Scrn Negative 11/12/20 12:19 Ur Amphetamines Screen Negative 11/12/20 12:19 U Benzodiazepines Scrn Negative 11/12/20 12:19 Urine Cocaine Screen Negative 11/12/20 12:19 U Marijuana (THC) Screen Negative 11/12/20 12:19 Drugs of Abuse Note Disclamer 11/12/20 12:19 Plasma/Serum Alcohol < 0.01 % (0-0.07) 11/11/20 20:06 Syphilis IgG Antibody Reactive (NonReactive) A 11/12/20 17:54 RPR Titer 1:8 11/12/20 17:54 T.pallidum Ab (FTA-ABS) Reactive (Nonreactive) H 11/12/20 17:54 Coronavirus (PCR) Negative (Negative) 11/14/20 Unknown HIV 1&2 Antibody Rapid Non react (Non React) 11/12/20 17:54 HIV P24 Antigen Non react (Non React) 11/12/20 17:54 [place]/IV: Voiding Method Toilet Active Medications - Current Medications Current Medications: Generic Name Dose Route Start Last Admin Trade Name Freq PRN Reason Stop Dose Admin Acetaminophen 650 mg 11/12/20 02:41 11/17/20 01:45 Acetaminophen 325 Mg Tab PO 650 mg Q4H PRN Administration Pain MILD(1-3)/Fever >100.5/ALMENDAREZ Amlodipine Besylate 10 mg 11/12/20 10:00 11/19/20 08:59 Amlodipine 10 Mg Tab PO 10 mg QDAY GIULIA Administration Clonidine HCl 0.2 mg 11/12/20 11:00 11/19/20 11:00 Clonidine Tts 0.2 Mg/24 Hr Patch TD 0.2 mg Th GIULIA Administration Docusate Sodium 100 mg 11/12/20 10:00 11/19/20 21:35 Docusate Sodium 100 Mg Cap PO 100 mg BID GIULIA Administration Folic Acid 1 mg 11/12/20 10:00 11/19/20 08:59 Folic Acid 1 Mg Tab PO 1 mg QDAY GIULIA Administration Heparin Sodium (Porcine) 5,000 unit 11/12/20 10:00 11/19/20 21:35 Heparin 5,000 Unit/1 Ml Vial SUB-Q 5,000 unit Q12HR GIULIA Administration Penicillin G Potassium 4 mil. 50 mls @ 100 mls/hr 11/14/20 14:00 11/20/20 05:52 units/ Sodium Chloride IV 11/28/20 10:29 100 mls/hr Q4HR GIULIA Administration Lorazepam 2 mg 11/12/20 02:43 11/19/20 11:31 Lorazepam 2 Mg/Ml Vial IV 2 mg Q1H PRN Administration [facility] 8-15 Multivitamins 1 each 11/12/20 10:00 11/19/20 09:00 Multivitamins ,Therapeutic Tab PO 1 each QDAY GIULIA Administration Nicotine 14 mg 11/12/20 10:00 11/19/20 09:00 Nicotine 14 Mg/24 Hr Patch TD 14 mg QDAY GIULIA Administration Ondansetron HCl 4 mg 11/12/20 02:41 Ondansetron 4 Mg/2 Ml Inj IV Q8H PRN Nausea And Vomiting Sodium Chloride 10 ml 11/12/20 10:00 11/19/20 21:36 Sodium Chloride 0.9% 10 Ml Flush Syringe IV 10 ml BID GILUIA Administration Sodium Chloride 10 ml 11/12/20 02:41 11/12/20 05:39 Sodium Chloride 0.9% 10 Ml Flush Syringe IV 10 ml PRN PRN Administration LINE FLUSH Thiamine HCl 100 mg 11/12/20 10:00 11/19/20 08:59 Thiamine 100 Mg Tab PO 100 mg QDAY GIULIA Administration Nutrition/Malnutrition Assess - Dietary Evaluation Nutrition/Malnutrition Findings: Nutrition Notes Start: 11/12/20 09:53 Freq: Status: Active Protocol: Document 11/16/20 09:12 (Rec: 11/16/20 09:15 [id number]) Nutrition Notes Initial or Follow up Reassessment Current Diagnosis Hypertension Other Pertinent Diagnosis AMS, Neuropathy, Depression, hx EtOH abuse, Metabolic Encephalopathy Current Diet Cardiac Diet Labs/Tests Na 133 Pertinent Medications Reviewed Height 5 ft 10 in Weight 78.84 kg [place] Body Weight (kg) 75.45 BMI 24.9 Weight Status Appropriate Subjective/Other Information FU for intakes. Pt reports enjoying the ONS and would like to continue both of them. Pt eating 100% of meals. Percent of energy/protein needs met: 100%/100% Burn Absent Trauma Absent Current % PO Good (75-100%) Minimum of two criteria No physical signs of malnutrition #1 Nutrition Diagnosis Inadequate oral intake As Evidenced by Signs and Symptoms pt eating 100% of meals Diagnosis Progress(for reassessment Resolved documentation) Is patient on ventilator? No Is Patient Ambulatory and/or Out of Bed No REE-([facility]-confined to bed) [phone] Calculation Used for Recommendations [facility] Additional Notes PRO needs: 60-75g (0.8-1g/kg) Fluid needs: 1mL/kcal or per MD Nutrition Intervention Change Diet Order: Continue Add Supplement/Snack (indicate name/kcal Ensure Enlive BID /protein ) Provides kCal: 700 Provides Protein (gm) 40 Goal #1 Meet at least 75% of EER and protein needs via diet and ONS Anticipated Discharge Needs: Cardiac diet Follow-Up By: 11/20/20 Additional Comments FU for stable intakes and ONS tolerance
[2020-11-20] MEDS: HEPARIN 5,000 UNIT/1 ML VIAL SUB-Q SCH ×2 (09:45→21:49)
[2020-11-20] MEDS: MULTIVITAMINS ,THERAPEUTIC TAB PO SCH (09:46)
[2020-11-20] MEDS: amLODIPine 10 MG TAB PO SCH (09:46)
[2020-11-20] MEDS: THIAMINE 100 MG TAB PO SCH (09:46)
[2020-11-20] MEDS: DOCUSATE SODIUM 100 MG CAP PO SCH ×2 (09:46→21:49)
[2020-11-20] MEDS: FOLIC ACID 1 MG TAB PO SCH (09:48)
[2020-11-20] MEDS: NICOTINE 14 MG/24 HR PATCH TD SCH (09:48)
[2020-11-20] MEDS: LORazepam 2 MG/ML VIAL IV PRN (09:59)
[2020-11-21] MEDS: PENICILLIN G POTASSIUM 4 MIL.UNITS in SODIUM CHLORIDE 0.9% 50 ML IV SCH ×8 (02:55→22:36)
[2020-11-21 06:38] LABS: Mean Corpuscular HGB Conc 37 % (32-34); Mean Corpuscular Volume 101 fl (84-94); Platelet Count 350 K/mm3 (140-440); Red Blood Count 3.07 M/mm3 (3.65-5.03); Red Cell Distribution Width 13.8 % (13.2-15.2)
[2020-11-21 06:39] LABS: Hematocrit 31.1 % (35.5-45.6); Hemoglobin 11.4 gm/dl (11.8-15.2)
[2020-11-21 06:45] LABS: Blood Urea Nitrogen 17 mg/dL (9-20); Calcium 9.6 mg/dL (8.4-10.2); Hemolysis Index 11
[2020-11-21 06:54] LABS: BUN/Creatinine Ratio 24
--- NOTE | 2020-11-21 07:54 | Progress Note ---
Assessment and Plan Assessment and plan: Syphilis. Late latent versus neurosyphilis. Toxic metabolic encephalopathy. Etiology secondary to sepsis versus hyponatremia. 11/17/2020. Patient reportedly declined LP. ID started penicillin G 4,000,000 units every 4 hours or 20,000,000 units as continuous infusion daily for 14 days ending on 11/28. Midline ordered. Will discuss with case management possibility of patient receiving IV penicillin in a rehab facility versus LTAC. However, patient unfunded. 11/18/2020. Cont. penicillin G 4,000,000 units every 4 hours or 20,000,000 units as continuous infusion daily for 14 days ending on 11/28. Midline ordered. Will discuss with case management possibility of patient receiving IV penicillin in a rehab facility versus LTAC. However, patient unfunded. 11/19/2020. Continue IV penicillin G 4,000,000 units every 4 hours as continuous infusion daily for 14 days ending 11/28/2020. Midline ordered. Plan discussed with the sister. Patient is unfunded. 11/20/2020. Continue IV penicillin per ID recommendations. 11/21/2020. Continue IV penicillin per ID recommendations. Patient with unf ortunate social issues. Per case management, sister reports patient has been evicted and will need assistance in finding somewhere to live. Patient is also unfunded. History Interval history: Confusion has improved. No new issues overnight. Hospitalist Physical - Constitutional Vitals: Temp Pulse Resp BP Pulse Ox 97.5 F L 71 18 136/79 99 11/21/20 04:38 11/21/20 04:38 11/21/20 04:38 11/21/20 04:38 11/21/20 04:38 General appearance: Present: no acute distress, well-nourished - EENT Eyes: Present: PERRL, EOM intact ENT: hearing intact, clear oral mucosa, dentition normal - Neck Neck: Present: supple, normal ROM - Respiratory Respiratory effort: normal Respiratory: bilateral: CTA - Cardiovascular Rhythm: regular Heart Sounds: Present: S1 & S2. Absent: gallop, rub - Extremities Extremities: no ischemia, No edema, Full ROM - Abdominal General gastrointestinal: soft, non-tender, non-distended, normal bowel sounds - Integumentary Integumentary: Present: clear, warm, dry - Neurologic Neurologic: CNII-XII intact, moves all extremities HEART Score - HEART Score Troponin: Troponin T < 0.010 ng/mL (0.00-0.029) 11/11/20 20:06 Results - Labs CBC & Chem 7: 11/21/20 05:29 11/21/20 05:29 Labs: Laboratory Last Values WBC 9.2 K/mm3 (4.5-11.0) 11/21/20 05:29 RBC 3.07 M/mm3 (3.65-5.03) L 11/21/20 05:29 Hgb 11.4 gm/dl (11.8-15.2) L 11/21/20 05:29 Hct 31.1 % (35.5-45.6) L 11/21/20 05:29 MCV 101 fl (84-94) H 11/21/20 05:29 MCH 37 pg (28-32) H 11/21/20 05:29 MCHC 37 % (32-34) H 11/21/20 05:29 RDW 13.8 % (13.2-15.2) 11/21/20 05:29 Plt Count 350 K/mm3 (140-440) 11/21/20 05:29 Lymph % (Auto) 10.8 % (13.4-35.0) L 11/13/20 07:18 [place] % (Auto) 10.9 % (0.0-7.3) H 11/13/20 07:18 Eos % (Auto) 1.8 % (0.0-4.3) 11/13/20 07:18 Baso % (Auto) 0.4 % (0.0-1.8) 11/13/20 07:18 Lymph # (Auto) 0.8 K/mm3 (1.2-5.4) L 11/13/20 07:18 [place] # (Auto) 0.8 K/mm3 (0.0-0.8) 11/13/20 07:18 Eos # (Auto) 0.1 K/mm3 (0.0-0.4) 11/13/20 07:18 Baso # (Auto) 0.0 K/mm3 (0.0-0.1) 11/13/20 07:18 Seg Neutrophils % 76.1 % (40.0-70.0) H 11/13/20 07:18 Seg Neutrophils # 5.8 K/mm3 (1.8-7.7) 11/13/20 07:18 PT 12.7 Sec. (12.2-14.9) 11/11/20 20:06 INR 0.96 (0.87-1.13) 11/11/20 20:06 APTT 30.5 Sec. (24.2-36.6) 11/11/20 20:06 Sodium 137 mmol/L (137-145) D 11/21/20 05:29 Potassium 4.4 mmol/L (3.6-5.0) 11/21/20 05:29 Chloride 98.6 mmol/L (98-107) 11/21/20 05:29 Carbon Dioxide 26 mmol/L (22-30) 11/21/20 05:29 Anion Gap 17 mmol/L 11/21/20 05:29 BUN 17 mg/dL (9-20) 11/21/20 05:29 Creatinine 0.7 mg/dL (0.8-1.3) L 11/21/20 05:29 Estimated GFR > 60 ml/min 11/21/20 05:29 BUN/Creatinine Ratio 24 % 11/21/20 05:29 Glucose 95 mg/dL (75-100) 11/21/20 05:29 Hemoglobin A1c 4.7 % (4-6) 11/12/20 02:58 Osmolality 268 Mosm/kg 11/12/20 02:58 Lactic Acid 1.00 mmol/L (0.7-2.0) 11/11/20 20:06 Calcium 9.6 mg/dL (8.4-10.2) 11/21/20 05:29 Phosphorus 3.30 mg/dL (2.5-4.5) 11/12/20 02:58 Magnesium 1.20 mg/dL (1.7-2.3) L 11/12/20 02:58 Ferritin 272.0 ng/mL (30.0-300.0) 11/12/20 06:42 Total Bilirubin 0.30 mg/dL (0.1-1.2) 11/11/20 20:06 AST 29 units/L (5-40) 11/11/20 20:06 ALT 27 units/L (7-56) 11/11/20 20:06 Alkaline Phosphatase 85 units/L (35-129) 11/11/20 20:06 Ammonia 38.0 umol/L (25-60) 11/11/20 20:06 Total Creatine Kinase 141 units/L (55-170) 11/11/20 20:06 Troponin T < 0.010 ng/mL (0.00-0.029) 11/11/20 20:06 Total Protein 6.1 g/dL (6.3-8.2) L 11/11/20 20:06 Albumin 3.9 g/dL (3.9-5) 11/11/20 20:06 Albumin/Globulin Ratio 1.8 % 11/11/20 20:06 Vitamin B1 24 nmol/L (8-30) 11/12/20 17:54 Vitamin B12 505.1 pg/mL (211-911) 11/12/20 17:54 TSH 1.280 mlU/mL (0.270-4.200) 11/12/20 17:54 Urine Color Yellow (Yellow) 11/12/20 01:12 Urine Turbidity Clear (Clear) 11/12/20 01:12 Urine pH 5.0 (5.0-7.0) 11/12/20 01:12 Ur Specific [place] 1.012 (1.003-1.030) 11/12/20 01:12 Urine Protein <15 mg/dl mg/dL (Negative) 11/12/20 01:12 Urine Glucose (UA) Neg mg/dL (Negative) 11/12/20 01:12 Urine Ketones Neg mg/dL (Negative) 11/12/20 01:12 Urine Blood Neg (Negative) 11/12/20 01:12 Urine Nitrite Neg (Negative) 11/12/20 01:12 Urine Bilirubin Neg (Negative) 11/12/20 01:12 Urine Urobilinogen < 2.0 mg/dL (<2.0) 11/12/20 01:12 Ur Leukocyte Esterase Neg (Negative) 11/12/20 01:12 Urine WBC (Auto) 1.0 /HPF (0.0-6.0) 11/12/20 01:12 Urine RBC (Auto) 1.0 /HPF (0.0-6.0) 11/12/20 01:12 Urine Mucus Few /HPF 11/12/20 01:12 Urine Osmolality 149 Mosm/kg 11/12/20 12:19 Salicylates < 0.3 mg/dL (2.8-20.0) L 11/11/20 20:06 Urine Opiates Screen Negative 11/12/20 12:19 Urine Methadone Screen Negative 11/12/20 12:19 Acetaminophen 5.0 ug/mL (10.0-30.0) L 11/11/20 20:06 Ur Barbiturates Screen Negative 11/12/20 12:19 Ur Phencyclidine Scrn Negative 11/12/20 12:19 Ur Amphetamines Screen Negative 11/12/20 12:19 U Benzodiazepines Scrn Negative 11/12/20 12:19 Urine Cocaine Screen Negative 11/12/20 12:19 U Marijuana (THC) Screen Negative 11/12/20 12:19 Drugs of Abuse Note Disclamer 11/12/20 12:19 Plasma/Serum Alcohol < 0.01 % (0-0.07) 11/11/20 20:06 Syphilis IgG Antibody Reactive (NonReactive) A 11/12/20 17:54 RPR Titer 1:8 11/12/20 17:54 T.pallidum Ab (FTA-ABS) Reactive (Nonreactive) H 11/12/20 17:54 Coronavirus (PCR) Negative (Negative) 11/14/20 Unknown HIV 1&2 Antibody Rapid Non react (Non React) 11/12/20 17:54 HIV P24 Antigen Non react (Non React) 11/12/20 17:54 [place]/IV: Voiding Method Toilet Active Medications - Current Medications Current Medications: Generic Name Dose Route Start Last Admin Trade Name Freq PRN Reason Stop Dose Admin Acetaminophen 650 mg 11/12/20 02:41 11/17/20 01:45 Acetaminophen 325 Mg Tab PO 650 mg Q4H PRN Administration Pain MILD(1-3)/Fever >100.5/ALMENDAREZ Amlodipine Besylate 10 mg 11/12/20 10:00 11/20/20 09:46 Amlodipine 10 Mg Tab PO 10 mg QDAY GIULIA Administration Clonidine HCl 0.2 mg 11/12/20 11:00 11/19/20 11:00 Clonidine Tts 0.2 Mg/24 Hr Patch TD 0.2 mg Th GIULIA Administration Docusate Sodium 100 mg 11/12/20 10:00 11/20/20 21:49 Docusate Sodium 100 Mg Cap PO 100 mg BID GIULIA Administration Folic Acid 1 mg 11/12/20 10:00 11/20/20 09:48 Folic Acid 1 Mg Tab PO 1 mg QDAY GIULIA Administration Heparin Sodium (Porcine) 5,000 unit 11/12/20 10:00 11/20/20 21:49 Heparin 5,000 Unit/1 Ml Vial SUB-Q 5,000 unit Q12HR GIULIA Administration Penicillin G Potassium 4 mil. 50 mls @ 100 mls/hr 11/14/20 14:00 11/21/20 02:55 units/ Sodium Chloride IV 11/28/20 10:29 100 mls/hr Q4HR GIULIA Administration Lorazepam 2 mg 11/12/20 02:43 11/20/20 09:59 Lorazepam 2 Mg/Ml Vial IV 2 mg Q1H PRN Administration Amairani 8-15 Multivitamins 1 each 11/12/20 10:00 11/20/20 09:46 Multivitamins ,Therapeutic Tab PO 1 each QDAY GIULIA Administration Nicotine 14 mg 11/12/20 10:00 11/20/20 09:48 Nicotine 14 Mg/24 Hr Patch TD 14 mg QDAY GIULIA Administration Ondansetron HCl 4 mg 11/12/20 02:41 Ondansetron 4 Mg/2 Ml Inj IV Q8H PRN Nausea And Vomiting Sodium Chloride 10 ml 11/12/20 10:00 11/20/20 21:49 Sodium Chloride 0.9% 10 Ml Flush Syringe IV 10 ml BID GIULIA Administration Sodium Chloride 10 ml 11/12/20 02:41 11/12/20 05:39 Sodium Chloride 0.9% 10 Ml Flush Syringe IV 10 ml PRN PRN Administration LINE FLUSH Thiamine HCl 100 mg 11/12/20 10:00 11/20/20 09:46 Thiamine 100 Mg Tab PO 100 mg QDAY GIULIA Administration Nutrition/Malnutrition Assess - Dietary Evaluation Nutrition/Malnutrition Findings: Nutrition Notes Start: 11/12/20 09:53 Freq: Status: Active Protocol: Document 11/20/20 10:15 AT (Rec: 11/20/20 10:31 AT [id number]) Co-Sign 11/20/20 10:15 MK Nutrition Notes Need for Assessment generated from: Education Initial or Follow up Reassessment Current Diagnosis Hypertension Other Pertinent Diagnosis AMS, Neuropathy, Depression, hx EtOH abuse, Metabolic Encephalopathy Current Diet Cardiac Diet Labs/Tests 11/17 Na 130 Cr 0.6 Hgb 10.8 Pertinent Medications Reviewed Height 5 ft 10 in Weight 79.1 kg Usual Body Weight 68.18 kg [place] Body Weight (kg) 75.45 BMI 25.0 Weight Status Overweight Subjective/Other Information Follow up for stable intakes and ONS tolerance. Pt reports consuming between 80-85% of breakfast this morning. Pt has intakes of 100% x 5 days in the chart. Pt would like to remain on ONS. Pt does not typically eat 3 meals per day outside of the hospital. Pt feels positive about weight gain. Meals and ONS are providing over nutrition. Will reduce ONS to 1 daily; pt reports drinking Nutrimen at home. Straddle Bug Operator went over general healthy nutrition and heart healthy nutrition, pt refused handout due to inability to see well without reading glasses. Percent of energy/protein needs met: 100%/100% Burn Absent Trauma Absent GI Symptoms None Current % PO Good (75-100%) Minimum of two criteria No physical signs of malnutrition #2 Nutrition Diagnosis Limited adherence to nutrition -related recommendations Etiology HTN, EtOH abuse As Evidenced by Signs and Symptoms pt had questions, no previous diet education Is patient on ventilator? No Is Patient Ambulatory and/or Out of Bed Yes REE-([facility]-ambulatory/OOB) [ [id number] [id number]] Calculation Used for Recommendations [facility] Additional Notes PRO needs: 63-79g (0.8-1g/kg) Fluid needs: 1mL/kcal or per MD Nutrition Intervention Change Diet Order: Continue current Add Supplement/Snack (indicate name/kcal Ensure daily /protein ) Provides kCal: 350 Provides Protein (gm) 20 Teaching Recipient Patient Learning Readiness Good Teaching Methods Discussion Response to Teaching Verbalize understanding Barriers to Learning Visual RD phone number provided Yes Patient aware of follow up options Yes Goal #1 Meet at least 75% of EER and protein needs via diet and ONS Goal #2 Understanding the importance of adhering to a Cardiac Diet and limiting EtOH intake Anticipated Discharge Needs: Cardiac diet with ONS PRN Follow-Up By: 11/27/20 Additional Comments F/U stable intakes
[2020-11-21 08:17] LABS: Total Cells Counted 100
[2020-11-21 08:18] LABS: Platelet Estimate Consistent w Auto; RBC Morphology Normal
[2020-11-21] MEDS: FOLIC ACID 1 MG TAB PO SCH (10:34)
[2020-11-21] MEDS: DOCUSATE SODIUM 100 MG CAP PO SCH ×2 (10:34→22:32)
[2020-11-21] MEDS: THIAMINE 100 MG TAB PO SCH (10:34)
[2020-11-21] MEDS: NICOTINE 14 MG/24 HR PATCH TD SCH (10:34)
[2020-11-21] MEDS: HEPARIN 5,000 UNIT/1 ML VIAL SUB-Q SCH ×2 (10:35→22:32)
[2020-11-21] MEDS: MULTIVITAMINS ,THERAPEUTIC TAB PO SCH (10:35)
[2020-11-21] MEDS: amLODIPine 10 MG TAB PO SCH (11:18)
[2020-11-21] MEDS: LORazepam 2 MG/ML VIAL IV PRN (16:04)
--- NOTE | 2020-11-22 07:52 | Progress Note ---
Assessment and Plan Assessment and plan: Syphilis. Late latent versus neurosyphilis. Toxic metabolic encephalopathy. Etiology secondary to sepsis versus hyponatremia. 11/17/2020. Patient reportedly declined LP. ID started penicillin G 4,000,000 units every 4 hours or 20,000,000 units as continuous infusion daily for 14 days ending on 11/28. Midline ordered. Will discuss with case management possibility of patient receiving IV penicillin in a rehab facility versus LTAC. However, patient unfunded. 11/18/2020. Cont. penicillin G 4,000,000 units every 4 hours or 20,000,000 units as continuous infusion daily for 14 days ending on 11/28. Midline ordered. Will discuss with case management possibility of patient receiving IV penicillin in a rehab facility versus LTAC. However, patient unfunded. 11/19/2020. Continue IV penicillin G 4,000,000 units every 4 hours as continuous infusion daily for 14 days ending 11/28/2020. Midline ordered. Plan discussed with the sister. Patient is unfunded. 11/20/2020. Continue IV penicillin per ID recommendations. 11/21/2020. Continue IV penicillin per ID recommendations. Patient with unf ortunate social issues. Per case management, sister reports patient has been evicted and will need assistance in finding somewhere to live. Patient is also unfunded. 11/22/2020. Patient still remains somewhat confused. Continue IV penicillin per ID recommendations. Patient with unfortunate social issues. Per case management, sister reports patient has been evicted and will need assistance in finding somewhere to live. Patient is also unfunded. History Interval history: Confusion has improved. No new issues overnight. Hospitalist Physical - Constitutional Vitals: Temp Pulse Resp BP Pulse Ox 98.0 F 77 18 124/76 98 11/22/20 03:51 11/22/20 03:51 11/22/20 03:51 11/22/20 03:51 11/22/20 03:51 General appearance: Present: no acute distress, well-nourished - EENT Eyes: Present: PERRL, EOM intact ENT: hearing intact, clear oral mucosa, dentition normal - Neck Neck: Present: supple, normal ROM - Respiratory Respiratory effort: normal Respiratory: bilateral: CTA - Cardiovascular Rhythm: regular Heart Sounds: Present: S1 & S2. Absent: gallop, rub - Extremities Extremities: no ischemia, No edema, Full ROM - Abdominal General gastrointestinal: soft, non-tender, non-distended, normal bowel sounds - Integumentary Integumentary: Present: clear, warm, dry - Neurologic Neurologic: CNII-XII intact, moves all extremities HEART Score - HEART Score Troponin: Troponin T < 0.010 ng/mL (0.00-0.029) 11/11/20 20:06 Results - Labs CBC & Chem 7: 11/21/20 05:29 11/21/20 05:29 Labs: Laboratory Last Values WBC 9.2 K/mm3 (4.5-11.0) 11/21/20 05:29 RBC 3.07 M/mm3 (3.65-5.03) L 11/21/20 05:29 Hgb 11.4 gm/dl (11.8-15.2) L 11/21/20 05:29 Hct 31.1 % (35.5-45.6) L 11/21/20 05:29 MCV 101 fl (84-94) H 11/21/20 05:29 MCH 37 pg (28-32) H 11/21/20 05:29 MCHC 37 % (32-34) H 11/21/20 05:29 RDW 13.8 % (13.2-15.2) 11/21/20 05:29 Plt Count 350 K/mm3 (140-440) 11/21/20 05:29 Lymph % (Auto) 10.8 % (13.4-35.0) L 11/13/20 07:18 [place] % (Auto) 10.9 % (0.0-7.3) H 11/13/20 07:18 Eos % (Auto) 1.8 % (0.0-4.3) 11/13/20 07:18 Baso % (Auto) 0.4 % (0.0-1.8) 11/13/20 07:18 Lymph # (Auto) 0.8 K/mm3 (1.2-5.4) L 11/13/20 07:18 [place] # (Auto) 0.8 K/mm3 (0.0-0.8) 11/13/20 07:18 Eos # (Auto) 0.1 K/mm3 (0.0-0.4) 11/13/20 07:18 Baso # (Auto) 0.0 K/mm3 (0.0-0.1) 11/13/20 07:18 Add Manual Diff Complete 11/21/20 05:29 Total Counted 100 11/21/20 05:29 Seg Neutrophils % 76.1 % (40.0-70.0) H 11/13/20 07:18 Seg Neuts % (Manual) 68.0 % (40.0-70.0) 11/21/20 05:29 Lymphocytes % (Manual) 14.0 % (13.4-35.0) 11/21/20 05:29 Monocytes % (Manual) 12.0 % (0.0-7.3) H 11/21/20 05:29 Eosinophils % (Manual) 1.0 % (0.0-4.3) 11/21/20 05:29 Basophils % (Manual) 4.0 % (0.0-1.8) H 11/21/20 05:29 Metamyelocytes % 1.0 % 11/21/20 05:29 Nucleated RBC % Not Reportable 11/21/20 05:29 Seg Neutrophils # 5.8 K/mm3 (1.8-7.7) 11/13/20 07:18 Seg Neutrophils # Man 6.3 K/mm3 (1.8-7.7) 11/21/20 05:29 Band Neutrophils # 0.0 K/mm3 11/21/20 05:29 Lymphocytes # (Manual) 1.3 K/mm3 (1.2-5.4) 11/21/20 05:29 Abs React Lymphs (Man) 0.0 K/mm3 11/21/20 05:29 Monocytes # (Manual) 1.1 K/mm3 (0.0-0.8) H 11/21/20 05:29 Eosinophils # (Manual) 0.1 K/mm3 (0.0-0.4) 11/21/20 05:29 Basophils # (Manual) 0.4 K/mm3 (0.0-0.1) H 11/21/20 05:29 Metamyelocytes # 0.1 K/mm3 11/21/20 05:29 Myelocytes # 0.0 K/mm3 11/21/20 05:29 Promyelocytes # 0.0 K/mm3 11/21/20 05:29 Blast Cells # 0.0 K/mm3 11/21/20 05:29 WBC Morphology Not Reportable 11/21/20 05:29 Hypersegmented Neuts Not Reportable 11/21/20 05:29 Hyposegmented Neuts Not Reportable 11/21/20 05:29 Hypogranular Neuts Not Reportable 11/21/20 05:29 Smudge Cells Not Reportable 11/21/20 05:29 Toxic Granulation Not Reportable 11/21/20 05:29 Toxic Vacuolation Not Reportable 11/21/20 05:29 Dohle Bodies Not Reportable 11/21/20 05:29 Pelger-Huet Anomaly Not Reportable 11/21/20 05:29 Damian Rods Not Reportable 11/21/20 05:29 Platelet Estimate Consistent w auto 11/21/20 05:29 Clumped Platelets Not Reportable 11/21/20 05:29 Plt Clumps, EDTA Not Reportable 11/21/20 05:29 Large Platelets Not Reportable 11/21/20 05:29 Giant Platelets Not Reportable 11/21/20 05:29 Platelet Satelliting Not Reportable 11/21/20 05:29 Plt Morphology Comment Not Reportable 11/21/20 05:29 RBC Morphology Normal 11/21/20 05:29 Dimorphic RBCs Not Reportable 11/21/20 05:29 Polychromasia Not Reportable 11/21/20 05:29 Hypochromasia Not Reportable 11/21/20 05:29 Poikilocytosis Not Reportable 11/21/20 05:29 Anisocytosis Not Reportable 11/21/20 05:29 Microcytosis Not Reportable 11/21/20 05:29 Macrocytosis Not Reportable 11/21/20 05:29 Spherocytes Not Reportable 11/21/20 05:29 Pappenheimer Bodies Not Reportable 11/21/20 05:29 Sickle Cells Not Reportable 11/21/20 05:29 Target Cells Not Reportable 11/21/20 05:29 Tear Drop Cells Not Reportable 11/21/20 05:29 Ovalocytes Not Reportable 11/21/20 05:29 Helmet Cells Not Reportable 11/21/20 05:29 Blanco-Radcliffe Bodies Not Reportable 11/21/20 05:29 [place] Rings Not Reportable 11/21/20 05:29 [place] Cells Not Reportable 11/21/20 05:29 Bite Cells Not Reportable 11/21/20 05:29 Crenated Cell Not Reportable 11/21/20 05:29 Elliptocytes Not Reportable 11/21/20 05:29 Acanthocytes (Spur) Not Reportable 11/21/20 05:29 Rouleaux Not Reportable 11/21/20 05:29 Hemoglobin C Crystals Not Reportable 11/21/20 05:29 Schistocytes Not Reportable 11/21/20 05:29 Malaria parasites Not Reportable 11/21/20 05:29 Peter Bodies Not Reportable 11/21/20 05:29 Hem Pathologist Commnt No 11/21/20 05:29 PT 12.7 Sec. (12.2-14.9) 11/11/20 20:06 INR 0.96 (0.87-1.13) 11/11/20 20:06 APTT 30.5 Sec. (24.2-36.6) 11/11/20 20:06 Sodium 137 mmol/L (137-145) D 11/21/20 05:29 Potassium 4.4 mmol/L (3.6-5.0) 11/21/20 05:29 Chloride 98.6 mmol/L (98-107) 11/21/20 05:29 Carbon Dioxide 26 mmol/L (22-30) 11/21/20 05:29 Anion Gap 17 mmol/L 11/21/20 05:29 BUN 17 mg/dL (9-20) 11/21/20 05:29 Creatinine 0.7 mg/dL (0.8-1.3) L 11/21/20 05:29 Estimated GFR > 60 ml/min 11/21/20 05:29 BUN/Creatinine Ratio 24 % 11/21/20 05:29 Glucose 95 mg/dL (75-100) 11/21/20 05:29 Hemoglobin A1c 4.7 % (4-6) 11/12/20 02:58 Osmolality 268 Mosm/kg 11/12/20 02:58 Lactic Acid 1.00 mmol/L (0.7-2.0) 11/11/20 20:06 Calcium 9.6 mg/dL (8.4-10.2) 11/21/20 05:29 Phosphorus 3.30 mg/dL (2.5-4.5) 11/12/20 02:58 Magnesium 1.20 mg/dL (1.7-2.3) L 11/12/20 02:58 Ferritin 272.0 ng/mL (30.0-300.0) 11/12/20 06:42 Total Bilirubin 0.30 mg/dL (0.1-1.2) 11/11/20 20:06 AST 29 units/L (5-40) 11/11/20 20:06 ALT 27 units/L (7-56) 11/11/20 20:06 Alkaline Phosphatase 85 units/L (35-129) 11/11/20 20:06 Ammonia 38.0 umol/L (25-60) 11/11/20 20:06 Total Creatine Kinase 141 units/L (55-170) 11/11/20 20:06 Troponin T < 0.010 ng/mL (0.00-0.029) 11/11/20 20:06 Total Protein 6.1 g/dL (6.3-8.2) L 11/11/20 20:06 Albumin 3.9 g/dL (3.9-5) 11/11/20 20:06 Albumin/Globulin Ratio 1.8 % 11/11/20 20:06 Vitamin B1 24 nmol/L (8-30) 11/12/20 17:54 Vitamin B12 505.1 pg/mL (211-911) 11/12/20 17:54 TSH 1.280 mlU/mL (0.270-4.200) 11/12/20 17:54 Urine Color Yellow (Yellow) 11/12/20 01:12 Urine Turbidity Clear (Clear) 11/12/20 01:12 Urine pH 5.0 (5.0-7.0) 11/12/20 01:12 Ur Specific [place] 1.012 (1.003-1.030) 11/12/20 01:12 Urine Protein <15 mg/dl mg/dL (Negative) 11/12/20 01:12 Urine Glucose (UA) Neg mg/dL (Negative) 11/12/20 01:12 Urine Ketones Neg mg/dL (Negative) 11/12/20 01:12 Urine Blood Neg (Negative) 11/12/20 01:12 Urine Nitrite Neg (Negative) 11/12/20 01:12 Urine Bilirubin Neg (Negative) 11/12/20 01:12 Urine Urobilinogen < 2.0 mg/dL (<2.0) 11/12/20 01:12 Ur Leukocyte Esterase Neg (Negative) 11/12/20 01:12 Urine WBC (Auto) 1.0 /HPF (0.0-6.0) 11/12/20 01:12 Urine RBC (Auto) 1.0 /HPF (0.0-6.0) 11/12/20 01:12 Urine Mucus Few /HPF 11/12/20 01:12 Urine Osmolality 149 Mosm/kg 11/12/20 12:19 Salicylates < 0.3 mg/dL (2.8-20.0) L 11/11/20 20:06 Urine Opiates Screen Negative 11/12/20 12:19 Urine Methadone Screen Negative 11/12/20 12:19 Acetaminophen 5.0 ug/mL (10.0-30.0) L 11/11/20 20:06 Ur Barbiturates Screen Negative 11/12/20 12:19 Ur Phencyclidine Scrn Negative 11/12/20 12:19 Ur Amphetamines Screen Negative 11/12/20 12:19 U Benzodiazepines Scrn Negative 11/12/20 12:19 Urine Cocaine Screen Negative 11/12/20 12:19 U Marijuana (THC) Screen Negative 11/12/20 12:19 Drugs of Abuse Note Disclamer 11/12/20 12:19 Plasma/Serum Alcohol < 0.01 % (0-0.07) 11/11/20 20:06 Syphilis IgG Antibody Reactive (NonReactive) A 11/12/20 17:54 RPR Titer 1:8 11/12/20 17:54 T.pallidum Ab (FTA-ABS) Reactive (Nonreactive) H 11/12/20 17:54 Coronavirus (PCR) Negative (Negative) 11/14/20 Unknown HIV 1&2 Antibody Rapid Non react (Non React) 11/12/20 17:54 HIV P24 Antigen Non react (Non React) 11/12/20 17:54 [place]/IV: Voiding Method Toilet Active Medications - Current Medications Current Medications: Generic Name Dose Route Start Last Admin Trade Name Freq PRN Reason Stop Dose Admin Acetaminophen 650 mg 11/12/20 02:41 11/17/20 01:45 Acetaminophen 325 Mg Tab PO 650 mg Q4H PRN Administration Pain MILD(1-3)/Fever >100.5/ALMENDAREZ Amlodipine Besylate 10 mg 11/12/20 10:00 11/21/20 11:18 Amlodipine 10 Mg Tab PO 10 mg QDAY IGULIA Administration Clonidine HCl 0.2 mg 11/12/20 11:00 11/19/20 11:00 Clonidine Tts 0.2 Mg/24 Hr Patch TD 0.2 mg Th GIULIA Administration Docusate Sodium 100 mg 11/12/20 10:00 11/21/20 22:32 Docusate Sodium 100 Mg Cap PO 100 mg BID GIULIA Administration Folic Acid 1 mg 11/12/20 10:00 11/21/20 10:34 Folic Acid 1 Mg Tab PO 1 mg QDAY GIULIA Administration Heparin Sodium (Porcine) 5,000 unit 11/12/20 10:00 11/21/20 22:32 Heparin 5,000 Unit/1 Ml Vial SUB-Q 5,000 unit Q12HR GIULIA Administration Penicillin G Potassium 4 mil. 50 mls @ 100 mls/hr 11/14/20 14:00 11/21/20 22:36 units/ Sodium Chloride IV 11/28/20 10:29 Infused Q4HR GIULIA Infusion Lorazepam 2 mg 11/12/20 02:43 11/21/20 16:04 Lorazepam 2 Mg/Ml Vial IV 2 mg Q1H PRN Administration KELLEYCody 8-15 Multivitamins 1 each 11/12/20 10:00 11/21/20 10:35 Multivitamins ,Therapeutic Tab PO 1 each QDAY GIULIA Administration Nicotine 14 mg 11/12/20 10:00 11/21/20 10:34 Nicotine 14 Mg/24 Hr Patch TD 14 mg QDAY GIULIA Administration Ondansetron HCl 4 mg 11/12/20 02:41 Ondansetron 4 Mg/2 Ml Inj IV Q8H PRN Nausea And Vomiting Sodium Chloride 10 ml 11/12/20 10:00 11/21/20 10:36 Sodium Chloride 0.9% 10 Ml Flush Syringe IV 10 ml BID GIULIA Administration Sodium Chloride 10 ml 11/12/20 02:41 11/12/20 05:39 Sodium Chloride 0.9% 10 Ml Flush Syringe IV 10 ml PRN PRN Administration LINE FLUSH Thiamine HCl 100 mg 11/12/20 10:00 11/21/20 10:34 Thiamine 100 Mg Tab PO 100 mg QDAY GIULIA Administration Nutrition/Malnutrition Assess - Dietary Evaluation Nutrition/Malnutrition Findings: Nutrition Notes Start: 11/12/20 09:53 Freq: Status: Active Protocol: Document 11/20/20 10:15 AT (Rec: 11/20/20 10:31 AT [id number]) Co-Sign 11/20/20 10:15 MK Nutrition Notes Need for Assessment generated from: Education Initial or Follow up Reassessment Current Diagnosis Hypertension Other Pertinent Diagnosis AMS, Neuropathy, Depression, hx EtOH abuse, Metabolic Encephalopathy Current Diet Cardiac Diet Labs/Tests 11/17 Na 130 Cr 0.6 Hgb 10.8 Pertinent Medications Reviewed Height 5 ft 10 in Weight 79.1 kg Usual Body Weight 68.18 kg [place] Body Weight (kg) 75.45 BMI 25.0 Weight Status Overweight Subjective/Other Information Follow up for stable intakes and ONS tolerance. Pt reports consuming between 80-85% of breakfast this morning. Pt has intakes of 100% x 5 days in the chart. Pt would like to remain on ONS. Pt does not typically eat 3 meals per day outside of the hospital. Pt feels positive about weight gain. Meals and ONS are providing over nutrition. Will reduce ONS to 1 daily; pt reports drinking Nutrimen at home. Bingo Cashier went over general healthy nutrition and heart healthy nutrition, pt refused handout due to inability to see well without reading glasses. Percent of energy/protein needs met: 100%/100% Burn Absent Trauma Absent GI Symptoms None Current % PO Good (75-100%) Minimum of two criteria No physical signs of malnutrition #2 Nutrition Diagnosis Limited adherence to nutrition -related recommendations Etiology HTN, EtOH abuse As Evidenced by Signs and Symptoms pt had questions, no previous diet education Is patient on ventilator? No Is Patient Ambulatory and/or Out of Bed Yes REE-([place]-St. Jeor-ambulatory/OOB) [ [id number] [id number]] Calculation Used for Recommendations [place]-St Jeor Additional Notes PRO needs: 63-79g (0.8-1g/kg) Fluid needs: 1mL/kcal or per MD Nutrition Intervention Change Diet Order: Continue current Add Supplement/Snack (indicate name/kcal Ensure daily /protein ) Provides kCal: 350 Provides Protein (gm) 20 Teaching Recipient Patient Learning Readiness Good Teaching Methods Discussion Response to Teaching Verbalize understanding Barriers to Learning Visual RD phone number provided Yes Patient aware of follow up options Yes Goal #1 Meet at least 75% of EER and protein needs via diet and ONS Goal #2 Understanding the importance of adhering to a Cardiac Diet and limiting EtOH intake Anticipated Discharge Needs: Cardiac diet with ONS PRN Follow-Up By: 11/27/20 Additional Comments F/U stable intakes
[2020-11-22] MEDS: PENICILLIN G POTASSIUM 4 MIL.UNITS in SODIUM CHLORIDE 0.9% 50 ML IV SCH ×4 (10:00→22:46)
[2020-11-22] MEDS: HEPARIN 5,000 UNIT/1 ML VIAL SUB-Q SCH ×2 (11:03→22:46)
[2020-11-22] MEDS: amLODIPine 10 MG TAB PO SCH (11:03)
[2020-11-22] MEDS: THIAMINE 100 MG TAB PO SCH (11:05)
[2020-11-22] MEDS: MULTIVITAMINS ,THERAPEUTIC TAB PO SCH (11:06)
[2020-11-22] MEDS: FOLIC ACID 1 MG TAB PO SCH (11:08)
[2020-11-22] MEDS: DOCUSATE SODIUM 100 MG CAP PO SCH ×2 (11:08→22:48)
[2020-11-22] MEDS: NICOTINE 14 MG/24 HR PATCH TD SCH (12:06)
[2020-11-23] MEDS: PENICILLIN G POTASSIUM 4 MIL.UNITS in SODIUM CHLORIDE 0.9% 50 ML IV SCH ×6 (02:23→22:48)
--- NOTE | 2020-11-23 07:47 | Progress Note ---
Assessment and Plan Assessment and plan: Syphilis. Late latent versus neurosyphilis. Toxic metabolic encephalopathy. Etiology secondary to sepsis versus hyponatremia. 11/17/2020. Patient reportedly declined LP. ID started penicillin G 4,000,000 units every 4 hours or 20,000,000 units as continuous infusion daily for 14 days ending on 11/28. Midline ordered. Will discuss with case management possibility of patient receiving IV penicillin in a rehab facility versus LTAC. However, patient unfunded. 11/18/2020. Cont. penicillin G 4,000,000 units every 4 hours or 20,000,000 units as continuous infusion daily for 14 days ending on 11/28. Midline ordered. Will discuss with case management possibility of patient receiving IV penicillin in a rehab facility versus LTAC. However, patient unfunded. 11/19/2020. Continue IV penicillin G 4,000,000 units every 4 hours as continuous infusion daily for 14 days ending 11/28/2020. Midline ordered. Plan discussed with the sister. Patient is unfunded. 11/20/2020. Continue IV penicillin per ID recommendations. 11/21/2020. Continue IV penicillin per ID recommendations. Patient with unf ortunate social issues. Per case management, sister reports patient has been evicted and will need assistance in finding somewhere to live. Patient is also unfunded. 11/22/2020. Patient still remains somewhat confused. Continue IV penicillin per ID recommendations. Patient with unfortunate social issues. Per case management, sister reports patient has been evicted and will need assistance in finding somewhere to live. Patient is also unfunded. 11/23/2020. Patient appears to be back to baseline with mental status. Patient alert and oriented x3. Continue IV penicillin per ID recommendations. Patient with unfortunate social issues. Per case management, sister reports patient has been evicted and will need assistance in finding somewhere to live. Patient is also unfunded History Interval history: Pt appears to be back at baseline with mental status. No new issues overnight. Hospitalist Physical - Constitutional Vitals: Temp Pulse Resp BP Pulse Ox 98.3 F 77 18 113/79 99 11/23/20 04:51 11/23/20 04:51 11/23/20 04:51 11/23/20 04:51 11/23/20 04:51 General appearance: Present: no acute distress, well-nourished - EENT Eyes: Present: PERRL, EOM intact ENT: hearing intact, clear oral mucosa, dentition normal - Neck Neck: Present: supple, normal ROM - Respiratory Respiratory effort: normal Respiratory: bilateral: CTA - Cardiovascular Rhythm: regular Heart Sounds: Present: S1 & S2. Absent: gallop, rub - Extremities Extremities: no ischemia, No edema, Full ROM - Abdominal General gastrointestinal: soft, non-tender, non-distended, normal bowel sounds - Integumentary Integumentary: Present: clear, warm, dry - Neurologic Neurologic: CNII-XII intact, moves all extremities HEART Score - HEART Score Troponin: Troponin T < 0.010 ng/mL (0.00-0.029) 11/11/20 20:06 Results - Labs CBC & Chem 7: 11/21/20 05:29 11/21/20 05:29 Labs: Laboratory Last Values WBC 9.2 K/mm3 (4.5-11.0) 11/21/20 05:29 RBC 3.07 M/mm3 (3.65-5.03) L 11/21/20 05:29 Hgb 11.4 gm/dl (11.8-15.2) L 11/21/20 05:29 Hct 31.1 % (35.5-45.6) L 11/21/20 05:29 MCV 101 fl (84-94) H 11/21/20 05:29 MCH 37 pg (28-32) H 11/21/20 05:29 MCHC 37 % (32-34) H 11/21/20 05:29 RDW 13.8 % (13.2-15.2) 11/21/20 05:29 Plt Count 350 K/mm3 (140-440) 11/21/20 05:29 Lymph % (Auto) 10.8 % (13.4-35.0) L 11/13/20 07:18 [place] % (Auto) 10.9 % (0.0-7.3) H 11/13/20 07:18 Eos % (Auto) 1.8 % (0.0-4.3) 11/13/20 07:18 Baso % (Auto) 0.4 % (0.0-1.8) 11/13/20 07:18 Lymph # (Auto) 0.8 K/mm3 (1.2-5.4) L 11/13/20 07:18 [place] # (Auto) 0.8 K/mm3 (0.0-0.8) 11/13/20 07:18 Eos # (Auto) 0.1 K/mm3 (0.0-0.4) 11/13/20 07:18 Baso # (Auto) 0.0 K/mm3 (0.0-0.1) 11/13/20 07:18 Add Manual Diff Complete 11/21/20 05:29 Total Counted 100 11/21/20 05:29 Seg Neutrophils % 76.1 % (40.0-70.0) H 11/13/20 07:18 Seg Neuts % (Manual) 68.0 % (40.0-70.0) 11/21/20 05:29 Lymphocytes % (Manual) 14.0 % (13.4-35.0) 11/21/20 05:29 Monocytes % (Manual) 12.0 % (0.0-7.3) H 11/21/20 05:29 Eosinophils % (Manual) 1.0 % (0.0-4.3) 11/21/20 05:29 Basophils % (Manual) 4.0 % (0.0-1.8) H 11/21/20 05:29 Metamyelocytes % 1.0 % 11/21/20 05:29 Nucleated RBC % Not Reportable 11/21/20 05:29 Seg Neutrophils # 5.8 K/mm3 (1.8-7.7) 11/13/20 07:18 Seg Neutrophils # Man 6.3 K/mm3 (1.8-7.7) 11/21/20 05:29 Band Neutrophils # 0.0 K/mm3 11/21/20 05:29 Lymphocytes # (Manual) 1.3 K/mm3 (1.2-5.4) 11/21/20 05:29 Abs React Lymphs (Man) 0.0 K/mm3 11/21/20 05:29 Monocytes # (Manual) 1.1 K/mm3 (0.0-0.8) H 11/21/20 05:29 Eosinophils # (Manual) 0.1 K/mm3 (0.0-0.4) 11/21/20 05:29 Basophils # (Manual) 0.4 K/mm3 (0.0-0.1) H 11/21/20 05:29 Metamyelocytes # 0.1 K/mm3 11/21/20 05:29 Myelocytes # 0.0 K/mm3 11/21/20 05:29 Promyelocytes # 0.0 K/mm3 11/21/20 05:29 Blast Cells # 0.0 K/mm3 11/21/20 05:29 WBC Morphology Not Reportable 11/21/20 05:29 Hypersegmented Neuts Not Reportable 11/21/20 05:29 Hyposegmented Neuts Not Reportable 11/21/20 05:29 Hypogranular Neuts Not Reportable 11/21/20 05:29 Smudge Cells Not Reportable 11/21/20 05:29 Toxic Granulation Not Reportable 11/21/20 05:29 Toxic Vacuolation Not Reportable 11/21/20 05:29 Dohle Bodies Not Reportable 11/21/20 05:29 Pelger-Huet Anomaly Not Reportable 11/21/20 05:29 Damian Rods Not Reportable 11/21/20 05:29 Platelet Estimate Consistent w auto 11/21/20 05:29 Clumped Platelets Not Reportable 11/21/20 05:29 Plt Clumps, EDTA Not Reportable 11/21/20 05:29 Large Platelets Not Reportable 11/21/20 05:29 Giant Platelets Not Reportable 11/21/20 05:29 Platelet Satelliting Not Reportable 11/21/20 05:29 Plt Morphology Comment Not Reportable 11/21/20 05:29 RBC Morphology Normal 11/21/20 05:29 Dimorphic RBCs Not Reportable 11/21/20 05:29 Polychromasia Not Reportable 11/21/20 05:29 Hypochromasia Not Reportable 11/21/20 05:29 Poikilocytosis Not Reportable 11/21/20 05:29 Anisocytosis Not Reportable 11/21/20 05:29 Microcytosis Not Reportable 11/21/20 05:29 Macrocytosis Not Reportable 11/21/20 05:29 Spherocytes Not Reportable 11/21/20 05:29 Pappenheimer Bodies Not Reportable 11/21/20 05:29 Sickle Cells Not Reportable 11/21/20 05:29 Target Cells Not Reportable 11/21/20 05:29 Tear Drop Cells Not Reportable 11/21/20 05:29 Ovalocytes Not Reportable 11/21/20 05:29 Helmet Cells Not Reportable 11/21/20 05:29 Blanco-Caballo Bodies Not Reportable 11/21/20 05:29 [place] Rings Not Reportable 11/21/20 05:29 Chante Cells Not Reportable 11/21/20 05:29 Bite Cells Not Reportable 11/21/20 05:29 Crenated Cell Not Reportable 11/21/20 05:29 Elliptocytes Not Reportable 11/21/20 05:29 Acanthocytes (Spur) Not Reportable 11/21/20 05:29 Rouleaux Not Reportable 11/21/20 05:29 Hemoglobin C Crystals Not Reportable 11/21/20 05:29 Schistocytes Not Reportable 11/21/20 05:29 Malaria parasites Not Reportable 11/21/20 05:29 Peter Bodies Not Reportable 11/21/20 05:29 Hem Pathologist Commnt No 11/21/20 05:29 PT 12.7 Sec. (12.2-14.9) 11/11/20 20:06 INR 0.96 (0.87-1.13) 11/11/20 20:06 APTT 30.5 Sec. (24.2-36.6) 11/11/20 20:06 Sodium 137 mmol/L (137-145) D 11/21/20 05:29 Potassium 4.4 mmol/L (3.6-5.0) 11/21/20 05:29 Chloride 98.6 mmol/L (98-107) 11/21/20 05:29 Carbon Dioxide 26 mmol/L (22-30) 11/21/20 05:29 Anion Gap 17 mmol/L 11/21/20 05:29 BUN 17 mg/dL (9-20) 11/21/20 05:29 Creatinine 0.7 mg/dL (0.8-1.3) L 11/21/20 05:29 Estimated GFR > 60 ml/min 11/21/20 05:29 BUN/Creatinine Ratio 24 % 11/21/20 05:29 Glucose 95 mg/dL (75-100) 11/21/20 05:29 Hemoglobin A1c 4.7 % (4-6) 11/12/20 02:58 Osmolality 268 Mosm/kg 11/12/20 02:58 Lactic Acid 1.00 mmol/L (0.7-2.0) 11/11/20 20:06 Calcium 9.6 mg/dL (8.4-10.2) 11/21/20 05:29 Phosphorus 3.30 mg/dL (2.5-4.5) 11/12/20 02:58 Magnesium 1.20 mg/dL (1.7-2.3) L 11/12/20 02:58 Ferritin 272.0 ng/mL (30.0-300.0) 11/12/20 06:42 Total Bilirubin 0.30 mg/dL (0.1-1.2) 11/11/20 20:06 AST 29 units/L (5-40) 11/11/20 20:06 ALT 27 units/L (7-56) 11/11/20 20:06 Alkaline Phosphatase 85 units/L (35-129) 11/11/20 20:06 Ammonia 38.0 umol/L (25-60) 11/11/20 20:06 Total Creatine Kinase 141 units/L (55-170) 11/11/20 20:06 Troponin T < 0.010 ng/mL (0.00-0.029) 11/11/20 20:06 Total Protein 6.1 g/dL (6.3-8.2) L 11/11/20 20:06 Albumin 3.9 g/dL (3.9-5) 11/11/20 20:06 Albumin/Globulin Ratio 1.8 % 11/11/20 20:06 Vitamin B1 24 nmol/L (8-30) 11/12/20 17:54 Vitamin B12 505.1 pg/mL (211-911) 11/12/20 17:54 TSH 1.280 mlU/mL (0.270-4.200) 11/12/20 17:54 Urine Color Yellow (Yellow) 11/12/20 01:12 Urine Turbidity Clear (Clear) 11/12/20 01:12 Urine pH 5.0 (5.0-7.0) 11/12/20 01:12 Ur Specific [place] 1.012 (1.003-1.030) 11/12/20 01:12 Urine Protein <15 mg/dl mg/dL (Negative) 11/12/20 01:12 Urine Glucose (UA) Neg mg/dL (Negative) 11/12/20 01:12 Urine Ketones Neg mg/dL (Negative) 11/12/20 01:12 Urine Blood Neg (Negative) 11/12/20 01:12 Urine Nitrite Neg (Negative) 11/12/20 01:12 Urine Bilirubin Neg (Negative) 11/12/20 01:12 Urine Urobilinogen < 2.0 mg/dL (<2.0) 11/12/20 01:12 Ur Leukocyte Esterase Neg (Negative) 11/12/20 01:12 Urine WBC (Auto) 1.0 /HPF (0.0-6.0) 11/12/20 01:12 Urine RBC (Auto) 1.0 /HPF (0.0-6.0) 11/12/20 01:12 Urine Mucus Few /HPF 11/12/20 01:12 Urine Osmolality 149 Mosm/kg 11/12/20 12:19 Salicylates < 0.3 mg/dL (2.8-20.0) L 11/11/20 20:06 Urine Opiates Screen Negative 11/12/20 12:19 Urine Methadone Screen Negative 11/12/20 12:19 Acetaminophen 5.0 ug/mL (10.0-30.0) L 11/11/20 20:06 Ur Barbiturates Screen Negative 11/12/20 12:19 Ur Phencyclidine Scrn Negative 11/12/20 12:19 Ur Amphetamines Screen Negative 11/12/20 12:19 U Benzodiazepines Scrn Negative 11/12/20 12:19 Urine Cocaine Screen Negative 11/12/20 12:19 U Marijuana (THC) Screen Negative 11/12/20 12:19 Drugs of Abuse Note Disclamer 11/12/20 12:19 Plasma/Serum Alcohol < 0.01 % (0-0.07) 11/11/20 20:06 Syphilis IgG Antibody Reactive (NonReactive) A 11/12/20 17:54 RPR Titer 1:8 11/12/20 17:54 T.pallidum Ab (FTA-ABS) Reactive (Nonreactive) H 11/12/20 17:54 Coronavirus (PCR) Negative (Negative) 11/14/20 Unknown HIV 1&2 Antibody Rapid Non react (Non React) 11/12/20 17:54 HIV P24 Antigen Non react (Non React) 11/12/20 17:54 [place]/IV: Voiding Method Toilet Active Medications - Current Medications Current Medications: Generic Name Dose Route Start Last Admin Trade Name Freq PRN Reason Stop Dose Admin Acetaminophen 650 mg 11/12/20 02:41 11/17/20 01:45 Acetaminophen 325 Mg Tab PO 650 mg Q4H PRN Administration Pain MILD(1-3)/Fever >100.5/ALMENDAREZ Amlodipine Besylate 10 mg 11/12/20 10:00 11/22/20 11:03 Amlodipine 10 Mg Tab PO 10 mg QDAY GIULIA Administration Clonidine HCl 0.2 mg 11/12/20 11:00 11/19/20 11:00 Clonidine Tts 0.2 Mg/24 Hr Patch TD 0.2 mg Th GIULIA Administration Docusate Sodium 100 mg 11/12/20 10:00 11/22/20 22:48 Docusate Sodium 100 Mg Cap PO 100 mg BID GIULIA Administration Folic Acid 1 mg 11/12/20 10:00 11/22/20 11:08 Folic Acid 1 Mg Tab PO 1 mg QDAY GIULIA Administration Heparin Sodium (Porcine) 5,000 unit 11/12/20 10:00 11/22/20 22:46 Heparin 5,000 Unit/1 Ml Vial SUB-Q 5,000 unit Q12HR GIULIA Administration Penicillin G Potassium 4 mil. 50 mls @ 100 mls/hr 11/14/20 14:00 11/23/20 05:00 units/ Sodium Chloride IV 11/28/20 10:29 100 mls/hr Q4HR GIULIA Administration Lorazepam 2 mg 11/12/20 02:43 11/21/20 16:04 Lorazepam 2 Mg/Ml Vial IV 2 mg Q1H PRN Administration CIWA-Cody 8-15 Multivitamins 1 each 11/12/20 10:00 11/22/20 11:06 Multivitamins ,Therapeutic Tab PO 1 each QDAY GIULIA Administration Nicotine 14 mg 11/12/20 10:00 11/22/20 12:06 Nicotine 14 Mg/24 Hr Patch TD 14 mg QDAY GIULIA Administration Ondansetron HCl 4 mg 11/12/20 02:41 Ondansetron 4 Mg/2 Ml Inj IV Q8H PRN Nausea And Vomiting Sodium Chloride 10 ml 11/12/20 10:00 11/22/20 22:48 Sodium Chloride 0.9% 10 Ml Flush Syringe IV 10 ml BID GIULIA Administration Sodium Chloride 10 ml 11/12/20 02:41 11/12/20 05:39 Sodium Chloride 0.9% 10 Ml Flush Syringe IV 10 ml PRN PRN Administration LINE FLUSH Thiamine HCl 100 mg 11/12/20 10:00 11/22/20 11:05 Thiamine 100 Mg Tab PO 100 mg QDAY GIULIA Administration Nutrition/Malnutrition Assess - Dietary Evaluation Nutrition/Malnutrition Findings: Nutrition Notes Start: 11/12/20 09:53 Freq: Status: Active Protocol: Document 11/20/20 10:15 AT (Rec: 11/20/20 10:31 AT [id number]) Co-Sign 11/20/20 10:15 MK Nutrition Notes Need for Assessment generated from: Education Initial or Follow up Reassessment Current Diagnosis Hypertension Other Pertinent Diagnosis AMS, Neuropathy, Depression, hx EtOH abuse, Metabolic Encephalopathy Current Diet Cardiac Diet Labs/Tests 11/17 Na 130 Cr 0.6 Hgb 10.8 Pertinent Medications Reviewed Height 5 ft 10 in Weight 79.1 kg Usual Body Weight 68.18 kg [place] Body Weight (kg) 75.45 BMI 25.0 Weight Status Overweight Subjective/Other Information Follow up for stable intakes and ONS tolerance. Pt reports consuming between 80-85% of breakfast this morning. Pt has intakes of 100% x 5 days in the chart. Pt would like to remain on ONS. Pt does not typically eat 3 meals per day outside of the hospital. Pt feels positive about weight gain. Meals and ONS are providing over nutrition. Will reduce ONS to 1 daily; pt reports drinking Nutrimen at home. Evaporator Supervisor went over general healthy nutrition and heart healthy nutrition, pt refused handout due to inability to see well without reading glasses. Percent of energy/protein needs met: 100%/100% Burn Absent Trauma Absent GI Symptoms None Current % PO Good (75-100%) Minimum of two criteria No physical signs of malnutrition #2 Nutrition Diagnosis Limited adherence to nutrition -related recommendations Etiology HTN, EtOH abuse As Evidenced by Signs and Symptoms pt had questions, no previous diet education Is patient on ventilator? No Is Patient Ambulatory and/or Out of Bed Yes REE-([place]-St. Jeor-ambulatory/OOB) [ 2081.8 [id number]] Calculation Used for Recommendations ColleenJuanSt Mack Additional Notes PRO needs: 63-79g (0.8-1g/kg) Fluid needs: 1mL/kcal or per MD Nutrition Intervention Change Diet Order: Continue current Add Supplement/Snack (indicate name/kcal Ensure daily /protein ) Provides kCal: 350 Provides Protein (gm) 20 Teaching Recipient Patient Learning Readiness Good Teaching Methods Discussion Response to Teaching Verbalize understanding Barriers to Learning Visual RD phone number provided Yes Patient aware of follow up options Yes Goal #1 Meet at least 75% of EER and protein needs via diet and ONS Goal #2 Understanding the importance of adhering to a Cardiac Diet and limiting EtOH intake Anticipated Discharge Needs: Cardiac diet with ONS PRN Follow-Up By: 11/27/20 Additional Comments F/U stable intakes
[2020-11-23] MEDS: NICOTINE 14 MG/24 HR PATCH TD SCH (10:45)
[2020-11-23] MEDS: DOCUSATE SODIUM 100 MG CAP PO SCH ×2 (10:45→22:51)
[2020-11-23] MEDS: FOLIC ACID 1 MG TAB PO SCH (10:45)
[2020-11-23] MEDS: amLODIPine 10 MG TAB PO SCH (10:46)
[2020-11-23] MEDS: MULTIVITAMINS ,THERAPEUTIC TAB PO SCH (10:47)
[2020-11-23] MEDS: HEPARIN 5,000 UNIT/1 ML VIAL SUB-Q SCH ×2 (10:49→22:49)
[2020-11-23] MEDS: THIAMINE 100 MG TAB PO SCH (10:54)
[2020-11-23] MEDS: ACETAMINOPHEN 325 MG TAB PO PRN (16:01)
[2020-11-23] MEDS: LORazepam 2 MG/ML VIAL IV PRN (16:52)
[2020-11-24] MEDS: PENICILLIN G POTASSIUM 4 MIL.UNITS in SODIUM CHLORIDE 0.9% 50 ML IV SCH ×6 (01:38→21:42)
[2020-11-24 07:02] LABS: Hematocrit 31.4 % (35.5-45.6); Hemoglobin 10.7 gm/dl (11.8-15.2); Mean Corpuscular HGB Conc 34 % (32-34); Mean Corpuscular Volume 100 fl (84-94); Platelet Count 383 K/mm3 (140-440); Red Blood Count 3.13 M/mm3 (3.65-5.03); Red Cell Distribution Width 13.7 % (13.2-15.2)
[2020-11-24 08:21] LABS: BUN/Creatinine Ratio 20; Blood Urea Nitrogen 16 mg/dL (9-20); Calcium 9.5 mg/dL (8.4-10.2); Hemolysis Index 7; Total Cells Counted 100
[2020-11-24 08:22] LABS: Anisocytosis 1+; Platelet Estimate Consistent w Auto
[2020-11-24] MEDS: NICOTINE 14 MG/24 HR PATCH TD SCH (09:42)
[2020-11-24] MEDS: HEPARIN 5,000 UNIT/1 ML VIAL SUB-Q SCH ×2 (09:42→21:42)
[2020-11-24] MEDS: FOLIC ACID 1 MG TAB PO SCH (09:46)
[2020-11-24] MEDS: MULTIVITAMINS ,THERAPEUTIC TAB PO SCH (09:46)
[2020-11-24] MEDS: DOCUSATE SODIUM 100 MG CAP PO SCH ×2 (09:46→21:42)
[2020-11-24] MEDS: THIAMINE 100 MG TAB PO SCH (09:46)
[2020-11-24] MEDS: amLODIPine 10 MG TAB PO SCH (09:59)
[2020-11-24] MEDS: ACETAMINOPHEN 325 MG TAB PO PRN (15:12)
--- NOTE | 2020-11-24 18:08 | Progress Note ---
Assessment and Plan Assessment and plan: --Syphilis. Late latent versus neurosyphilis. Patient refused lumbar puncture Continue IV penicillin stop date 11/28/2020 per ID IV penicillin G 4,000,000[4 million units every 4 hours] or 20,000,000 units continuous infusion daily for 14 days stop date 11/28/2020 ID following Continue supportive care Neuro evaluated the patient --Toxic metabolic encephalopathy. Etiology secondary to sepsis versus hyponatremia. CT head negative MRI of the brain normal Blood cultures no growth to date Continue current management --Hyponatremia; present on admission sodium 125 Significantly improved Closely monitor electrolytes --h/o EtOH Abuse No symptoms or signs of withdrawal Patient was on CIWA protocol - Thiamine and Folic Acid No signs of alcohol withdrawal Tobacco abuse -Current every day smoker -Counseled for smoking cessation -Nicotine patch when necessary HTN -Monitor BP -Resume home hypertensive meds Severe protein caloric malnutrition secondary to alcohol use Dietary supplements DVT PPX: Heparin CODE STATUS: Full Disposition: Continue treatment for syphilis, continuous infusion of penicillin per ID recommendations. Outpatient ophthalmology evaluation for worsening eyesight Ophthalmology service not available ophthalmology service not available 11/17/2020. Patient reportedly declined LP. ID started penicillin G 4,000,000 units every 4 hours or 20,000,000 units as continuous infusion daily for 14 days ending on 11/28. Midline ordered. Will discuss with case management possibility of patient receiving IV penicillin in a rehab facility versus LTAC. However, patient unfunded. 11/18/2020. Cont. penicillin G 4,000,000 units every 4 hours or 20,000,000 units as continuous infusion daily for 14 days ending on 11/28. Midline ordered. Will discuss with case management possibility of patient receiving IV penicillin in a rehab facility versus LTAC. However, patient unfunded. 11/19/2020. Continue IV penicillin G 4,000,000 units every 4 hours as continuous infusion daily for 14 days ending 11/28/2020. Midline ordered. Plan discussed with the sister. Patient is unfunded. 11/20/2020. Continue IV penicillin per ID recommendations. 11/21/2020. Continue IV penicillin per ID recommendations. Patient with unfortunate social issues. Per case management, sister reports patient has been evicted and will need assistance in finding somewhere to live. Patient is also unfunded. 11/22/2020. Patient still remains somewhat confused. Continue IV penicillin per ID recommendations. Patient with unfortunate social issues. Per case management, sister reports patient has been evicted and will need assistance in finding somewhere to live. Patient is also unfunded. 11/23/2020. Patient appears to be back to baseline with mental status. Patient alert and oriented x3. Continue IV penicillin per ID recommendations. Patient with unfortunate social issues. Per case management, sister reports patient has been evicted and will need assistance in finding somewhere to live. Patient is also unfunded 11/24/2020; today's patient's birthday anxious to go home, however patient is receiving 4,000,000 units IV penicillin G every 4 hours as recommended by ID Stop date 11/28/2020. History Interval history: I have seen and examined the patient at the bedside Patient's chart and medications reviewed Patient feels slightly better Today is his birthday and wants to go home However need to complete IV penicillin G till 11/26/2020 Vital signs noted Hospitalist Physical - Constitutional Vitals: Temp Pulse Resp BP Pulse Ox 98.0 F 82 22 120/67 96 11/24/20 12:00 11/24/20 12:00 11/24/20 12:00 11/24/20 12:00 11/24/20 12:00 General appearance: Present: no acute distress, well-nourished - EENT Eyes: Present: PERRL, EOM intact - Neck Neck: Present: supple, normal ROM - Respiratory Respiratory effort: normal Respiratory: bilateral: diminished, negative: rales, rhonchi, wheezing - Cardiovascular Rhythm: regular Heart Sounds: Present: S1 & S2 - Extremities Extremities: no ischemia, No edema - Abdominal General gastrointestinal: soft, non-tender, non-distended, normal bowel sounds - Integumentary Integumentary: Present: clear, warm - Psychiatric Psychiatric: appropriate mood/affect, cooperative - Neurologic Neurologic: CNII-XII intact, moves all extremities HEART Score - HEART Score Troponin: Troponin T < 0.010 ng/mL (0.00-0.029) 11/11/20 20:06 Results - Labs CBC & Chem 7: 11/24/20 06:00 11/24/20 06:00 Labs: Laboratory Last Values WBC 7.9 K/mm3 (4.5-11.0) 11/24/20 06:00 RBC 3.13 M/mm3 (3.65-5.03) L 11/24/20 06:00 Hgb 10.7 gm/dl (11.8-15.2) L 11/24/20 06:00 Hct 31.4 % (35.5-45.6) L 11/24/20 06:00 MCV 100 fl (84-94) H 11/24/20 06:00 MCH 34 pg (28-32) H 11/24/20 06:00 MCHC 34 % (32-34) 11/24/20 06:00 RDW 13.7 % (13.2-15.2) 11/24/20 06:00 Plt Count 383 K/mm3 (140-440) 11/24/20 06:00 Lymph % (Auto) 10.8 % (13.4-35.0) L 11/13/20 07:18 [place] % (Auto) 10.9 % (0.0-7.3) H 11/13/20 07:18 Eos % (Auto) 1.8 % (0.0-4.3) 11/13/20 07:18 Baso % (Auto) 0.4 % (0.0-1.8) 11/13/20 07:18 Lymph # (Auto) 0.8 K/mm3 (1.2-5.4) L 11/13/20 07:18 [place] # (Auto) 0.8 K/mm3 (0.0-0.8) 11/13/20 07:18 Eos # (Auto) 0.1 K/mm3 (0.0-0.4) 11/13/20 07:18 Baso # (Auto) 0.0 K/mm3 (0.0-0.1) 11/13/20 07:18 Add Manual Diff Complete 11/24/20 06:00 Total Counted 100 11/24/20 06:00 Seg Neutrophils % 76.1 % (40.0-70.0) H 11/13/20 07:18 Seg Neuts % (Manual) 61.0 % (40.0-70.0) 11/24/20 06:00 Lymphocytes % (Manual) 20.0 % (13.4-35.0) 11/24/20 06:00 Monocytes % (Manual) 14.0 % (0.0-7.3) H 11/24/20 06:00 Eosinophils % (Manual) 4.0 % (0.0-4.3) 11/24/20 06:00 Basophils % (Manual) 4.0 % (0.0-1.8) H 11/21/20 05:29 Metamyelocytes % 1.0 % 11/24/20 06:00 Nucleated RBC % Not Reportable 11/24/20 06:00 Seg Neutrophils # 5.8 K/mm3 (1.8-7.7) 11/13/20 07:18 Seg Neutrophils # Man 4.8 K/mm3 (1.8-7.7) 11/24/20 06:00 Band Neutrophils # 0.0 K/mm3 11/24/20 06:00 Lymphocytes # (Manual) 1.6 K/mm3 (1.2-5.4) 11/24/20 06:00 Abs React Lymphs (Man) 0.0 K/mm3 11/24/20 06:00 Monocytes # (Manual) 1.1 K/mm3 (0.0-0.8) H 11/24/20 06:00 Eosinophils # (Manual) 0.3 K/mm3 (0.0-0.4) 11/24/20 06:00 Basophils # (Manual) 0.0 K/mm3 (0.0-0.1) 11/24/20 06:00 Metamyelocytes # 0.1 K/mm3 11/24/20 06:00 Myelocytes # 0.0 K/mm3 11/24/20 06:00 Promyelocytes # 0.0 K/mm3 11/24/20 06:00 Blast Cells # 0.0 K/mm3 11/24/20 06:00 WBC Morphology Not Reportable 11/24/20 06:00 Hypersegmented Neuts Not Reportable 11/24/20 06:00 Hyposegmented Neuts Not Reportable 11/24/20 06:00 Hypogranular Neuts Not Reportable 11/24/20 06:00 Smudge Cells Not Reportable 11/24/20 06:00 Toxic Granulation Not Reportable 11/24/20 06:00 Toxic Vacuolation Not Reportable 11/24/20 06:00 Dohle Bodies Not Reportable 11/24/20 06:00 Pelger-Huet Anomaly Not Reportable 11/24/20 06:00 Damian Rods Not Reportable 11/24/20 06:00 Platelet Estimate Consistent w auto 11/24/20 06:00 Clumped Platelets Not Reportable 11/24/20 06:00 Plt Clumps, EDTA Not Reportable 11/24/20 06:00 Large Platelets Not Reportable 11/24/20 06:00 Giant Platelets Not Reportable 11/24/20 06:00 Platelet Satelliting Not Reportable 11/24/20 06:00 Plt Morphology Comment Not Reportable 11/24/20 06:00 RBC Morphology Not Reportable 11/24/20 06:00 Dimorphic RBCs Not Reportable 11/24/20 06:00 Polychromasia Not Reportable 11/24/20 06:00 Hypochromasia Not Reportable 11/24/20 06:00 Poikilocytosis Not Reportable 11/24/20 06:00 Anisocytosis 1+ 11/24/20 06:00 Microcytosis Not Reportable 11/24/20 06:00 Macrocytosis Not Reportable 11/24/20 06:00 Spherocytes Not Reportable 11/24/20 06:00 Pappenheimer Bodies Not Reportable 11/24/20 06:00 Sickle Cells Not Reportable 11/24/20 06:00 Target Cells Not Reportable 11/24/20 06:00 Tear Drop Cells Not Reportable 11/24/20 06:00 Ovalocytes Not Reportable 11/24/20 06:00 Helmet Cells Not Reportable 11/24/20 06:00 Blanco-Smock Bodies Not Reportable 11/24/20 06:00 [place] Rings Not Reportable 11/24/20 06:00 Chante Cells Not Reportable 11/24/20 06:00 Bite Cells Not Reportable 11/24/20 06:00 Crenated Cell Not Reportable 11/24/20 06:00 Elliptocytes Not Reportable 11/24/20 06:00 Acanthocytes (Spur) Not Reportable 11/24/20 06:00 Rouleaux Not Reportable 11/24/20 06:00 Hemoglobin C Crystals Not Reportable 11/24/20 06:00 Schistocytes Not Reportable 11/24/20 06:00 Malaria parasites Not Reportable 11/24/20 06:00 Peter Bodies Not Reportable 11/24/20 06:00 Hem Pathologist Commnt No 11/24/20 06:00 PT 12.7 Sec. (12.2-14.9) 11/11/20 20:06 INR 0.96 (0.87-1.13) 11/11/20 20:06 APTT 30.5 Sec. (24.2-36.6) 11/11/20 20:06 Sodium 134 mmol/L (137-145) L 11/24/20 06:00 Potassium 4.1 mmol/L (3.6-5.0) 11/24/20 06:00 Chloride 97.6 mmol/L (98-107) L 11/24/20 06:00 Carbon Dioxide 27 mmol/L (22-30) 11/24/20 06:00 Anion Gap 14 mmol/L 11/24/20 06:00 BUN 16 mg/dL (9-20) 11/24/20 06:00 Creatinine 0.8 mg/dL (0.8-1.3) 11/24/20 06:00 Estimated GFR > 60 ml/min 11/24/20 06:00 BUN/Creatinine Ratio 20 % 11/24/20 06:00 Glucose 81 mg/dL (75-100) 11/24/20 06:00 Hemoglobin A1c 4.7 % (4-6) 11/12/20 02:58 Osmolality 268 Mosm/kg 11/12/20 02:58 Lactic Acid 1.00 mmol/L (0.7-2.0) 11/11/20 20:06 Calcium 9.5 mg/dL (8.4-10.2) 11/24/20 06:00 Phosphorus 3.30 mg/dL (2.5-4.5) 11/12/20 02:58 Magnesium 1.20 mg/dL (1.7-2.3) L 11/12/20 02:58 Ferritin 272.0 ng/mL (30.0-300.0) 11/12/20 06:42 Total Bilirubin 0.30 mg/dL (0.1-1.2) 11/11/20 20:06 AST 29 units/L (5-40) 11/11/20 20:06 ALT 27 units/L (7-56) 11/11/20 20:06 Alkaline Phosphatase 85 units/L (35-129) 11/11/20 20:06 Ammonia 38.0 umol/L (25-60) 11/11/20 20:06 Total Creatine Kinase 141 units/L (55-170) 11/11/20 20:06 Troponin T < 0.010 ng/mL (0.00-0.029) 11/11/20 20:06 Total Protein 6.1 g/dL (6.3-8.2) L 11/11/20 20:06 Albumin 3.9 g/dL (3.9-5) 11/11/20 20:06 Albumin/Globulin Ratio 1.8 % 11/11/20 20:06 Vitamin B1 24 nmol/L (8-30) 11/12/20 17:54 Vitamin B12 505.1 pg/mL (211-911) 11/12/20 17:54 TSH 1.280 mlU/mL (0.270-4.200) 11/12/20 17:54 Urine Color Yellow (Yellow) 11/12/20 01:12 Urine Turbidity Clear (Clear) 11/12/20 01:12 Urine pH 5.0 (5.0-7.0) 11/12/20 01:12 Ur Specific [place] 1.012 (1.003-1.030) 11/12/20 01:12 Urine Protein <15 mg/dl mg/dL (Negative) 11/12/20 01:12 Urine Glucose (UA) Neg mg/dL (Negative) 11/12/20 01:12 Urine Ketones Neg mg/dL (Negative) 11/12/20 01:12 Urine Blood Neg (Negative) 11/12/20 01:12 Urine Nitrite Neg (Negative) 11/12/20 01:12 Urine Bilirubin Neg (Negative) 11/12/20 01:12 Urine Urobilinogen < 2.0 mg/dL (<2.0) 11/12/20 01:12 Ur Leukocyte Esterase Neg (Negative) 11/12/20 01:12 Urine WBC (Auto) 1.0 /HPF (0.0-6.0) 11/12/20 01:12 Urine RBC (Auto) 1.0 /HPF (0.0-6.0) 11/12/20 01:12 Urine Mucus Few /HPF 11/12/20 01:12 Urine Osmolality 149 Mosm/kg 11/12/20 12:19 Salicylates < 0.3 mg/dL (2.8-20.0) L 11/11/20 20:06 Urine Opiates Screen Negative 11/12/20 12:19 Urine Methadone Screen Negative 11/12/20 12:19 Acetaminophen 5.0 ug/mL (10.0-30.0) L 11/11/20 20:06 Ur Barbiturates Screen Negative 11/12/20 12:19 Ur Phencyclidine Scrn Negative 11/12/20 12:19 Ur Amphetamines Screen Negative 11/12/20 12:19 U Benzodiazepines Scrn Negative 11/12/20 12:19 Urine Cocaine Screen Negative 11/12/20 12:19 U Marijuana (THC) Screen Negative 11/12/20 12:19 Drugs of Abuse Note Disclamer 11/12/20 12:19 Plasma/Serum Alcohol < 0.01 % (0-0.07) 11/11/20 20:06 Syphilis IgG Antibody Reactive (NonReactive) A 11/12/20 17:54 RPR Titer 1:8 11/12/20 17:54 T.pallidum Ab (FTA-ABS) Reactive (Nonreactive) H 11/12/20 17:54 Coronavirus (PCR) Negative (Negative) 11/14/20 Unknown HIV 1&2 Antibody Rapid Non react (Non React) 11/12/20 17:54 HIV P24 Antigen Non react (Non React) 11/12/20 17:54 [place]/IV: Voiding Method Toilet Active Medications - Current Medications Current Medications: Generic Name Dose Route Start Last Admin Trade Name Freq PRN Reason Stop Dose Admin Acetaminophen 650 mg 11/12/20 02:41 11/24/20 15:12 Acetaminophen 325 Mg Tab PO 650 mg Q4H PRN Administration Pain MILD(1-3)/Fever >100.5/ALMENDAREZ Amlodipine Besylate 10 mg 11/12/20 10:00 11/24/20 09:59 Amlodipine 10 Mg Tab PO 10 mg QDAY GIULIA Administration Clonidine HCl 0.2 mg 11/12/20 11:00 11/19/20 11:00 Clonidine Tts 0.2 Mg/24 Hr Patch TD 0.2 mg Th GIULIA Administration Docusate Sodium 100 mg 11/12/20 10:00 11/24/20 09:46 Docusate Sodium 100 Mg Cap PO 100 mg BID GIULIA Administration Folic Acid 1 mg 11/12/20 10:00 11/24/20 09:46 Folic Acid 1 Mg Tab PO 1 mg QDAY GIULIA Administration Heparin Sodium (Porcine) 5,000 unit 11/12/20 10:00 11/24/20 09:42 Heparin 5,000 Unit/1 Ml Vial SUB-Q 5,000 unit Q12HR GIULIA Administration Penicillin G Potassium 4 mil. 50 mls @ 100 mls/hr 11/14/20 14:00 11/24/20 13:59 units/ Sodium Chloride IV 11/28/20 10:29 100 mls/hr Q4HR GIULIA Administration Lorazepam 2 mg 11/12/20 02:43 11/23/20 16:52 Lorazepam 2 Mg/Ml Vial IV 2 mg Q1H PRN Administration Amairani 8-15 Multivitamins 1 each 11/12/20 10:00 11/24/20 09:46 Multivitamins ,Therapeutic Tab PO 1 each QDAY GIULIA Administration Nicotine 14 mg 11/12/20 10:00 11/24/20 09:42 Nicotine 14 Mg/24 Hr Patch TD 14 mg QDAY GIULIA Administration Ondansetron HCl 4 mg 11/12/20 02:41 Ondansetron 4 Mg/2 Ml Inj IV Q8H PRN Nausea And Vomiting Sodium Chloride 10 ml 11/12/20 10:00 11/24/20 09:46 Sodium Chloride 0.9% 10 Ml Flush Syringe IV 10 ml BID GIULIA Administration Sodium Chloride 10 ml 11/12/20 02:41 11/12/20 05:39 Sodium Chloride 0.9% 10 Ml Flush Syringe IV 10 ml PRN PRN Administration LINE FLUSH Thiamine HCl 100 mg 11/12/20 10:00 11/24/20 09:46 Thiamine 100 Mg Tab PO 100 mg QDAY GIULIA Administration Nutrition/Malnutrition Assess - Dietary Evaluation Nutrition/Malnutrition Findings: Nutrition Notes Start: 11/12/20 09:53 Freq: Status: Active Protocol: Document 11/20/20 10:15 AT (Rec: 11/20/20 10:31 AT [id number]) Co-Sign 11/20/20 10:15 MK Nutrition Notes Need for Assessment generated from: Education Initial or Follow up Reassessment Current Diagnosis Hypertension Other Pertinent Diagnosis AMS, Neuropathy, Depression, hx EtOH abuse, Metabolic Encephalopathy Current Diet Cardiac Diet Labs/Tests 11/17 Na 130 Cr 0.6 Hgb 10.8 Pertinent Medications Reviewed Height 5 ft 10 in Weight 79.1 kg Usual Body Weight 68.18 kg [place] Body Weight (kg) 75.45 BMI 25.0 Weight Status Overweight Subjective/Other Information Follow up for stable intakes and ONS tolerance. Pt reports consuming between 80-85% of breakfast this morning. Pt has intakes of 100% x 5 days in the chart. Pt would like to remain on ONS. Pt does not typically eat 3 meals per day outside of the hospital. Pt feels positive about weight gain. Meals and ONS are providing over nutrition. Will reduce ONS to 1 daily; pt reports drinking Nutrimen at home. Regional Director went over general healthy nutrition and heart healthy nutrition, pt refused handout due to inability to see well without reading glasses. Percent of energy/protein needs met: 100%/100% Burn Absent Trauma Absent GI Symptoms None Current % PO Good (75-100%) Minimum of two criteria No physical signs of malnutrition #2 Nutrition Diagnosis Limited adherence to nutrition -related recommendations Etiology HTN, EtOH abuse As Evidenced by Signs and Symptoms pt had questions, no previous diet education Is patient on ventilator? No Is Patient Ambulatory and/or Out of Bed Yes REE-([place]-ambulatory/OOB) [ [id number] [id number]] Calculation Used for Recommendations [facility] Additional Notes PRO needs: 63-79g (0.8-1g/kg) Fluid needs: 1mL/kcal or per MD Nutrition Intervention Change Diet Order: Continue current Add Supplement/Snack (indicate name/kcal Ensure daily /protein ) Provides kCal: 350 Provides Protein (gm) 20 Teaching Recipient Patient Learning Readiness Good Teaching Methods Discussion Response to Teaching Verbalize understanding Barriers to Learning Visual RD phone number provided Yes Patient aware of follow up options Yes Goal #1 Meet at least 75% of EER and protein needs via diet and ONS Goal #2 Understanding the importance of adhering to a Cardiac Diet and limiting EtOH intake Anticipated Discharge Needs: Cardiac diet with ONS PRN Follow-Up By: 11/27/20 Additional Comments F/U stable intakes
[2020-11-24] MEDS: LORazepam 2 MG/ML VIAL IV PRN (18:25)
[2020-11-25] MEDS: PENICILLIN G POTASSIUM 4 MIL.UNITS in SODIUM CHLORIDE 0.9% 50 ML IV SCH ×13 (02:07→22:43)
[2020-11-25] MEDS: FOLIC ACID 1 MG TAB PO SCH (10:07)
[2020-11-25] MEDS: MULTIVITAMINS ,THERAPEUTIC TAB PO SCH (10:07)
[2020-11-25] MEDS: amLODIPine 10 MG TAB PO SCH (10:08)
[2020-11-25] MEDS: NICOTINE 14 MG/24 HR PATCH TD SCH (10:08)
[2020-11-25] MEDS: HEPARIN 5,000 UNIT/1 ML VIAL SUB-Q SCH ×2 (10:08→21:19)
[2020-11-25] MEDS: DOCUSATE SODIUM 100 MG CAP PO SCH ×2 (10:08→21:20)
[2020-11-25] MEDS: THIAMINE 100 MG TAB PO SCH (10:10)
--- NOTE | 2020-11-25 10:52 | Progress Note ---
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 Patient refused lumbar puncture Continue IV penicillin stop date 11/28/2020 per ID IV penicillin G 4,000,000[4 million units every 4 hours] or 20,000,000 units continuous infusion daily for 14 days stop date 11/28/2020 ID following Continue supportive care Neuro evaluated the patient --Hyponatremia; present on admission sodium 125 Significantly improved Closely monitor electrolytes --h/o EtOH Abuse No symptoms or signs of withdrawal Patient was on CIWA protocol - Thiamine and Folic Acid No signs of alcohol withdrawal Tobacco abuse -Current every day smoker -Counseled for smoking cessation -Nicotine patch when necessary HTN -Monitor BP -Resume home hypertensive meds Severe protein caloric malnutrition secondary to alcohol use Dietary supplements DVT PPX: Heparin CODE STATUS: Full Disposition: Continue treatment for syphilis, IV infusion of penicillin per ID recommendations. Outpatient ophthalmology evaluation for worsening eyesight Ophthalmology service not available ophthalmology service not available 11/17/2020. Patient reportedly declined LP. ID started penicillin G 4,000,000 units every 4 hours or 20,000,000 units as continuous infusion daily for 14 days ending on 11/28. Midline ordered. Will discuss with case management possibility of patient receiving IV penicillin in a rehab facility versus LTAC. However, patient unfunded. 11/18/2020. Cont. penicillin G 4,000,000 units every 4 hours or 20,000,000 units as continuous infusion daily for 14 days ending on 11/28. Midline ordered. Will discuss with case management possibility of patient receiving IV penicillin in a rehab facility versus LTAC. However, patient unfunded. 11/19/2020. Continue IV penicillin G 4,000,000 units every 4 hours as continuous infusion daily for 14 days ending 11/28/2020. Midline ordered. Plan discussed with the sister. Patient is unfunded. 11/20/2020. Continue IV penicillin per ID recommendations. 11/21/2020. Continue IV penicillin per ID recommendations. Patient with unfortunate social issues. Per case management, sister reports patient has been evicted and will need assistance in finding somewhere to live. Patient is also unfunded. 11/22/2020. Patient still remains somewhat confused. Continue IV penicillin per ID recommendations. Patient with unfortunate social issues. Per case management, sister reports patient has been evicted and will need assistance in finding somewhere to live. Patient is also unfunded. 11/23/2020. Patient appears to be back to baseline with mental status. Patient alert and oriented x3. Continue IV penicillin per ID recommendations. Patient with unfortunate social issues. Per case management, sister reports patient has been evicted and will need assistance in finding somewhere to live. Patient is also unfunded 11/24/2020; today's patient's birthday anxious to go home, however patient is receiving 4,000,000 units IV penicillin G every 4 hours as recommended by ID Stop date 11/28/2020. 11/25/2020; patient feels better no new complaints, all dressed up ready to go home, I explained to the patient he has 3 more days of antibiotics DC planning per case management, I called patient's next of kin Ms. Kerry Pacheco at [phone] and updated patient's condition, treatment and discharge plan. Answered all her questions History Interval history: I have seen and examined the patient at the bedside, patient's chart and medications reviewed Patient feels slightly better no new complaints However anxious to go home, confused at times Vital signs noted Hospitalist Physical - Constitutional Vitals: Temp Pulse Resp BP Pulse Ox 98.2 F 78 18 129/81 100 11/25/20 06:12 11/25/20 06:12 11/25/20 06:12 11/25/20 06:12 11/25/20 06:12 General appearance: Present: no acute distress, well-nourished, other (Confused at times) - EENT Eyes: Present: PERRL, EOM intact - Neck Neck: Present: supple, normal ROM - Respiratory Respiratory effort: normal Respiratory: bilateral: diminished, negative: rales, rhonchi, wheezing - Cardiovascular Rhythm: regular Heart Sounds: Present: S1 & S2 - Extremities Extremities: no ischemia, No edema - Abdominal General gastrointestinal: soft, non-tender, non-distended, normal bowel sounds - Integumentary Integumentary: Present: clear, warm - Psychiatric Psychiatric: appropriate mood/affect, cooperative - Neurologic Neurologic: CNII-XII intact, moves all extremities HEART Score - HEART Score Troponin: Troponin T < 0.010 ng/mL (0.00-0.029) 11/11/20 20:06 Results - Labs CBC & Chem 7: 11/24/20 06:00 11/24/20 06:00 Labs: Laboratory Last Values WBC 7.9 K/mm3 (4.5-11.0) 11/24/20 06:00 RBC 3.13 M/mm3 (3.65-5.03) L 11/24/20 06:00 Hgb 10.7 gm/dl (11.8-15.2) L 11/24/20 06:00 Hct 31.4 % (35.5-45.6) L 11/24/20 06:00 MCV 100 fl (84-94) H 11/24/20 06:00 MCH 34 pg (28-32) H 11/24/20 06:00 MCHC 34 % (32-34) 11/24/20 06:00 RDW 13.7 % (13.2-15.2) 11/24/20 06:00 Plt Count 383 K/mm3 (140-440) 11/24/20 06:00 Lymph % (Auto) 10.8 % (13.4-35.0) L 11/13/20 07:18 [place] % (Auto) 10.9 % (0.0-7.3) H 11/13/20 07:18 Eos % (Auto) 1.8 % (0.0-4.3) 11/13/20 07:18 Baso % (Auto) 0.4 % (0.0-1.8) 11/13/20 07:18 Lymph # (Auto) 0.8 K/mm3 (1.2-5.4) L 11/13/20 07:18 [place] # (Auto) 0.8 K/mm3 (0.0-0.8) 11/13/20 07:18 Eos # (Auto) 0.1 K/mm3 (0.0-0.4) 11/13/20 07:18 Baso # (Auto) 0.0 K/mm3 (0.0-0.1) 11/13/20 07:18 Add Manual Diff Complete 11/24/20 06:00 Total Counted 100 11/24/20 06:00 Seg Neutrophils % 76.1 % (40.0-70.0) H 11/13/20 07:18 Seg Neuts % (Manual) 61.0 % (40.0-70.0) 11/24/20 06:00 Lymphocytes % (Manual) 20.0 % (13.4-35.0) 11/24/20 06:00 Monocytes % (Manual) 14.0 % (0.0-7.3) H 11/24/20 06:00 Eosinophils % (Manual) 4.0 % (0.0-4.3) 11/24/20 06:00 Basophils % (Manual) 4.0 % (0.0-1.8) H 11/21/20 05:29 Metamyelocytes % 1.0 % 11/24/20 06:00 Nucleated RBC % Not Reportable 11/24/20 06:00 Seg Neutrophils # 5.8 K/mm3 (1.8-7.7) 11/13/20 07:18 Seg Neutrophils # Man 4.8 K/mm3 (1.8-7.7) 11/24/20 06:00 Band Neutrophils # 0.0 K/mm3 11/24/20 06:00 Lymphocytes # (Manual) 1.6 K/mm3 (1.2-5.4) 11/24/20 06:00 Abs React Lymphs (Man) 0.0 K/mm3 11/24/20 06:00 Monocytes # (Manual) 1.1 K/mm3 (0.0-0.8) H 11/24/20 06:00 Eosinophils # (Manual) 0.3 K/mm3 (0.0-0.4) 11/24/20 06:00 Basophils # (Manual) 0.0 K/mm3 (0.0-0.1) 11/24/20 06:00 Metamyelocytes # 0.1 K/mm3 11/24/20 06:00 Myelocytes # 0.0 K/mm3 11/24/20 06:00 Promyelocytes # 0.0 K/mm3 11/24/20 06:00 Blast Cells # 0.0 K/mm3 11/24/20 06:00 WBC Morphology Not Reportable 11/24/20 06:00 Hypersegmented Neuts Not Reportable 11/24/20 06:00 Hyposegmented Neuts Not Reportable 11/24/20 06:00 Hypogranular Neuts Not Reportable 11/24/20 06:00 Smudge Cells Not Reportable 11/24/20 06:00 Toxic Granulation Not Reportable 11/24/20 06:00 Toxic Vacuolation Not Reportable 11/24/20 06:00 Dohle Bodies Not Reportable 11/24/20 06:00 Pelger-Huet Anomaly Not Reportable 11/24/20 06:00 Damian Rods Not Reportable 11/24/20 06:00 Platelet Estimate Consistent w auto 11/24/20 06:00 Clumped Platelets Not Reportable 11/24/20 06:00 Plt Clumps, EDTA Not Reportable 11/24/20 06:00 Large Platelets Not Reportable 11/24/20 06:00 Giant Platelets Not Reportable 11/24/20 06:00 Platelet Satelliting Not Reportable 11/24/20 06:00 Plt Morphology Comment Not Reportable 11/24/20 06:00 RBC Morphology Not Reportable 11/24/20 06:00 Dimorphic RBCs Not Reportable 11/24/20 06:00 Polychromasia Not Reportable 11/24/20 06:00 Hypochromasia Not Reportable 11/24/20 06:00 Poikilocytosis Not Reportable 11/24/20 06:00 Anisocytosis 1+ 11/24/20 06:00 Microcytosis Not Reportable 11/24/20 06:00 Macrocytosis Not Reportable 11/24/20 06:00 Spherocytes Not Reportable 11/24/20 06:00 Pappenheimer Bodies Not Reportable 11/24/20 06:00 Sickle Cells Not Reportable 11/24/20 06:00 Target Cells Not Reportable 11/24/20 06:00 Tear Drop Cells Not Reportable 11/24/20 06:00 Ovalocytes Not Reportable 11/24/20 06:00 Helmet Cells Not Reportable 11/24/20 06:00 [place] Bodies Not Reportable 11/24/20 06:00 [place] Rings Not Reportable 11/24/20 06:00 [place] Cells Not Reportable 11/24/20 06:00 Bite Cells Not Reportable 11/24/20 06:00 Crenated Cell Not Reportable 11/24/20 06:00 Elliptocytes Not Reportable 11/24/20 06:00 Acanthocytes (Spur) Not Reportable 11/24/20 06:00 Rouleaux Not Reportable 11/24/20 06:00 Hemoglobin C Crystals Not Reportable 11/24/20 06:00 Schistocytes Not Reportable 11/24/20 06:00 Malaria parasites Not Reportable 11/24/20 06:00 Peter Bodies Not Reportable 11/24/20 06:00 Hem Pathologist Commnt No 11/24/20 06:00 PT 12.7 Sec. (12.2-14.9) 11/11/20 20:06 INR 0.96 (0.87-1.13) 11/11/20 20:06 APTT 30.5 Sec. (24.2-36.6) 11/11/20 20:06 Sodium 134 mmol/L (137-145) L 11/24/20 06:00 Potassium 4.1 mmol/L (3.6-5.0) 11/24/20 06:00 Chloride 97.6 mmol/L (98-107) L 11/24/20 06:00 Carbon Dioxide 27 mmol/L (22-30) 11/24/20 06:00 Anion Gap 14 mmol/L 11/24/20 06:00 BUN 16 mg/dL (9-20) 11/24/20 06:00 Creatinine 0.8 mg/dL (0.8-1.3) 11/24/20 06:00 Estimated GFR > 60 ml/min 11/24/20 06:00 BUN/Creatinine Ratio 20 % 11/24/20 06:00 Glucose 81 mg/dL (75-100) 11/24/20 06:00 Hemoglobin A1c 4.7 % (4-6) 11/12/20 02:58 Osmolality 268 Mosm/kg 11/12/20 02:58 Lactic Acid 1.00 mmol/L (0.7-2.0) 11/11/20 20:06 Calcium 9.5 mg/dL (8.4-10.2) 11/24/20 06:00 Phosphorus 3.30 mg/dL (2.5-4.5) 11/12/20 02:58 Magnesium 1.20 mg/dL (1.7-2.3) L 11/12/20 02:58 Ferritin 272.0 ng/mL (30.0-300.0) 11/12/20 06:42 Total Bilirubin 0.30 mg/dL (0.1-1.2) 11/11/20 20:06 AST 29 units/L (5-40) 11/11/20 20:06 ALT 27 units/L (7-56) 11/11/20 20:06 Alkaline Phosphatase 85 units/L (35-129) 11/11/20 20:06 Ammonia 38.0 umol/L (25-60) 11/11/20 20:06 Total Creatine Kinase 141 units/L (55-170) 11/11/20 20:06 Troponin T < 0.010 ng/mL (0.00-0.029) 11/11/20 20:06 Total Protein 6.1 g/dL (6.3-8.2) L 11/11/20 20:06 Albumin 3.9 g/dL (3.9-5) 11/11/20 20:06 Albumin/Globulin Ratio 1.8 % 11/11/20 20:06 Vitamin B1 24 nmol/L (8-30) 11/12/20 17:54 Vitamin B12 505.1 pg/mL (211-911) 11/12/20 17:54 TSH 1.280 mlU/mL (0.270-4.200) 11/12/20 17:54 Urine Color Yellow (Yellow) 11/12/20 01:12 Urine Turbidity Clear (Clear) 11/12/20 01:12 Urine pH 5.0 (5.0-7.0) 11/12/20 01:12 Ur Specific [place] 1.012 (1.003-1.030) 11/12/20 01:12 Urine Protein <15 mg/dl mg/dL (Negative) 11/12/20 01:12 Urine Glucose (UA) Neg mg/dL (Negative) 11/12/20 01:12 Urine Ketones Neg mg/dL (Negative) 11/12/20 01:12 Urine Blood Neg (Negative) 11/12/20 01:12 Urine Nitrite Neg (Negative) 11/12/20 01:12 Urine Bilirubin Neg (Negative) 11/12/20 01:12 Urine Urobilinogen < 2.0 mg/dL (<2.0) 11/12/20 01:12 Ur Leukocyte Esterase Neg (Negative) 11/12/20 01:12 Urine WBC (Auto) 1.0 /HPF (0.0-6.0) 11/12/20 01:12 Urine RBC (Auto) 1.0 /HPF (0.0-6.0) 11/12/20 01:12 Urine Mucus Few /HPF 11/12/20 01:12 Urine Osmolality 149 Mosm/kg 11/12/20 12:19 Salicylates < 0.3 mg/dL (2.8-20.0) L 11/11/20 20:06 Urine Opiates Screen Negative 11/12/20 12:19 Urine Methadone Screen Negative 11/12/20 12:19 Acetaminophen 5.0 ug/mL (10.0-30.0) L 11/11/20 20:06 Ur Barbiturates Screen Negative 11/12/20 12:19 Ur Phencyclidine Scrn Negative 11/12/20 12:19 Ur Amphetamines Screen Negative 11/12/20 12:19 U Benzodiazepines Scrn Negative 11/12/20 12:19 Urine Cocaine Screen Negative 11/12/20 12:19 U Marijuana (THC) Screen Negative 11/12/20 12:19 Drugs of Abuse Note Disclamer 11/12/20 12:19 Plasma/Serum Alcohol < 0.01 % (0-0.07) 11/11/20 20:06 Syphilis IgG Antibody Reactive (NonReactive) A 11/12/20 17:54 RPR Titer 1:8 11/12/20 17:54 T.pallidum Ab (FTA-ABS) Reactive (Nonreactive) H 11/12/20 17:54 Coronavirus (PCR) Negative (Negative) 11/14/20 Unknown HIV 1&2 Antibody Rapid Non react (Non React) 11/12/20 17:54 HIV P24 Antigen Non react (Non React) 11/12/20 17:54 [place]/IV: Voiding Method Toilet Active Medications - Current Medications Current Medications: Generic Name Dose Route Start Last Admin Trade Name Freq PRN Reason Stop Dose Admin Acetaminophen 650 mg 11/12/20 02:41 11/24/20 15:12 Acetaminophen 325 Mg Tab PO 650 mg Q4H PRN Administration Pain MILD(1-3)/Fever >100.5/ALMENDAREZ Amlodipine Besylate 10 mg 11/12/20 10:00 11/25/20 10:08 Amlodipine 10 Mg Tab PO 10 mg QDAY GIULIA Administration Clonidine HCl 0.2 mg 11/12/20 11:00 11/19/20 11:00 Clonidine Tts 0.2 Mg/24 Hr Patch TD 0.2 mg Th GIULIA Administration Docusate Sodium 100 mg 11/12/20 10:00 11/25/20 10:08 Docusate Sodium 100 Mg Cap PO 100 mg BID GIULIA Administration Folic Acid 1 mg 11/12/20 10:00 11/25/20 10:07 Folic Acid 1 Mg Tab PO 1 mg QDAY GIULIA Administration Heparin Sodium (Porcine) 5,000 unit 11/12/20 10:00 11/25/20 10:08 Heparin 5,000 Unit/1 Ml Vial SUB-Q 5,000 unit Q12HR GIULIA Administration Penicillin G Potassium 4 mil. 50 mls @ 100 mls/hr 11/14/20 14:00 11/25/20 10:06 units/ Sodium Chloride IV 11/28/20 10:29 100 mls/hr Q4HR GIULIA Administration Lorazepam 2 mg 11/12/20 02:43 11/24/20 18:25 Lorazepam 2 Mg/Ml Vial IV 2 mg Q1H PRN Administration SANTOAR-Cody 8-15 Multivitamins 1 each 11/12/20 10:00 11/25/20 10:07 Multivitamins ,Therapeutic Tab PO 1 each QDAY GIULIA Administration Nicotine 14 mg 11/12/20 10:00 11/25/20 10:08 Nicotine 14 Mg/24 Hr Patch TD 14 mg QDAY GIULIA Administration Ondansetron HCl 4 mg 11/12/20 02:41 Ondansetron 4 Mg/2 Ml Inj IV Q8H PRN Nausea And Vomiting Sodium Chloride 10 ml 11/12/20 10:00 11/25/20 10:09 Sodium Chloride 0.9% 10 Ml Flush Syringe IV 10 ml BID GIULIA Administration Sodium Chloride 10 ml 11/12/20 02:41 11/12/20 05:39 Sodium Chloride 0.9% 10 Ml Flush Syringe IV 10 ml PRN PRN Administration LINE FLUSH Thiamine HCl 100 mg 11/12/20 10:00 11/25/20 10:10 Thiamine 100 Mg Tab PO 100 mg QDAY GIULIA Administration Nutrition/Malnutrition Assess - Dietary Evaluation Nutrition/Malnutrition Findings: Nutrition Notes Start: 11/12/20 0 9:53 Freq: Status: Active Protocol: Document 11/20/20 10:15 AT (Rec: 11/20/20 10:31 AT [id number]) Co-Sign 11/20/20 10:15 Nutrition Notes Need for Assessment generated from: Education Initial or Follow up Reassessment Current Diagnosis Hypertension Other Pertinent Diagnosis AMS, Neuropathy, Depression, hx EtOH abuse, Metabolic Encephalopathy Current Diet Cardiac Diet Labs/Tests 11/17 Na 130 Cr 0.6 Hgb 10.8 Pertinent Medications Reviewed Height 5 ft 10 in Weight 79.1 kg Usual Body Weight 68.18 kg [place] Body Weight (kg) 75.45 BMI 25.0 Weight Status Overweight Subjective/Other Information Follow up for stable intakes and ONS tolerance. Pt reports consuming between 80-85% of breakfast this morning. Pt has intakes of 100% x 5 days in the chart. Pt would like to remain on ONS. Pt does not typically eat 3 meals per day outside of the hospital. Pt feels positive about weight gain. Meals and ONS are providing over nutrition. Will reduce ONS to 1 daily; pt reports drinking Nutrimen at home. Injection Molding Machine Offbearer went over general healthy nutrition and heart healthy nutrition, pt refused handout due to inability to see well without reading glasses. Percent of energy/protein needs met: 100%/100% Burn Absent Trauma Absent GI Symptoms None Current % PO Good (75-100%) Minimum of two criteria No physical signs of malnutrition #2 Nutrition Diagnosis Limited adherence to nutrition -related recommendations Etiology HTN, EtOH abuse As Evidenced by Signs and Symptoms pt had questions, no previous diet education Is patient on ventilator? No Is Patient Ambulatory and/or Out of Bed Yes REE-(Anton-St. Jeor-ambulatory/OOB) [ 2082.925 [id number]] Calculation Used for Recommendations Anton-St Jeor Additional Notes PRO needs: 63-79g (0.8-1g/kg) Fluid needs: 1mL/kcal or per MD Nutrition Intervention Change Diet Order: Continue current Add Supplement/Snack (indicate name/kcal Ensure daily /protein ) Provides kCal: 350 Provides Protein (gm) 20 Teaching Recipient Patient Learning Readiness Good Teaching Methods Discussion Response to Teaching Verbalize understanding Barriers to Learning Visual RD phone number provided Yes Patient aware of follow up options Yes Goal #1 Meet at least 75% of EER and protein needs via diet and ONS Goal #2 Understanding the importance of adhering to a Cardiac Diet and limiting EtOH intake Anticipated Discharge Needs: Cardiac diet with ONS PRN Follow-Up By: 11/27/20 Additional Comments F/U stable intakes
[2020-11-25] MEDS: ACETAMINOPHEN 325 MG TAB PO PRN (14:22)
--- NOTE | 2020-11-25 18:45 | Event Note ---
Date: 11/25/20 I called patient's next of kin his sister Ms. Kerry Pacheco at [phone] and discussed with her the patient's condition, tests and reports, consultants recommendation, treatment and discharge planning in detail. She had numerous questions answered all of them and encouraged her to call back if she has any new questions or concerns, I also advised her to talk to case management if patient has any discharge needs, she verbalized understanding. I informed patient's nurse Ms. Bowling of the above conversation
[2020-11-26] MEDS: PENICILLIN G POTASSIUM 4 MIL.UNITS in SODIUM CHLORIDE 0.9% 50 ML IV SCH ×6 (02:20→21:09)
--- NOTE | 2020-11-26 08:33 | Progress Note ---
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 Patient refused lumbar puncture Continue IV penicillin stop date 11/28/2020 per ID IV penicillin G 4,000,000[4 million units every 4 hours] or 20,000,000 units continuous infusion daily for 14 days stop date 11/28/2020 ID following, Neuro evaluated the patient --Hyponatremia; present on admission sodium 125 Significantly improved --h/o EtOH Abuse No symptoms or signs of withdrawal Thiamine and Folic Acid --Tobacco abuse Smoking cessation counseling done, nicotine patch as needed --HTN; well controlled Continue current antihypertensives --Severe protein caloric malnutrition secondary to alcohol use Dietary supplements --DVT PPX: Heparin CODE STATUS: Full Disposition: Continue treatment for syphilis, IV infusion of penicillin per ID recommendations. Outpatient ophthalmology evaluation for worsening eyesight Ophthalmology service not available ophthalmology service not available 11/17/2020. Patient reportedly declined LP. ID started penicillin G 4,000,000 units every 4 hours or 20,000,000 units as continuous infusion daily for 14 days ending on 11/28. Midline ordered. Will discuss with case management possibility of patient receiving IV penicillin in a rehab facility versus LTAC. However, patient unfunded. 11/18/2020. Cont. penicillin G 4,000,000 units every 4 hours or 20,000,000 units as continuous infusion daily for 14 days ending on 11/28. Midline ordered. Will discuss with case management possibility of patient receiving IV penicillin in a rehab facility versus LTAC. However, patient unfunded. 11/19/2020. Continue IV penicillin G 4,000,000 units every 4 hours as continuous infusion daily for 14 days ending 11/28/2020. Midline ordered. Plan discussed with the sister. Patient is unfunded. 11/20/2020. Continue IV penicillin per ID recommendations. 11/21/2020. Continue IV penicillin per ID recommendations. Patient with unfortunate social issues. Per case management, sister reports patient has been evicted and will need assistance in finding somewhere to live. Patient is also unfunded. 11/22/2020. Patient still remains somewhat confused. Continue IV penicillin per ID recommendations. Patient with unfortunate social issues. Per case management, sister reports patient has been evicted and will need assistance in finding somewhere to live. Patient is also unfunded. 11/23/2020. Patient appears to be back to baseline with mental status. Patient alert and oriented x3. Continue IV penicillin per ID recommendations. Patient with unfortunate social issues. Per case management, sister reports patient has been evicted and will need assistance in finding somewhere to live. Patient is also unfunded 11/24/2020; today's patient's birthday anxious to go home, however patient is receiving 4,000,000 units IV penicillin G every 4 hours as recommended by ID Stop date 11/28/2020. 11/25/2020; patient feels better no new complaints, all dressed up ready to go home, I explained to the patient he has 3 more days of antibiotics DC planning per case management, I called patient's next of kin Ms. Kerry Pacheco at [phone] and updated patient's condition, treatment and discharge plan. Answered all her questions 11/26/2020; patient feels better no new complaints Waiting to finish his treatment and go home on 11/28/2020 11/27/20; patient's Covid test negative today Will complete IV antibiotics on 11/28/20 History Interval history: I have seen and examined the patient at the bedside Patient's chart and medications reviewed Patient feels better no new complaints Patient will be completing his IV penicillin on 11/28/2020 Vital signs noted Hospitalist Physical - Constitutional Vitals: Temp Pulse Resp BP Pulse Ox 97.1 F L 69 17 144/84 98 11/26/20 05:23 11/26/20 05:23 11/26/20 05:23 11/26/20 05:23 11/26/20 05:23 General appearance: Present: no acute distress, well-nourished, other (Confused at times) - EENT Eyes: Present: PERRL, EOM intact - Neck Neck: Present: supple, normal ROM - Respiratory Respiratory effort: normal Respiratory: bilateral: diminished, negative: rales, rhonchi, wheezing - Cardiovascular Rhythm: regular Heart Sounds: Present: S1 & S2 - Extremities Extremities: no ischemia, No edema - Abdominal General gastrointestinal: soft, non-tender, non-distended, normal bowel sounds - Integumentary Integumentary: Present: clear, warm - Psychiatric Psychiatric: appropriate mood/affect, depressed - Neurologic Neurologic: moves all extremities HEART Score - HEART Score Troponin: Troponin T < 0.010 ng/mL (0.00-0.029) 11/11/20 20:06 Results - Labs CBC & Chem 7: 11/24/20 06:00 11/24/20 06:00 Labs: Laboratory Last Values WBC 7.9 K/mm3 (4.5-11.0) 11/24/20 06:00 RBC 3.13 M/mm3 (3.65-5.03) L 11/24/20 06:00 Hgb 10.7 gm/dl (11.8-15.2) L 11/24/20 06:00 Hct 31.4 % (35.5-45.6) L 11/24/20 06:00 MCV 100 fl (84-94) H 11/24/20 06:00 MCH 34 pg (28-32) H 11/24/20 06:00 MCHC 34 % (32-34) 11/24/20 06:00 RDW 13.7 % (13.2-15.2) 11/24/20 06:00 Plt Count 383 K/mm3 (140-440) 11/24/20 06:00 Lymph % (Auto) 10.8 % (13.4-35.0) L 11/13/20 07:18 [place] % (Auto) 10.9 % (0.0-7.3) H 11/13/20 07:18 Eos % (Auto) 1.8 % (0.0-4.3) 11/13/20 07:18 Baso % (Auto) 0.4 % (0.0-1.8) 11/13/20 07:18 Lymph # (Auto) 0.8 K/mm3 (1.2-5.4) L 11/13/20 07:18 [place] # (Auto) 0.8 K/mm3 (0.0-0.8) 11/13/20 07:18 Eos # (Auto) 0.1 K/mm3 (0.0-0.4) 11/13/20 07:18 Baso # (Auto) 0.0 K/mm3 (0.0-0.1) 11/13/20 07:18 Add Manual Diff Complete 11/24/20 06:00 Total Counted 100 11/24/20 06:00 Seg Neutrophils % 76.1 % (40.0-70.0) H 11/13/20 07:18 Seg Neuts % (Manual) 61.0 % (40.0-70.0) 11/24/20 06:00 Lymphocytes % (Manual) 20.0 % (13.4-35.0) 11/24/20 06:00 Monocytes % (Manual) 14.0 % (0.0-7.3) H 11/24/20 06:00 Eosinophils % (Manual) 4.0 % (0.0-4.3) 11/24/20 06:00 Basophils % (Manual) 4.0 % (0.0-1.8) H 11/21/20 05:29 Metamyelocytes % 1.0 % 11/24/20 06:00 Nucleated RBC % Not Reportable 11/24/20 06:00 Seg Neutrophils # 5.8 K/mm3 (1.8-7.7) 11/13/20 07:18 Seg Neutrophils # Man 4.8 K/mm3 (1.8-7.7) 11/24/20 06:00 Band Neutrophils # 0.0 K/mm3 11/24/20 06:00 Lymphocytes # (Manual) 1.6 K/mm3 (1.2-5.4) 11/24/20 06:00 Abs React Lymphs (Man) 0.0 K/mm3 11/24/20 06:00 Monocytes # (Manual) 1.1 K/mm3 (0.0-0.8) H 11/24/20 06:00 Eosinophils # (Manual) 0.3 K/mm3 (0.0-0.4) 11/24/20 06:00 Basophils # (Manual) 0.0 K/mm3 (0.0-0.1) 11/24/20 06:00 Metamyelocytes # 0.1 K/mm3 11/24/20 06:00 Myelocytes # 0.0 K/mm3 11/24/20 06:00 Promyelocytes # 0.0 K/mm3 11/24/20 06:00 Blast Cells # 0.0 K/mm3 11/24/20 06:00 WBC Morphology Not Reportable 11/24/20 06:00 Hypersegmented Neuts Not Reportable 11/24/20 06:00 Hyposegmented Neuts Not Reportable 11/24/20 06:00 Hypogranular Neuts Not Reportable 11/24/20 06:00 Smudge Cells Not Reportable 11/24/20 06:00 Toxic Granulation Not Reportable 11/24/20 06:00 Toxic Vacuolation Not Reportable 11/24/20 06:00 Dohle Bodies Not Reportable 11/24/20 06:00 Pelger-Huet Anomaly Not Reportable 11/24/20 06:00 Damian Rods Not Reportable 11/24/20 06:00 Platelet Estimate Consistent w auto 11/24/20 06:00 Clumped Platelets Not Reportable 11/24/20 06:00 Plt Clumps, EDTA Not Reportable 11/24/20 06:00 Large Platelets Not Reportable 11/24/20 06:00 Giant Platelets Not Reportable 11/24/20 06:00 Platelet Satelliting Not Reportable 11/24/20 06:00 Plt Morphology Comment Not Reportable 11/24/20 06:00 RBC Morphology Not Reportable 11/24/20 06:00 Dimorphic RBCs Not Reportable 11/24/20 06:00 Polychromasia Not Reportable 11/24/20 06:00 Hypochromasia Not Reportable 11/24/20 06:00 Poikilocytosis Not Reportable 11/24/20 06:00 Anisocytosis 1+ 11/24/20 06:00 Microcytosis Not Reportable 11/24/20 06:00 Macrocytosis Not Reportable 11/24/20 06:00 Spherocytes Not Reportable 11/24/20 06:00 Pappenheimer Bodies Not Reportable 11/24/20 06:00 Sickle Cells Not Reportable 11/24/20 06:00 Target Cells Not Reportable 11/24/20 06:00 Tear Drop Cells Not Reportable 11/24/20 06:00 Ovalocytes Not Reportable 11/24/20 06:00 Helmet Cells Not Reportable 11/24/20 06:00 [place] Bodies Not Reportable 11/24/20 06:00 [place] Rings Not Reportable 11/24/20 06:00 Chante Cells Not Reportable 11/24/20 06:00 Bite Cells Not Reportable 11/24/20 06:00 Crenated Cell Not Reportable 11/24/20 06:00 Elliptocytes Not Reportable 11/24/20 06:00 Acanthocytes (Spur) Not Reportable 11/24/20 06:00 Rouleaux Not Reportable 11/24/20 06:00 Hemoglobin C Crystals Not Reportable 11/24/20 06:00 Schistocytes Not Reportable 11/24/20 06:00 Malaria parasites Not Reportable 11/24/20 06:00 Peter Bodies Not Reportable 11/24/20 06:00 Hem Pathologist Commnt No 11/24/20 06:00 PT 12.7 Sec. (12.2-14.9) 11/11/20 20:06 INR 0.96 (0.87-1.13) 11/11/20 20:06 APTT 30.5 Sec. (24.2-36.6) 11/11/20 20:06 Sodium 134 mmol/L (137-145) L 11/24/20 06:00 Potassium 4.1 mmol/L (3.6-5.0) 11/24/20 06:00 Chloride 97.6 mmol/L (98-107) L 11/24/20 06:00 Carbon Dioxide 27 mmol/L (22-30) 11/24/20 06:00 Anion Gap 14 mmol/L 11/24/20 06:00 BUN 16 mg/dL (9-20) 11/24/20 06:00 Creatinine 0.8 mg/dL (0.8-1.3) 11/24/20 06:00 Estimated GFR > 60 ml/min 11/24/20 06:00 BUN/Creatinine Ratio 20 % 11/24/20 06:00 Glucose 81 mg/dL (75-100) 11/24/20 06:00 Hemoglobin A1c 4.7 % (4-6) 11/12/20 02:58 Osmolality 268 Mosm/kg 11/12/20 02:58 Lactic Acid 1.00 mmol/L (0.7-2.0) 11/11/20 20:06 Calcium 9.5 mg/dL (8.4-10.2) 11/24/20 06:00 Phosphorus 3.30 mg/dL (2.5-4.5) 11/12/20 02:58 Magnesium 1.20 mg/dL (1.7-2.3) L 11/12/20 02:58 Ferritin 272.0 ng/mL (30.0-300.0) 11/12/20 06:42 Total Bilirubin 0.30 mg/dL (0.1-1.2) 11/11/20 20:06 AST 29 units/L (5-40) 11/11/20 20:06 ALT 27 units/L (7-56) 11/11/20 20:06 Alkaline Phosphatase 85 units/L (35-129) 11/11/20 20:06 Ammonia 38.0 umol/L (25-60) 11/11/20 20:06 Total Creatine Kinase 141 units/L (55-170) 11/11/20 20:06 Troponin T < 0.010 ng/mL (0.00-0.029) 11/11/20 20:06 Total Protein 6.1 g/dL (6.3-8.2) L 11/11/20 20:06 Albumin 3.9 g/dL (3.9-5) 11/11/20 20:06 Albumin/Globulin Ratio 1.8 % 11/11/20 20:06 Vitamin B1 24 nmol/L (8-30) 11/12/20 17:54 Vitamin B12 505.1 pg/mL (211-911) 11/12/20 17:54 TSH 1.280 mlU/mL (0.270-4.200) 11/12/20 17:54 Urine Color Yellow (Yellow) 11/12/20 01:12 Urine Turbidity Clear (Clear) 11/12/20 01:12 Urine pH 5.0 (5.0-7.0) 11/12/20 01:12 Ur Specific [place] 1.012 (1.003-1.030) 11/12/20 01:12 Urine Protein <15 mg/dl mg/dL (Negative) 11/12/20 01:12 Urine Glucose (UA) Neg mg/dL (Negative) 11/12/20 01:12 Urine Ketones Neg mg/dL (Negative) 11/12/20 01:12 Urine Blood Neg (Negative) 11/12/20 01:12 Urine Nitrite Neg (Negative) 11/12/20 01:12 Urine Bilirubin Neg (Negative) 11/12/20 01:12 Urine Urobilinogen < 2.0 mg/dL (<2.0) 11/12/20 01:12 Ur Leukocyte Esterase Neg (Negative) 11/12/20 01:12 Urine WBC (Auto) 1.0 /HPF (0.0-6.0) 11/12/20 01:12 Urine RBC (Auto) 1.0 /HPF (0.0-6.0) 11/12/20 01:12 Urine Mucus Few /HPF 11/12/20 01:12 Urine Osmolality 149 Mosm/kg 11/12/20 12:19 Salicylates < 0.3 mg/dL (2.8-20.0) L 11/11/20 20:06 Urine Opiates Screen Negative 11/12/20 12:19 Urine Methadone Screen Negative 11/12/20 12:19 Acetaminophen 5.0 ug/mL (10.0-30.0) L 11/11/20 20:06 Ur Barbiturates Screen Negative 11/12/20 12:19 Ur Phencyclidine Scrn Negative 11/12/20 12:19 Ur Amphetamines Screen Negative 11/12/20 12:19 U Benzodiazepines Scrn Negative 11/12/20 12:19 Urine Cocaine Screen Negative 11/12/20 12:19 U Marijuana (THC) Screen Negative 11/12/20 12:19 Drugs of Abuse Note Disclamer 11/12/20 12:19 Plasma/Serum Alcohol < 0.01 % (0-0.07) 11/11/20 20:06 Syphilis IgG Antibody Reactive (NonReactive) A 11/12/20 17:54 RPR Titer 1:8 11/12/20 17:54 T.pallidum Ab (FTA-ABS) Reactive (Nonreactive) H 11/12/20 17:54 Coronavirus (PCR) Negative (Negative) 11/14/20 Unknown HIV 1&2 Antibody Rapid Non react (Non React) 11/12/20 17:54 HIV P24 Antigen Non react (Non React) 11/12/20 17:54 [place]/IV: Voiding Method Toilet Active Medications - Current Medications Current Medications: Generic Name Dose Route Start Last Admin Trade Name Freq PRN Reason Stop Dose Admin Acetaminophen 650 mg 11/12/20 02:41 11/25/20 14:22 Acetaminophen 325 Mg Tab PO 650 mg Q4H PRN Administration Pain MILD(1-3)/Fever >100.5/ALMENDAREZ Amlodipine Besylate 10 mg 11/12/20 10:00 11/25/20 10:08 Amlodipine 10 Mg Tab PO 10 mg QDAY GIULIA Administration Clonidine HCl 0.2 mg 11/12/20 11:00 11/19/20 11:00 Clonidine Tts 0.2 Mg/24 Hr Patch TD 0.2 mg Th GIULIA Administration Docusate Sodium 100 mg 11/12/20 10:00 11/25/20 21:20 Docusate Sodium 100 Mg Cap PO 100 mg BID GIULIA Administration Folic Acid 1 mg 11/12/20 10:00 11/25/20 10:07 Folic Acid 1 Mg Tab PO 1 mg QDAY GIULIA Administration Heparin Sodium (Porcine) 5,000 unit 11/12/20 10:00 11/25/20 21:19 Heparin 5,000 Unit/1 Ml Vial SUB-Q 5,000 unit Q12HR GIULIA Administration Penicillin G Potassium 4 mil. 50 mls @ 100 mls/hr 11/14/20 14:00 11/26/20 05: 48 units/ Sodium Chloride IV 11/28/20 10:29 100 mls/hr Q4HR GIULIA Administration Lorazepam 2 mg 11/12/20 02:43 11/24/20 18:25 Lorazepam 2 Mg/Ml Vial IV 2 mg Q1H PRN Administration Amairani 8-15 Multivitamins 1 each 11/12/20 10:00 11/25/20 10:07 Multivitamins ,Therapeutic Tab PO 1 each QDAY GIULIA Administration Nicotine 14 mg 11/12/20 10:00 11/25/20 10:08 Nicotine 14 Mg/24 Hr Patch TD 14 mg QDAY GIULIA Administration Ondansetron HCl 4 mg 11/12/20 02:41 Ondansetron 4 Mg/2 Ml Inj IV Q8H PRN Nausea And Vomiting Sodium Chloride 10 ml 11/12/20 10:00 11/25/20 21:20 Sodium Chloride 0.9% 10 Ml Flush Syringe IV 10 ml BID GIULIA Administration Sodium Chloride 10 ml 11/12/20 02:41 11/12/20 05:39 Sodium Chloride 0.9% 10 Ml Flush Syringe IV 10 ml PRN PRN Administration LINE FLUSH Thiamine HCl 100 mg 11/12/20 10:00 11/25/20 10:10 Thiamine 100 Mg Tab PO 100 mg QDAY GIULIA Administration Nutrition/Malnutrition Assess - Dietary Evaluation Nutrition/Malnutrition Findings: Nutrition Notes Start: 11/12/20 09:53 Freq: Status: Active Protocol: Document 11/20/20 10:15 AT (Rec: 11/20/20 10:31 AT [id number]) Co-Sign 11/20/20 10:15 MK Nutrition Notes Need for Assessment generated from: Education Initial or Follow up Reassessment Current Diagnosis Hypertension Other Pertinent Diagnosis AMS, Neuropathy, Depression, hx EtOH abuse, Metabolic Encephalopathy Current Diet Cardiac Diet Labs/Tests 11/17 Na 130 Cr 0.6 Hgb 10.8 Pertinent Medications Reviewed Height 5 ft 10 in Weight 79.1 kg Usual Body Weight 68.18 kg [place] Body Weight (kg) 75.45 BMI 25.0 Weight Status Overweight Subjective/Other Information Follow up for stable intakes and ONS tolerance. Pt reports consuming between 80-85% of breakfast this morning. Pt has intakes of 100% x 5 days in the chart. Pt would like to remain on ONS. Pt does not typically eat 3 meals per day outside of the hospital. Pt feels positive about weight gain. Meals and ONS are providing over nutrition. Will reduce ONS to 1 daily; pt reports drinking Nutrimen at home. Occupational Therapy Co Director went over general healthy nutrition and heart healthy nutrition, pt refused handout due to inability to see well without reading glasses. Percent of energy/protein needs met: 100%/100% Burn Absent Trauma Absent GI Symptoms None Current % PO Good (75-100%) Minimum of two criteria No physical signs of malnutrition #2 Nutrition Diagnosis Limited adherence to nutrition -related recommendations Etiology HTN, EtOH abuse As Evidenced by Signs and Symptoms pt had questions, no previous diet education Is patient on ventilator? No Is Patient Ambulatory and/or Out of Bed Yes REE-([place]-St. Jeor-ambulatory/OOB) [ 2082.925 [id number]] Calculation Used for Recommendations [place]-St Jeor Additional Notes PRO needs: 63-79g (0.8-1g/kg) Fluid needs: 1mL/kcal or per MD Nutrition Intervention Change Diet Order: Continue current Add Supplement/Snack (indicate name/kcal Ensure daily /protein ) Provides kCal: 350 Provides Protein (gm) 20 Teaching Recipient Patient Learning Readiness Good Teaching Methods Discussion Response to Teaching Verbalize understanding Barriers to Learning Visual RD phone number provided Yes Patient aware of follow up options Yes Goal #1 Meet at least 75% of EER and protein needs via diet and ONS Goal #2 Understanding the importance of adhering to a Cardiac Diet and limiting EtOH intake Anticipated Discharge Needs: Cardiac diet with ONS PRN Follow-Up By: 11/27/20 Additional Comments F/U stable intakes
[2020-11-26] MEDS: cloNIDine TTS 0.2 MG/24 HR PATCH TD SCH ×2 (10:18→10:19)
[2020-11-26] MEDS: NICOTINE 14 MG/24 HR PATCH TD SCH (10:18)
[2020-11-26] MEDS: MULTIVITAMINS ,THERAPEUTIC TAB PO SCH (10:19)
[2020-11-26] MEDS: amLODIPine 10 MG TAB PO SCH (10:19)
[2020-11-26] MEDS: THIAMINE 100 MG TAB PO SCH (10:19)
[2020-11-26] MEDS: FOLIC ACID 1 MG TAB PO SCH (10:19)
[2020-11-26] MEDS: HEPARIN 5,000 UNIT/1 ML VIAL SUB-Q SCH ×2 (10:19→21:09)
[2020-11-26] MEDS: DOCUSATE SODIUM 100 MG CAP PO SCH ×2 (10:19→21:09)
[2020-11-26] MEDS: FLUoxetine 20 MG CAP PO SCH (17:11)
[2020-11-26] MEDS: ACETAMINOPHEN 325 MG TAB PO PRN ×2 (17:52→20:29)
--- NOTE | 2020-11-26 18:56 | Event Note ---
Date: 11/26/20 Patient sister Ms. Kerry Pacheco had many questions asked me to call her ,I called the patient's sister Ms. Valeri Pacheco and updated patient's condition treatment and discharge plan Patient had many questions I answered all of them
[2020-11-27] MEDS: PENICILLIN G POTASSIUM 4 MIL.UNITS in SODIUM CHLORIDE 0.9% 50 ML IV SCH ×6 (02:16→22:48)
[2020-11-27] MEDS: DOCUSATE SODIUM 100 MG CAP PO SCH ×2 (09:32→22:52)
[2020-11-27] MEDS: amLODIPine 10 MG TAB PO SCH (09:32)
[2020-11-27] MEDS: FOLIC ACID 1 MG TAB PO SCH (09:32)
[2020-11-27] MEDS: FLUoxetine 20 MG CAP PO SCH (09:32)
[2020-11-27] MEDS: HEPARIN 5,000 UNIT/1 ML VIAL SUB-Q SCH ×3 (09:33→22:52)
[2020-11-27] MEDS: THIAMINE 100 MG TAB PO SCH (09:33)
[2020-11-27] MEDS: NICOTINE 14 MG/24 HR PATCH TD SCH (09:33)
[2020-11-27] MEDS: MULTIVITAMINS ,THERAPEUTIC TAB PO SCH (09:33)
--- NOTE | 2020-11-27 10:15 | Progress Note ---
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 Patient refused lumbar puncture Continue IV penicillin stop date 11/28/2020 per ID IV penicillin G 4,000,000[4 million units every 4 hours] or 20,000,000 units continuous infusion daily for 14 days stop date 11/28/2020 ID following Continue supportive care Neuro evaluated the patient --Hyponatremia; present on admission sodium 125 Significantly improved Closely monitor electrolytes --h/o EtOH Abuse No symptoms or signs of withdrawal Patient was on CIWA protocol - Thiamine and Folic Acid No signs of alcohol withdrawal Tobacco abuse -Current every day smoker -Counseled for smoking cessation -Nicotine patch when necessary HTN -Monitor BP -Resume home hypertensive meds Severe protein caloric malnutrition secondary to alcohol use Dietary supplements DVT PPX: Heparin CODE STATUS: Full Disposition: Continue treatment for syphilis, IV infusion of penicillin per ID recommendations. Outpatient ophthalmology evaluation for worsening eyesight Ophthalmology service not available ophthalmology service not available 11/17/2020. Patient reportedly declined LP. ID started penicillin G 4,000,000 units every 4 hours or 20,000,000 units as continuous infusion daily for 14 days ending on 11/28. Midline ordered. Will discuss with case management possibility of patient receiving IV penicillin in a rehab facility versus LTAC. However, patient unfunded. 11/18/2020. Cont. penicillin G 4,000,000 units every 4 hours or 20,000,000 units as continuous infusion daily for 14 days ending on 11/28. Midline ordered. Will discuss with case management possibility of patient receiving IV penicillin in a rehab facility versus LTAC. However, patient unfunded. 11/19/2020. Continue IV penicillin G 4,000,000 units every 4 hours as continuous infusion daily for 14 days ending 11/28/2020. Midline ordered. Plan discussed with the sister. Patient is unfunded. 11/20/2020. Continue IV penicillin per ID recommendations. 11/21/2020. Continue IV penicillin per ID recommendations. Patient with unfortunate social issues. Per case management, sister reports patient has been evicted and will need assistance in finding somewhere to live. Patient is also unfunded. 11/22/2020. Patient still remains somewhat confused. Continue IV penicillin per ID recommendations. Patient with unfortunate social issues. Per case management, sister reports patient has been evicted and will need assistance in finding somewhere to live. Patient is also unfunded. 11/23/2020. Patient appears to be back to baseline with mental status. Patient alert and oriented x3. Continue IV penicillin per ID recommendations. Patient with unfortunate social issues. Per case management, sister reports patient has been evicted and will need assistance in finding somewhere to live. Patient is also unfunded 11/24/2020; today's patient's birthday anxious to go home, however patient is receiving 4,000,000 units IV penicillin G every 4 hours as recommended by ID Stop date 11/28/2020. 11/25/2020; patient feels better no new complaints, all dressed up ready to go home, I explained to the patient he has 3 more days of antibiotics DC planning per case management, I called patient's next of kin Ms. Kerry Pacheco at [phone] and updated patient's condition, treatment and discharge plan. Answered all her questions 11/26/2020; patient feels better no new complaints Waiting to finish his treatment and go home on 11/28/2020 11/27/2020; no new complaints, COVID-19 test today is negative Possible discharge tomorrow after completion of treatment History Interval history: I have seen and examined the patient at the bedside Patient's chart and medications reviewed Patient feels better, no new complaints Vital signs noted Hospitalist Physical - Constitutional Vitals: Temp Pulse Resp BP Pulse Ox 98 F 65 18 153/88 95 11/27/20 04:15 11/27/20 04:15 11/27/20 04:15 11/27/20 04:15 11/27/20 04:15 General appearance: Present: no acute distress, well-nourished, other (Confused at times) - EENT Eyes: Present: PERRL, EOM intact ENT: hearing intact, clear oral mucosa - Neck Neck: Present: supple, normal ROM - Respiratory Respiratory effort: normal Respiratory: bilateral: diminished, negative: rales, rhonchi, wheezing - Cardiovascular Rhythm: regular Heart Sounds: Present: S1 & S2 - Extremities Extremities: no ischemia, No edema - Abdominal General gastrointestinal: soft, non-tender, non-distended, normal bowel sounds - Integumentary Integumentary: Present: clear, warm - Psychiatric Psychiatric: appropriate mood/affect, cooperative - Neurologic Neurologic: CNII-XII intact, moves all extremities HEART Score - HEART Score Troponin: Troponin T < 0.010 ng/mL (0.00-0.029) 11/11/20 20:06 Results - Labs CBC & Chem 7: 11/24/20 06:00 11/24/20 06:00 Labs: Laboratory Last Values WBC 7.9 K/mm3 (4.5-11.0) 11/24/20 06:00 RBC 3.13 M/mm3 (3.65-5.03) L 11/24/20 06:00 Hgb 10.7 gm/dl (11.8-15.2) L 11/24/20 06:00 Hct 31.4 % (35.5-45.6) L 11/24/20 06:00 MCV 100 fl (84-94) H 11/24/20 06:00 MCH 34 pg (28-32) H 11/24/20 06:00 MCHC 34 % (32-34) 11/24/20 06:00 RDW 13.7 % (13.2-15.2) 11/24/20 06:00 Plt Count 383 K/mm3 (140-440) 11/24/20 06:00 Lymph % (Auto) 10.8 % (13.4-35.0) L 11/13/20 07:18 Coffee % (Auto) 10.9 % (0.0-7.3) H 11/13/20 07:18 Eos % (Auto) 1.8 % (0.0-4.3) 11/13/20 07:18 Baso % (Auto) 0.4 % (0.0-1.8) 11/13/20 07:18 Lymph # (Auto) 0.8 K/mm3 (1.2-5.4) L 11/13/20 07:18 Coffee # (Auto) 0.8 K/mm3 (0.0-0.8) 11/13/20 07:18 Eos # (Auto) 0.1 K/mm3 (0.0-0.4) 11/13/20 07:18 Baso # (Auto) 0.0 K/mm3 (0.0-0.1) 11/13/20 07:18 Add Manual Diff Complete 11/24/20 06:00 Total Counted 100 11/24/20 06:00 Seg Neutrophils % 76.1 % (40.0-70.0) H 11/13/20 07:18 Seg Neuts % (Manual) 61.0 % (40.0-70.0) 11/24/20 06:00 Lymphocytes % (Manual) 20.0 % (13.4-35.0) 11/24/20 06:00 Monocytes % (Manual) 14.0 % (0.0-7.3) H 11/24/20 06:00 Eosinophils % (Manual) 4.0 % (0.0-4.3) 11/24/20 06:00 Basophils % (Manual) 4.0 % (0.0-1.8) H 11/21/20 05:29 Metamyelocytes % 1.0 % 11/24/20 06:00 Nucleated RBC % Not Reportable 11/24/20 06:00 Seg Neutrophils # 5.8 K/mm3 (1.8-7.7) 11/13/20 07:18 Seg Neutrophils # Man 4.8 K/mm3 (1.8-7.7) 11/24/20 06:00 Band Neutrophils # 0.0 K/mm3 11/24/20 06:00 Lymphocytes # (Manual) 1.6 K/mm3 (1.2-5.4) 11/24/20 06:00 Abs React Lymphs (Man) 0.0 K/mm3 11/24/20 06:00 Monocytes # (Manual) 1.1 K/mm3 (0.0-0.8) H 11/24/20 06:00 Eosinophils # (Manual) 0.3 K/mm3 (0.0-0.4) 11/24/20 06:00 Basophils # (Manual) 0.0 K/mm3 (0.0-0.1) 11/24/20 06:00 Metamyelocytes # 0.1 K/mm3 11/24/20 06:00 Myelocytes # 0.0 K/mm3 11/24/20 06:00 Promyelocytes # 0.0 K/mm3 11/24/20 06:00 Blast Cells # 0.0 K/mm3 11/24/20 06:00 WBC Morphology Not Reportable 11/24/20 06:00 Hypersegmented Neuts Not Reportable 11/24/20 06:00 Hyposegmented Neuts Not Reportable 11/24/20 06:00 Hypogranular Neuts Not Reportable 11/24/20 06:00 Smudge Cells Not Reportable 11/24/20 06:00 Toxic Granulation Not Reportable 11/24/20 06:00 Toxic Vacuolation Not Reportable 11/24/20 06:00 Dohle Bodies Not Reportable 11/24/20 06:00 Pelger-Huet Anomaly Not Reportable 11/24/20 06:00 Damian Rods Not Reportable 11/24/20 06:00 Platelet Estimate Consistent w auto 11/24/20 06:00 Clumped Platelets Not Reportable 11/24/20 06:00 Plt Clumps, EDTA Not Reportable 11/24/20 06:00 Large Platelets Not Reportable 11/24/20 06:00 Giant Platelets Not Reportable 11/24/20 06:00 Platelet Satelliting Not Reportable 11/24/20 06:00 Plt Morphology Comment Not Reportable 11/24/20 06:00 RBC Morphology Not Reportable 11/24/20 06:00 Dimorphic RBCs Not Reportable 11/24/20 06:00 Polychromasia Not Reportable 11/24/20 06:00 Hypochromasia Not Reportable 11/24/20 06:00 Poikilocytosis Not Reportable 11/24/20 06:00 Anisocytosis 1+ 11/24/20 06:00 Microcytosis Not Reportable 11/24/20 06:00 Macrocytosis Not Reportable 11/24/20 06:00 Spherocytes Not Reportable 11/24/20 06:00 Pappenheimer Bodies Not Reportable 11/24/20 06:00 Sickle Cells Not Reportable 11/24/20 06:00 Target Cells Not Reportable 11/24/20 06:00 Tear Drop Cells Not Reportable 11/24/20 06:00 Ovalocytes Not Reportable 11/24/20 06:00 Helmet Cells Not Reportable 11/24/20 06:00 [place] Bodies Not Reportable 11/24/20 06:00 [place] Rings Not Reportable 11/24/20 06:00 [place] Cells Not Reportable 11/24/20 06:00 Bite Cells Not Reportable 11/24/20 06:00 Crenated Cell Not Reportable 11/24/20 06:00 Elliptocytes Not Reportable 11/24/20 06:00 Acanthocytes (Spur) Not Reportable 11/24/20 06:00 Rouleaux Not Reportable 11/24/20 06:00 Hemoglobin C Crystals Not Reportable 11/24/20 06:00 Schistocytes Not Reportable 11/24/20 06:00 Malaria parasites Not Reportable 11/24/20 06:00 Peter Bodies Not Reportable 11/24/20 06:00 Hem Pathologist Commnt No 11/24/20 06:00 PT 12.7 Sec. (12.2-14.9) 11/11/20 20:06 INR 0.96 (0.87-1.13) 11/11/20 20:06 APTT 30.5 Sec. (24.2-36.6) 11/11/20 20:06 Sodium 134 mmol/L (137-145) L 11/24/20 06:00 Potassium 4.1 mmol/L (3.6-5.0) 11/24/20 06:00 Chloride 97.6 mmol/L (98-107) L 11/24/20 06:00 Carbon Dioxide 27 mmol/L (22-30) 11/24/20 06:00 Anion Gap 14 mmol/L 11/24/20 06:00 BUN 16 mg/dL (9-20) 11/24/20 06:00 Creatinine 0.8 mg/dL (0.8-1.3) 11/24/20 06:00 Estimated GFR > 60 ml/min 11/24/20 06:00 BUN/Creatinine Ratio 20 % 11/24/20 06:00 Glucose 81 mg/dL (75-100) 11/24/20 06:00 Hemoglobin A1c 4.7 % (4-6) 11/12/20 02:58 Osmolality 268 Mosm/kg 11/12/20 02:58 Lactic Acid 1.00 mmol/L (0.7-2.0) 11/11/20 20:06 Calcium 9.5 mg/dL (8.4-10.2) 11/24/20 06:00 Phosphorus 3.30 mg/dL (2.5-4.5) 11/12/20 02:58 Magnesium 1.20 mg/dL (1.7-2.3) L 11/12/20 02:58 Ferritin 272.0 ng/mL (30.0-300.0) 11/12/20 06:42 Total Bilirubin 0.30 mg/dL (0.1-1.2) 11/11/20 20:06 AST 29 units/L (5-40) 11/11/20 20:06 ALT 27 units/L (7-56) 11/11/20 20:06 Alkaline Phosphatase 85 units/L (35-129) 11/11/20 20:06 Ammonia 38.0 umol/L (25-60) 11/11/20 20:06 Total Creatine Kinase 141 units/L (55-170) 11/11/20 20:06 Troponin T < 0.010 ng/mL (0.00-0.029) 11/11/20 20:06 Total Protein 6.1 g/dL (6.3-8.2) L 11/11/20 20:06 Albumin 3.9 g/dL (3.9-5) 11/11/20 20:06 Albumin/Globulin Ratio 1.8 % 11/11/20 20:06 Vitamin B1 24 nmol/L (8-30) 11/12/20 17:54 Vitamin B12 505.1 pg/mL (211-911) 11/12/20 17:54 TSH 1.280 mlU/mL (0.270-4.200) 11/12/20 17:54 Urine Color Yellow (Yellow) 11/12/20 01:12 Urine Turbidity Clear (Clear) 11/12/20 01:12 Urine pH 5.0 (5.0-7.0) 11/12/20 01:12 Ur Specific [place] 1.012 (1.003-1.030) 11/12/20 01:12 Urine Protein <15 mg/dl mg/dL (Negative) 11/12/20 01:12 Urine Glucose (UA) Neg mg/dL (Negative) 11/12/20 01:12 Urine Ketones Neg mg/dL (Negative) 11/12/20 01:12 Urine Blood Neg (Negative) 11/12/20 01:12 Urine Nitrite Neg (Negative) 11/12/20 01:12 Urine Bilirubin Neg (Negative) 11/12/20 01:12 Urine Urobilinogen < 2.0 mg/dL (<2.0) 11/12/20 01:12 Ur Leukocyte Esterase Neg (Negative) 11/12/20 01:12 Urine WBC (Auto) 1.0 /HPF (0.0-6.0) 11/12/20 01:12 Urine RBC (Auto) 1.0 /HPF (0.0-6.0) 11/12/20 01:12 Urine Mucus Few /HPF 11/12/20 01:12 Urine Osmolality 149 Mosm/kg 11/12/20 12:19 Salicylates < 0.3 mg/dL (2.8-20.0) L 11/11/20 20:06 Urine Opiates Screen Negative 11/12/20 12:19 Urine Methadone Screen Negative 11/12/20 12:19 Acetaminophen 5.0 ug/mL (10.0-30.0) L 11/11/20 20:06 Ur Barbiturates Screen Negative 11/12/20 12:19 Ur Phencyclidine Scrn Negative 11/12/20 12:19 Ur Amphetamines Screen Negative 11/12/20 12:19 U Benzodiazepines Scrn Negative 11/12/20 12:19 Urine Cocaine Screen Negative 11/12/20 12:19 U Marijuana (THC) Screen Negative 11/12/20 12:19 Drugs of Abuse Note Disclamer 11/12/20 12:19 Plasma/Serum Alcohol < 0.01 % (0-0.07) 11/11/20 20:06 Syphilis IgG Antibody Reactive (NonReactive) A 11/12/20 17:54 RPR Titer 1:8 11/12/20 17:54 T.pallidum Ab (FTA-ABS) Reactive (Nonreactive) H 11/12/20 17:54 Coronavirus (PCR) Negative (Negative) 11/14/20 Unknown HIV 1&2 Antibody Rapid Non react (Non React) 11/12/20 17:54 HIV P24 Antigen Non react (Non React) 11/12/20 17:54 [place]/IV: Voiding Method Toilet Active Medications - Current Medications Current Medications: Generic Name Dose Route Start Last Admin Trade Name Freq PRN Reason Stop Dose Admin Acetaminophen 650 mg 11/12/20 02:41 11/26/20 20:29 Acetaminophen 325 Mg Tab PO 650 mg Q4H PRN Administration Pain MILD(1-3)/Fever >100.5/ALMENDAREZ Amlodipine Besylate 10 mg 11/12/20 10:00 11/27/20 09:32 Amlodipine 10 Mg Tab PO 10 mg QDAY GIULIA Administration Clonidine HCl 0.2 mg 11/12/20 11:00 11/26/20 10:19 Clonidine Tts 0.2 Mg/24 Hr Patch TD 0.2 mg Th GIULIA Administration Docusate Sodium 100 mg 11/12/20 10:00 11/27/20 09:32 Docusate Sodium 100 Mg Cap PO 100 mg BID GIULIA Administration Fluoxetine HCl 40 mg 11/26/20 17:00 11/27/20 09:32 Fluoxetine 20 Mg Cap PO 40 mg QDAY GIULIA Administration Folic Acid 1 mg 11/12/20 10:00 11/27/20 09:32 Folic Acid 1 Mg Tab PO 1 mg QDAY GIULIA Administration Heparin Sodium (Porcine) 5,000 unit 11/12/20 10:00 11/26/20 21:09 Heparin 5,000 Unit/1 Ml Vial SUB-Q 5,000 unit Q12HR GIULIA Administration Penicillin G Potassium 4 mil. 50 mls @ 100 mls/hr 11/14/20 14:00 11/27/20 09:32 units/ Sodium Chloride IV 11/28/20 10:29 100 mls/hr Q4HR GIULIA Administration Lorazepam 2 mg 11/12/20 02:43 11/24/20 18:25 Lorazepam 2 Mg/Ml Vial IV 2 mg Q1H PRN Administration Amairani 8-15 Multivitamins 1 each 11/12/20 10:00 11/27/20 09:33 Multivitamins ,Therapeutic Tab PO 1 each QDAY GIULIA Administration Nicotine 14 mg 11/12/20 10:00 11/27/20 09:33 Nicotine 14 Mg/24 Hr Patch TD 14 mg QDAY GIULIA Administration Ondansetron HCl 4 mg 11/12/20 02:41 Ondansetron 4 Mg/2 Ml Inj IV Q8H PRN Nausea And Vomiting Sodium Chloride 10 ml 11/12/20 10:00 11/27/20 09:33 Sodium Chloride 0.9% 10 Ml Flush Syringe IV 10 ml BID GIULIA Administration Sodium Chloride 10 ml 11/12/20 02:41 11/12/20 05:39 Sodium Chloride 0.9% 10 Ml Flush Syringe IV 10 ml PRN PRN Administration LINE FLUSH Thiamine HCl 100 mg 11/12/20 10:00 11/27/20 09:33 Thiamine 100 Mg Tab PO 100 mg QDAY GIULIA Administration Nutrition/Malnutrition Assess - Dietary Evaluation Nutrition/Malnutrition Findings: Nutrition Notes Start: 11/12/20 09:53 Freq: Status: Active Protocol: Document 11/20/20 10:15 AT (Rec: 11/20/20 10:31 AT [id number]) Co-Sign 11/20/20 10:15 MK Nutrition Notes Need for Assessment generated from: Education Initial or Follow up Reassessment Current Diagnosis Hypertension Other Pertinent Diagnosis AMS, Neuropathy, Depression, hx EtOH abuse, Metabolic Encephalopathy Current Diet Cardiac Diet Labs/Tests 11/17 Na 130 Cr 0.6 Hgb 10.8 Pertinent Medications Reviewed Height 5 ft 10 in Weight 79.1 kg Usual Body Weight 68.18 kg [place] Body Weight (kg) 75.45 BMI 25.0 Weight Status Overweight Subjective/Other Information Follow up for stable intakes and ONS tolerance. Pt reports consuming between 80-85% of breakfast this morning. Pt has intakes of 100% x 5 days in the chart. Pt would like to remain on ONS. Pt does not typically eat 3 meals per day outside of the hospital. Pt feels positive about weight gain. Meals and ONS are providing over nutrition. Will reduce ONS to 1 daily; pt reports drinking Nutrimen at home. Transportation Specialist went over general healthy nutrition and heart healthy nutrition, pt refused handout due to inability to see well without reading glasses. Percent of energy/protein needs met: 100%/100% Burn Absent Trauma Absent GI Symptoms None Current % PO Good (75-100%) Minimum of two criteria No physical signs of malnutrition #2 Nutrition Diagnosis Limited adherence to nutrition -related recommendations Etiology HTN, EtOH abuse As Evidenced by Signs and Symptoms pt had questions, no previous diet education Is patient on ventilator? No Is Patient Ambulatory and/or Out of Bed Yes [facility] [ 3568.920 [id number]] Calculation Used for Recommendations [facility] Additional Notes PRO needs: 63-79g (0.8-1g/kg) Fluid needs: 1mL/kcal or per MD Nutrition Intervention Change Diet Order: Continue current Add Supplement/Snack (indicate name/kcal Ensure daily /protein ) Provides kCal: 350 Provides Protein (gm) 20 Teaching Recipient Patient Learning Readiness Good Teaching Methods Discussion Response to Teaching Verbalize understanding Barriers to Learning Visual RD phone number provided Yes Patient aware of follow up options Yes Goal #1 Meet at least 75% of EER and protein needs via diet and ONS Goal #2 Understanding the importance of adhering to a Cardiac Diet and limiting EtOH intake Anticipated Discharge Needs: Cardiac diet with ONS PRN Follow-Up By: 11/27/20 Additional Comments F/U stable intakes
[2020-11-27] MEDS: ACETAMINOPHEN 325 MG TAB PO PRN (16:12)
[2020-11-28] MEDS: PENICILLIN G POTASSIUM 4 MIL.UNITS in SODIUM CHLORIDE 0.9% 50 ML IV SCH ×4 (02:00→14:15)
--- NOTE | 2020-11-28 10:18 | Discharge Summary ---
Providers - Providers Date of Admission: 11/12/20 02:41 Date of discharge: 11/28/20 Attending physician: ROSETTE ORDONEZ 11/12/20 02:42 Consult to Physician [CONS] Routine Comment: Consulting Provider: BRANT LANE Physician Instructions: Reason For Exam: AMS 11/12/20 03:06 Consult to Mental Health [CONS] Routine Reason For Exam: new diag depresion on meds, hx ETOH abuse 11/12/20 16:51 Physical Therapy Evaluation and Treat [CONS] Routine Comment: Reason For Exam: weakness 11/13/20 07:32 Consult to Physician [CONS] Routine Comment: Consulting Provider: GIUSEPPE RIGGINS Physician Instructions: Reason For Exam: +syphilis screen 11/13/20 12:33 Consult to Case Management [CONS] Routine Services Needed at Discharge: Other Notified:: cm notified Comment:: IV abx Additional Physician Instructions: [facility] O: [phone] F: [phone] OUTPATIENT PARENTERAL ANTIBIOTIC THERAPY (OPAT) ORDERS Diagnoses: Neurosyphilis -Antimicrobial administration: IV penicillin G 20 million units daily as continuous infusion for 14 days ending 11/28/2020 - Remove mid line after last dose. Lines: Maintain IV access with weekly dressing changes and locks per protocol. Lab monitoring: - CBC with differential, Creatinine, ALT, AST once a week every Monday while on IV antibiotics. Please fax results to [phone] and call [phone] for critical lab results. MD [facility] Consult to PICC Line RN [CONS] Routine Reason For Exam: midline Type Line:: Midline Primary care physician: PERFORMANCE IMPROVEMENT ANALYST Hospitalization Reason for admission: Toxic metabolic encephalopathy Condition: Fair Pertinent studies: Chest x-ray CT head without contrast MRI brain Hospital course: 59-year-old male patient with significant history of alcohol tobacco abuse hypertension was admitted through emergency room with altered level of consciousness and bizarre behavior as well as hyponatremia. Patient was admitted with acute encephalopathy work-up is consistent with positive syphilis antibody and positive RPR infectious diseases was consulted, patient was advised lumbar puncture to rule out neurosyphilis however patient refused. Patient was also evaluated by neurologist Patient was empirically started on IV penicillin for total 14 days. Patient's mental status slowly but gradually improved however still patient gets confused intermittently, and forgets things Patient's Covid test was negative on 11/14/2020 as well as 11/26/2020 Patient symptoms slowly but gradually improved, patient will be finishing his last dose of penicillin today completing 14 days [on 11/28/2020] of 4,000,000 units of penicillin G every 4 hours. Today patient is comfortable no new complaints vital signs stable, physical examination prior to discharge did not show any new changes Continues to be confused intermittently. 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 Patient refused lumbar puncture Continue IV penicillin stop date 11/28/2020 per ID IV penicillin G 4,000,000[4 million units every 4 hours] or 20,000,000 units continuous infusion daily for 14 days stop date 11/28/2020 ID following Continue supportive care Neuro evaluated the patient --Hyponatremia; present on admission sodium levels improved --h/o EtOH Abuse No symptoms or signs of withdrawal Patient was on CIWA protocol - Thiamine and Folic Acid No signs of alcohol withdrawal Tobacco abuse -Current every day smoker -Counseled for smoking cessation -Nicotine patch when necessary HTN -Monitor BP -Resume home hypertensive meds Severe protein caloric malnutrition secondary to alcohol use Dietary supplements Disposition: DC-01 TO HOME OR SELFCARE Final Discharge Diagnosis (Prints w/discharge instructions): Toxic metabolic encephalopathy-resolved. Syphilis latent vs neurosyphilis-completed IV antibiotics. Hyponatremia. History of alcohol abuse. history of tobacco use. Hypertension. Severe malnutrition Time spent for discharge: 35 min Core Measure Documentation - Palliative Care Palliative Care/ Comfort Measures: Not Applicable - Core Measures Any of the following diagnoses?: none Exam - Constitutional Vitals: Temp Pulse Resp BP Pulse Ox 98.5 F 66 18 135/81 97 11/28/20 04:53 11/28/20 04:53 11/28/20 04:53 11/28/20 04:53 11/28/20 04:53 General appearance: Present: no acute distress, well-nourished - EENT Eyes: Present: PERRL, EOM intact - Neck Neck: Present: supple, normal ROM - Respiratory Respiratory effort: normal Respiratory: bilateral: diminished, negative: rales, rhonchi, wheezing - Cardiovascular Rhythm: regular Heart Sounds: Present: S1 & S2 - Extremities Extremities: no ischemia, No edema - Abdominal General gastrointestinal: Present: soft, non-tender, non-distended, normal bowel sounds - Integumentary Integumentary: Present: clear, warm - Musculoskeletal Musculoskeletal: strength equal bilaterally, generalized weakness - Psychiatric Psychiatric: appropriate mood/affect, cooperative - Neurologic Neurologic: CNII-XII intact, moves all extremities Plan Activity: no restrictions Diet: regular Special Instructions: smoking cessation Additional Instructions: Smoking cessation counseling done , advised nicotine patch as needed. Strongly advised to quit alcohol intake , go to alcohol rehabilitation /or attend alcohol Anonymous. advised to see primary care physician within 1 week. Advised to see ID in 1 to 2 weeks. If you have worsening symptoms contact MD or go to emergency room Follow up with: GIUSEPPE RIGGINS MD [Staff Physician] - 14 Days PRIMARY CARE, [Primary Care Provider] - 3-5 Days LEENA CHAMPAGNE MD [Staff Physician] - 7 Days Prescriptions: amLODIPine 10 mg PO QDAY #30 tablet Folic Acid [Folvite] 1 mg PO QDAY #30 tablet Gabapentin 300 mg PO QPM #30 capsule Nicotine [Habitrol] 14 mg TD QDAY #30 patch Thiamine [Vitamin B-1] 100 mg PO QDAY #30 tablet
[2020-11-28 10:20] VITALS: BP 137/75
[2020-11-28] MEDS: MULTIVITAMINS ,THERAPEUTIC TAB PO SCH (10:21)
[2020-11-28] MEDS: DOCUSATE SODIUM 100 MG CAP PO SCH (10:21)
[2020-11-28] MEDS: THIAMINE 100 MG TAB PO SCH (10:21)
[2020-11-28] MEDS: FOLIC ACID 1 MG TAB PO SCH (10:22)
[2020-11-28] MEDS: FLUoxetine 20 MG CAP PO SCH (10:22)
[2020-11-28] MEDS: NICOTINE 14 MG/24 HR PATCH TD SCH (10:22)
[2020-11-28] MEDS: amLODIPine 10 MG TAB PO SCH (10:23)
[2020-11-28] MEDS: HEPARIN 5,000 UNIT/1 ML VIAL SUB-Q SCH (10:24)
== END 2020-11-28 17:15 | disposition home or self-care (01) | DRG 871 ==
LOC: ED 14:26 → 3A 11-12 02:41
PROVIDERS: ADMIT Internal Medicine Geriatric Medicine; ATTEND Internal Medicine
DX: A41.9 Sepsis, unspecified organism (principal); G92 Toxic encephalopathy; E87.1 Hypo-osmolality and hyponatremia; Z20.822 Contact with and (suspected) exposure to COVID-19; I10 Essential (primary) hypertension; F32.9 Major depressive disorder, single episode, unspecified; G62.9 Polyneuropathy, unspecified; F10.10 Alcohol abuse, uncomplicated; F17.200 Nicotine dependence, unspecified, uncomplicated; E83.42 Hypomagnesemia; R26.9 Unspecified abnormalities of gait and mobility; R56.9 Unspecified convulsions; A53.9 Syphilis, unspecified; D64.9 Anemia, unspecified; Z88.8 Allergy status to other drugs, medicaments and biological substances; Z79.899 Other long term (current) drug therapy; Z79.891 Long term (current) use of opiate analgesic; Z79.01 Long term (current) use of anticoagulants
CPT/HCPCS: 36415; 70450; 70553; 71045; 80048; 80053; 80307; 80320; 81001; 82140; 82550; 82607; 82728; 83036; 83735; 83930; 83935; 84100; 84295; 84425; 84443; 84484; 85007; 85025; 85027; 85610; 85730; 86592; 86593; 86780; 87040; 87086; 87806; 93005; 96365; G0378; A9575; G0480; J1644; J2060; J2540; J3475; J7042; U0003